=== PATIENT | female | born 1965 | race Caucasian/White ===

== ENCOUNTER 2017-09-14 14:54 | Inpatient (IN) ==
[2017-09-14] MEDS ORDERED: Ondansetron 4 MG/2 ML VIAL IVP ONE (15:26)
[2017-09-14] MEDS ORDERED: 0.9 % Sodium Chloride 500 ML IVC ONE ×2 (15:28→17:38)
--- NOTE | 2017-09-14 15:30 | Emergency Department Note ---
START Narrative - START START: I examined this patient and my medical decision-making was reviewed with the Resident Physician. I agree with the documented findings, disposition and treatment plan as described except to the extent set forth below. 32-year-old female presents emergency room for intractable nausea and vomiting. Patient had a pacemaker defibrillator placed on Tuesday at [facility]. Ever since then she has been ill with intractable nausea and vomiting. She denies diarrhea or constipation. No fevers. No chest pain at this time. No new medications. Patient states she has been unable T any solid food since before her procedure. No other complaints this time. We will check some screening lab work. We will do a CT abdomen and pelvis as well. At on a chest x-ray. Her EKG is a paced rhythm.
--- NOTE | 2017-09-14 15:30 | Emergency Department Note ---
Disposition Clinical Impression: Small bowel obstruction Sepsis Qualifiers: Sepsis type: sepsis due to unspecified organism Qualified Code(s): A41.9 - Sepsis, unspecified organism Pneumonia Qualifiers: Pneumonia type: due to unspecified organism Laterality: bilateral Lung location : lower lobe of lung Qualified Code(s): J18.9 - Pneumonia, unspecified organism Dyspnea Qualifiers: Dyspnea type: shortness of breath Qualified Code(s): R06.02 - Shortness of breath; R06.00 - Dyspnea, unspecified; R06.01 - Orthopnea Disposition: Admitted As Inpatient Condition: Fair Forms: ED Satisfaction Letter Time of Disposition: 18:36 Nausea/Vomiting/Diarrhea HPI - General Chief complaint: ED Nausea/Vomiting/Diarrhea Stated complaint: N/V Time Seen by Provider: 09/14/17 15:01 Source: EMS Mode of arrival: ambulatory Limitations: no limitations Nursing Notes Reviewed: Yes Vital Signs Reviewed: Yes - History of Present Illness HPI Narrative: Ms. Lazo is a 52yo woman with history of sarcoidosis, bradycardia s/p AICD placement with replacement of BiV AICD on Tuesday at [facility] who presents to the ED for intractable nausea/vomiting following the procedure. She said that she has not been taking any opioid pain medication since leaving the hospital. She is unable to maintain any solid foods or liquids. She has associated pain in her abdomen which does not radiate, and is cramping in nature. Additionally, she says that she takes requip for RLS, and she has not been able to take her meds due to the n/v so her legs are cramping intensely. Significantly, the patient does have history of multiple abdominal surgeries including cholecystectomy, hysterectomy. Pt Subjective Complaint: nausea, vomiting, abdominal pain Onset (ago): day(s) Description of emesis: food contents, watery, bilious Associated Abdominal Pain: Yes If pain, Location of pain: diffuse, epigastric Severity: moderate Severity scale (1-10): 7 Quality: cramping Consistency: intermittent Improves with: nothing Worsens with: eating, vomiting, movement Context: recent surgery/procedure, history of abdominal surgery Associated symptoms: Denies: fever/chills, shortness of breath, syncope - Related Data Home Medications Medication Instructions Recorded Confirmed Aspirin 81 mg PO DAILY 05/09/15 07/08/17 Atorvastatin [Lipitor] 10 mg PO HS 05/09/15 07/08/17 Furosemide [Lasix] 20 mg PO DAILY 05/09/15 07/08/17 Metoprolol XL (24 HR) Succ [Toprol 25 mg PO HS 05/09/15 07/08/17 XL] Ropinirole HCl [Requip] 2 mg PO HS 02/01/16 07/08/17 Diclofenac Sodium [Voltaren] 75 mg PO BID PRN 01/14/17 07/08/17 Fluticasone Propionate [Flovent 2 puff IH BID 07/08/17 07/08/17 Hfa] Gabapentin [Neurontin] 600 mg PO TID 07/08/17 07/08/17 Melatonin [Melatin] 9 mg PO HS 07/08/17 07/08/17 Omeprazole [PriLOSEC] 40 mg PO DAILY 07/08/17 07/08/17 Potassium Chloride [K-Tab ER] 20 meq PO Q48H 07/08/17 07/08/17 Previous Rx's Medication Instructions Recorded Fluconazole [Diflucan] 150 mg PO ONCE #1 tablet 07/10/17 Sulfamethoxazole/Trimeth DS 1 each PO BID #10 tablet 07/10/17 [Bactrim DS] Lidocaine 1 each TP QDPC #14 adh..patch 08/28/17 Allergies Allergy/AdvReac Type Severity Reaction Status Date / Time nitrofurantoin AdvReac Mild Rash Verified 08/28/17 11:18 [From Macrobid] Review of Systems: CONSTITUTIONAL: No weight loss, fever, chills, weakness or fatigue. HEENT: Eyes: No visual loss, blurred vision, double vision or yellow sclerae. Ears, Nose, Throat: No hearing loss, sneezing, congestion, runny nose or sore throat. SKIN: No rash or itching. CARDIOVASCULAR: No chest pain, chest pressure or chest discomfort. No palpitations or edema. RESPIRATORY: No shortness of breath, cough or sputum. GASTROINTESTINAL: + n/v, abdominal pain NEUROLOGICAL: No headache, dizziness, syncope, paralysis, ataxia, numbness or tingling in the extremities. No change in bowel or bladder control. MUSCULOSKELETAL: Leg cramping while walking HEMATOLOGIC: No anemia, bleeding or bruising. LYMPHATICS: No enlarged nodes. No history of splenectomy. PSYCHIATRIC: No history of depression or anxiety. ENDOCRINOLOGIC: No reports of sweating, cold or heat intolerance. No polyuria or polydipsia. ALLERGIES: No history of asthma, hives, eczema or rhinitis. Past Medical History - Past Medical History Medical history: Reports: other Surgical history: Reports: cholecystectomy, hysterectomy, pacemaker/AICD, LYNNE/ BSO, other Psychiatric history: Reports: anxiety ABRASIVE GRINDER history: Reports: no ABRASIVE GRINDER history - Social History Smoking Status: Never smoker Smokeless Tobacco Status: No Alcohol use: Reports: none Drug use: Reports: none Physical Exam Gen.: Vitals noted. No acute distress. AAOx3 HEENT: PERRL/EOMI, oropharynx clear and mildly dry, Normocephalic, atraumatic Neck: Supple. No adenopathy. Cardiac: RRR, no murmur, +S1/S2 Chest: Bandage present over recent surgical incision without evidence of infection Pulmonary: CTA bilaterally, Poor inspiratory effort, no wheezes, rales or rhonchi, equal chest expansion Abdomen: Mildly distended, diffuse tenderness to palpation with worsening over epigastric region, no guarding Back: Nontender throughout. MSK: ROM intact, no joint swelling noted Extremities: no BLE edema, nontender calf, no cyanosis or clubbing Neuro: A&Ox3, moves all extremities, no focal deficits Psych: Appropriate mood and behavior - General Limitations: no limitations General appearance: alert Course - Reevaluation(s) Reevaluation #1: The patient has developed tachycardia following Time: 17:05 Reevaluation #2: CT demonstrates multifocal pneumonia, SBO, and possible UTI. WBC 21.3, patient has become tachycardic and is flushed. Urine, blood cultures x2 and lactic acid are pending. We will give the patient 1000ml ns bolus and start 125mls/hr. We are cautious to give fluids too quickly because of the patient's cardiac status. Starting broad spectrum antibiotics, NG tube and NPO diet. Contacting hospitalist for admission. Time: 17:44 Vital Signs Temperature 98.3 F 09/14/17 14:59 Pulse Rate 72 09/14/17 14:59 Respiratory Rate 22 09/14/17 14:59 Blood Pressure 117/83 09/14/17 14:59 O2 Sat by Pulse Oximetry 96 09/14/17 14:59 Temperature 98.3 F 09/14/17 14:59 Pulse Rate 72 09/14/17 14:59 Respiratory Rate 22 09/14/17 14:59 Blood Pressure 117/83 09/14/17 14:59 O2 Sat by Pulse Oximetry 98 09/14/17 15:25 Oxygen Delivery Oxygen Delivery Nasal Cannula Nausea/Vomiting/Diarrhea - [facility] Narrative Medical decision making narrative: Mrs. Lazo is a 52-year-old woman with history of sarcoidosis, bradycardia status post AICD reinsertion on Tuesday at [facility] present ED with intractable nausea and vomiting of 2 days' duration. She has been unable to maintain his fluid or solid diet, nor has she been able to take her medications. She is complaining of abdominal pain and tenderness, bloating, and pain in her legs it is associated with RLS which she has had chronically. At this time most pain is coming from the legs which she rates 10 out of 10, in which is usually resolved with the addition of her medication. Hepatitis admission her vitals are stable, she appears mildly distressed. Her EKG shows a paced rhythm but is initially unremarkable. CT shows multifocal pneumonia and SBO. Blood cultures, lactic acid, ABG are drawn. Broad spectrum antibiotics are started, and IVF fluids for sepsis are started. Fluids are started cautiously due to cardiac status and risk for fluid overload. The patient is NPO and NG tube is placed. The patient is accepted for admission by Dr. Toth. - Medical Records Medical records reviewed: Yes I reviewed the patient's medical records. - Lab Data Lab results reviewed: Yes I reviewed the patient's lab results. Result diagrams: 09/14/17 16:24 Lab Results 09/14/17 Range/Units 16:24 WBC 21.3 H (4.3-11.1) K/mcL RBC 5.89 H (3.82-4.97) M/mcL Hgb 15.8 H (11.5-15.4) g/dL Hct 51.1 H (35.3-44.9) % MCV 86.8 (83.0-100.0) fL MCH 26.8 L (28.0-33.3) pg MCHC 30.9 L (31.6-35.5) g/dL RDW 17.3 H (11.5-14.5) % Plt Count 364 (140-400) K/mcL MPV 9.1 L (9.4-12.4) fL Immature Gran % 0.6 (0-4) % Seg Neutrophils % 76.5 % Lymphocytes % 14.4 % Monocytes % 7.9 % Eosinophils % 0.4 % Basophils % 0.2 % Neutrophils # 16.3 H (1.6-8.9) K/mcL Lymphocytes # 3.1 (0.6-4.6) K/mcL Monocytes # 1.7 H (0.0-1.3) K/mcL Eosinophils # 0.1 (0.0-0.6) K/mcL Basophils # 0.1 (0.0-0.2) K/mcL Nucleated RBCs/100 WBC 0.1 H (0) /100 WBC - Radiology Data Radiology results reviewed: Yes I reviewed the patient's radiology results. - EKG Data EKG attestation: Yes I reviewed and interpreted this EKG. EKG results narrative: EKG demonstrates ventricular paced rhythm with a rate of 66, VT interval 132, QRS 129, QTC 367 with no other interpretation possible
[2017-09-14] MEDS ORDERED: rOPINIRole 1 MG TABLET PO ONE (15:37)
[2017-09-14 16:51] LABS: Basophils # 0.1 K/mcL (0.0-0.2); Basophils % 0.2 %; Eosinophils # 0.1 K/mcL (0.0-0.6); Eosinophils % 0.4 %; Hematocrit 51.1 % (35.3-44.9); Hemoglobin 15.8 g/dL (11.5-15.4); Immature Granulocytes % 0.6 % (0-4); Lymphocytes # 3.1 K/mcL (0.6-4.6); Lymphocytes % 14.4 %; Mean Corpuscular HGB Conc 30.9 g/dL (31.6-35.5); Mean Corpuscular Hemoglobin 26.8 pg (28.0-33.3); Mean Corpuscular Volume 86.8 fL (83.0-100.0); Mean Platelet Volume 9.1 fL (9.4-12.4); Monocytes # 1.7 K/mcL (0.0-1.3); Monocytes % 7.9 %; Neutrophils # 16.3 K/mcL (1.6-8.9); Nucleated Red Blood Cells 0.1 /100 WBC (0); Platelet Count 364 K/mcL (140-400); Red Blood Count 5.89 M/mcL (3.82-4.97); Red Cell Distribution Width 17.3 % (11.5-14.5); Segmented Neutrophils % 76.5 %
[2017-09-14 17:12] LABS: Albumin 5.2 g/dL (3.5-5.7); Albumin/Globulin Ratio 1.4 (1.1-2.2); Bilirubin,Total 0.7 mg/dL (0.3-1.0); Calcium 11.2 mg/dL (8.6-10.3); Globulin 3.7 g/dL (2.4-3.5); Potassium 3.2 mEq/L (3.5-5.1); Total Protein 8.9 g/dL (6.4-8.9)
[2017-09-14] MEDS ORDERED: Vancomycin 1,000 MG in D5% in Water 250 ML IVPB ONE (17:29)
[2017-09-14] MEDS ORDERED: 0.9 % Sodium Chloride 1,000 ML IVC SCH (17:45)
[2017-09-14 17:57] LABS: Bilirubin,Urine Negative (Negative); Blood,Urine Negative (Negative); Clarity,Urine Cloudy (Clear); Color,Urine Yellow (Yellow); Glucose,Urine (UA) Normal (Normal); Ketones,Urine Negative (Negative); Leukocyte Esterase,Urine Negative (Negative); Nitrite,Urine Negative (Negative); PH,Urine 7.5 pH Units (5.0-8.0); Protein,Urine 100 mg/dL (Neg-Trace); Specific Gravity,Urine 1.019 (1.010-1.025); Urobilinogen,Urine Normal (Normal)
[2017-09-14 18:01] LABS: Bacteria,Urine None Seen per hpf (None-Few); Hyaline Casts,Urine Few per lpf (None-Few); Squamous Epithelial Cell,Urine Many per lpf (None-Few); WBC,Urine 0-3 per hpf (0-3)
[2017-09-14 18:42] LABS: ABG Base Excess 17 mEq/L (-2 to 3); ABG HCO3 43 mEq/L (21-27); ABG Oxygen Saturation 97 % (95-98); ABG PCO2 55 mmHg (35-45); ABG PO2 81 mmHg (85-104); ABG TCO2 45 mEq/L (20-26)
[2017-09-14] MEDS ORDERED: Cefepime HCl 2,000 MG in Water for inj. (sterile) 20 ML IVP ONE (18:50)
[2017-09-14] MEDS ORDERED: *HR* Enoxaparin 100 MG/ML SYRINGE SQ STA (19:43)
[2017-09-14] MEDS ORDERED: Aspirin 325 MG TABLET PO ONE (19:43)
[2017-09-14] MEDS ORDERED: Naloxone 0.4 MG/ML INJ IVP PRN (21:46)
[2017-09-14 22:02] LABS: Magnesium 2.6 mg/dL (1.6-2.6); Phosphorous 6.8 mg/dL (2.7-4.5)
[2017-09-14] MEDS ORDERED: 0.9 % Sodium Chloride 1,000 ML IVC ONE (22:17)
--- NOTE | 2017-09-14 23:53 | Internal Med History&Physical ---
<Abraham Hand - Last Filed: 09/15/17 01:03> Date of Encounter: 09/14/17 Time of Encounter: 21:00 Assessment and Plan (1) Small bowel obstruction Current visit: Yes Status: Acute Acute small bowel obstruction. CT of the abdomen/pelvis today without contrast demonstrates that there is a moderate gastric distention with moderate dilatation of multiple proximal small bowel loops to the level of the lower midabdomen whereby a transition point is noted. There is a small bowel feces sign within the small bowel loops just proximal to the transition point. This is consistent with a small bowel obstruction likely secondary to an intra- abdominal adhesion. No obstructing mass lesion is identified. Small bowel distal to the transition point is collapsed. The colon is unremarkable. The appendix is normal. Surgery consult ordered and discussed w/Dr. Ibrahim and I appreciate the consult. NG tube placed for decompression w/copious amounts of liquid suctioned intermittently. Pt. received two 1L boluses of 0.9 NS and will be followed by 125 mL/HR. Will hold all meds and keep pt. NPO. Metoprolol IVP 2.5 mg Q6 PRN if SBP >140. Monitor I&O and daily weight. Pt. discussed w/Dr. Gunter who agrees w/plan of care. Pt. is at high risk for further morbidity d/t current sepsis, multifocal pneumonia, and small bowel obstruction. Inpatient. (2) Pneumonia Current visit: Yes Status: Acute Acute multifocal pneumonia. CT of the abdomen/pelvis without contrast today shows a new multifocal airspace consolidation with a right middle lobe lingula and bilateral lower lobe since the study of 07/08/2017 most consistent with multifocal pneumonia. A few scattered nodular opacities within the bilateral lung bases are stable and unchanged and are likely in infectious or inflammatory in etiology. WBC 21.3. Blood cultures x2. IVPB levaquin 750 mg Q48 (for renal dosing) and Zosyn 3.375 gm Q for infection coverage. Will adjust abx coverage based on culture results. Supplemental O2 titration with SPO2 monitoring. DuoNeb every 6 scheduled. Monitor pt. and f/u labs. Qualifiers: Pneumonia type: due to unspecified organism Laterality: bilateral Lung location: lower lobe of lung Qualified Code(s): J18.9 - Pneumonia, unspecified organism (3) Sepsis Current visit: Yes Status: Acute Pt. currently meets sepsis criteria based on WBC of 21.3, HR of 114 bpm, RR of 20, and multifocal pneumonia. Lactic acid ordered. Blood cultures x2. Pt. received two 1L boluses of 0.9 NS in ED followed by 125 mL/HR. IVPB levaquin 750 mg Q48 for renal dosing and Zosyn 3.375 gm Q8 for infection coverage. Will adjust abx coverage based on culture results. Monitor pt. and f/u labs. Continuous cardiac telemetry. Supplemental O2 w/titration and SpO2 monitoring. DuoNebs Q6 scheduled. Qualifiers: Sepsis type: sepsis due to unspecified organism Qualified Code(s): A41.9 - Sepsis, unspecified organism (4) Elevated troponin Current visit: Yes Status: Acute Acutely elevated troponin of 0.19 on admission. Pt. denies chest pain or any previous cardiac hx/angioplasty/stent placement. Possible demand ischemia d/t recurrent N/V and/or sepsis/infection r/t multifocal pneumonia. Trend x2. Continuous cardiac telemetry. Echocardiogram ordered. Will consider heparin drip based on echocardiogram/troponin results. (5) KELSIE (acute kidney injury) Current visit: Yes Status: Acute Acute kidney injury w/GFR of 26 and creatinine of 2.03 most likely d/t recurrent N/V and electrolyte imbalance and subsequent dehydration. IV fluid resuscitation. Avoid nephrotoxins. IVPB abx given w/renal dosing. Will monitor pt. and f/u labs. (6) Hypokalemia Current visit: Yes Status: Acute Acute hypokalemia most likely d/t recurrent N/V over the past two days. Potassium 3.2 on admission. D5 .45 w/20 mEq potassium ordered as well as 60 mEq IVPB over 6 hours d/t NG tube and current large amounts of gastric fluids being suctioned. Will monitor pt. and f/u labs for potassium status. Continuous cardiac telemetry. (7) Abnormal ABGs Current visit: Yes Status: Acute Acutely abnormal ABGs. 7.5 pH, 55 PCO2, 81 PO2, 43 HCO3, and total CO2 45. Base excess 17. Pt. placed on supplemental O2 with titration and SPO2 monitoring. Pt. currently reports no respiratory distress on nasal cannula. Will add BiPAP if patient becomes hypoxic. (8) CHF (congestive heart failure) Current visit: Yes Status: Chronic Hx of chronic CHF. Stable. Qualifiers: Congestive heart failure type: unspecified congestive heart failure type Congestive heart failure chronicity: unspecified congestive heart failure chronicity Qualified Code(s): I50.9 - Heart failure, unspecified (9) GERD (gastroesophageal reflux disease) Current visit: Yes Status: Chronic Hx of chronic GERD. IVP phenergan 12.5 mg Q6 PRN. IVP Protonix 40 mg BID. Qualifiers: Esophagitis presence: esophagitis presence not specified Qualified Code(s) : K21.9 - Gastro-esophageal reflux disease without esophagitis (10) HLD (hyperlipidemia) Current visit: Yes Status: Chronic Hx of chronic HLD. Lipid panel ordered in a.m. labs. Will continue Lipitor when pt. able to keep medications down. Qualifiers: Hyperlipidemia type: pure hypercholesterolemia Qualified Code(s): E78.00 - Pure hypercholesterolemia, unspecified; E78.0 - Pure hypercholesterolemia (11) HTN (hypertension) Current visit: Yes Status: Chronic Hx of chronic HTN. Monitor pt. and VS. Administer 2.5 mg metoprolol IVP Q6 if SBP >140. Qualifiers: Hypertension type: essential hypertension Qualified Code(s): I10 - Essential (primary) hypertension (12) Pacemaker Current visit: Yes Status: Chronic Hx of chronic pacemaker/AICD. Pt. reports replacement of BiV AICD at [facility] on Tuesday. Incision does not appear to be erythematous or infectious. Wound care consult and daily wound care ordered. (13) Sarcoidosis Current visit: Yes Status: Chronic Hx of chronic sarcoidosis. Stable. (14) DVT prophylaxis Current visit: Yes Status: Acute Bilateral SCDs on LEs for DVT prophylaxis. Internal Medicine - H&P: HPI Chief complaint: Abdominal pain/N/V Admitted From: Emergency Dept Plans for Post Hospital Care: Home History of present illness: Ms. Lazo is a 52 year old female with medical history of congestive heart failure, HTN, HLD, GERD, RLS, and sarcoidosis presents from ED with chief complaint of abdominal pain, nausea, and vomiting for the past 2 days. Patient reports this has never happened before. She states she was at [facility] on Tuesday for AICD replacement and began having intractable nausea and vomiting following the procedure. She states she is unable to keep down any solid foods or liquids and that the abdominal pain is epigastric and cramping. Patient states she takes Requip for restless leg syndrome is unable to take its her legs are cramping severely. Patient denies recent illness, fever, chills, headache, changes in vision, chest pain, palpitations, diarrhea, constipation, unusual bleeding, dizziness, lightheadedness, numbness, tingling, pre-syncope, or syncope. Past Med Surg Social Fam HX - Past Medical History Source: patient, old records reviewed Medical history: GERD, hyperlipidemia, hypertension Psychiatric history: anxiety - Past Surgical History Surgical History: cholecystectomy, hysterectomy, pacemaker/AICD, LYNNE/BSO - Social History Smoking Status: Never smoker Smokeless Tobacco Status: No Alcohol use: none Drug use: none Current living situation: Home Activity Level: Independent ambulation Recent Out of Country Travel Within the Last 8 Weeks: No Exposure or Possible Exposure to Illness During Travel: No - Family History Brother Race: Family Member Ethnicity: Non- Living Status: Still Living Hx Family Endocrine Disorder: Yes (DM) Mother Race: Family Member Ethnicity: Non- Living Status: Still Living Hx Family Respiratory Disorders: Yes (Asthma) Hx Family Neuromuscular Disorders: Yes (Parkinson's disease) Father Race: Family Member Ethnicity: Non- Living Status: Still Living Hx Family Cardiac Disorders: Yes (Triple bypass, CAD, MA, HTN) Internal Medicine - H&P: Meds Aspirin 81 mg PO DAILY 05/09/15 [History] Atorvastatin [Lipitor] 10 mg PO HS 05/09/15 [History] Furosemide [Lasix] 20 mg PO DAILY 05/09/15 [History] Metoprolol XL (24 HR) Succ [Toprol XL] 25 mg PO HS 05/09/15 [History] Ropinirole HCl [Requip] 2 mg PO HS 02/01/16 [History] Diclofenac Sodium [Voltaren] 75 mg PO BID PRN 01/14/17 [History] Fluticasone Propionate [Flovent Hfa] 2 puff IH BID PRN 07/08/17 [History] Gabapentin [Neurontin] 600 mg PO TID 07/08/17 [History] Melatonin [Melatin] 9 mg PO HS 07/08/17 [History] Omeprazole [PriLOSEC] 40 mg PO DAILY 07/08/17 [History] Potassium Chloride [K-Tab ER] 20 meq PO Q48H 07/08/17 [History] Fluconazole [Diflucan] 150 mg PO ONCE #1 tablet 07/10/17 [Rx] Lidocaine 1 each TP QDPC PRN 09/14/17 [History] Sulfamethoxazole/Trimeth DS [Bactrim DS] 1 each PO 3XW 09/14/17 [History] 3 Allergy/AdvReac Type Severity Reaction Status Date / Time nitrofurantoin AdvReac Mild Rash Verified 08/28/17 11:18 [From Macrobid] All Systems PM: A 10-system review of systems was performed and is negative for pertinent findings except as documented above in the HPI. - Constitutional Constitutional: no chills, no fever(s), no night sweats - EENT Eyes: no change in vision, no discharge, no pain, no photophobia Ears: no ear discharge, no ear pain, no tinnitus Nose, mouth and throat: no dysphagia, no nasal discharge, no neck pain, no sore throat - Breasts Breasts: as per HPI - Cardiovascular Cardiovascular ROS IM: no chest pain, no diaphoresis, no dyspnea, no lightheadedness, no palpitations, no syncope - Respiratory Respiratory: no cough, no dyspnea, no wheezing, no excessive phlegm production - Gastrointestinal Gastrointestinal: as per HPI, abdominal pain, nausea, vomiting - Genitourinary Genitourinary: no change in urinary stream, no dysuria, no flank pain, no hematuria Menstruation: as per HPI - Musculoskeletal Musculoskeletal ROS IM: no numbness, no tingling - Integumentary Integumentary IM: no rash, no unusual bruising - Neurological Neurological ROS: no confusion, no convulsions, no focal weakness, no numbness, no tingling, no tremor(s) - Psychiatric Psychiatric: as per HPI, anxiety - Endocrine Endocrine IM: as per HPI - Hematologic/Lymphatic Hematologic/Lymphatic: no easy bruising - Allergic/Immunologic Allergic/Immunologic: as per HPI - Constitutional Vitals: Temp Pulse Resp BP Pulse Ox 98.1 F 114 16 135/84 91 09/14/17 23:34 09/14/17 23:34 09/14/17 23:34 09/14/17 23:34 09/14/17 23:34 General appearance: Present: cooperative, mild distress, A&O X 3, pleasant, obese, answers questions appropriately - Head Head exam: Present: atraumatic, normocephalic - Eye Eye exam: Present: PERRL, conjuntiva pink, sclera anicteric Pupils: Present: PERRL - ENT ENT exam: Present: normal exam, normal external ear exam - Neck Neck exam general surgery: Present: normal inspection, supple, trachea midline. Absent: lymphadenopathy - Respiratory Respiratory exam: Present: CTAB, tachypnea. Absent: accessory muscle use, rales , rhonchi, wheezes - Cardiovascular Cardiovascular exam: Present: +S1, +S2, tachycardia. Absent: diastolic murmur, gallop, rubs, systolic murmur - GI/Abdominal GI/Abdominal exam: Present: diminished bowel sounds, guarding, soft, no peritoneal signs. Absent: distended, tenderness - Rectal Rectal exam: Present: deferred - Additional comments: exam deferred. - Extremities Exam Extremities exam: Present: warm, radial pulses palpable and symmetrical. Absent : calf tenderness, cyanotic, pedal edema - Back Exam Back exam: Present: normal inspection - Neurological Exam Neurological exam: Present: CN II-XII intact, oriented X3, no focal deficits. Absent: pronater drift, facial droop, speech deficit - Psychiatric Psychiatric exam: Present: normal affect, normal mood - Skin Skin exam: Present: dry, intact Internal Med - H&P Results - Labs CBC & Chem 7: 09/14/17 16:24 09/14/17 16:24 - Diagnostic Studies CT scan - abdomen Additional comments: Impressions Abdomen/Pelvis CT 09/14/17 15:22 IMPRESSION: 1. Findings are consistent with a small bowel obstruction within the lower mid abdomen, with a focal transition point noted, likely secondary to an intra-abdominal adhesion. There is no evidence of pneumatosis, perforation, or free air. 2. A 4 mm calculus within the right kidney lower pole, without evidence of a ureteral calculus or hydronephrosis. 3. Mild amount of nonspecific intraluminal gas within the urinary bladder, likely secondary to prior instrumentation. A gas-forming cystitis is considered less likely. 4. Patient status post cholecystectomy and hysterectomy. 5. New multifocal consolidative opacity within bilateral lung bases, most consistent with multifocal pneumonia. D/ / 09/14/2017 17:43:21 Nik Rordiguez MD / Tisha Fuentes Interpreting Provider: Nik Rodriguez MD Chest x-ray Additional comments: Impressions Chest X-Ray 09/14/17 15:27 IMPRESSION: Bibasilar volume loss. Otherwise, stable chest D/ / Anderson Hall MD / Anderson Hall MD Interpreting Provider: Anderson Hall MD <LyricBrianda N - Last Filed: 09/15/17 01:49> Date of Encounter: 09/15/17 Internal Medicine - H&P: HPI History of present illness: Ms. Lazo is a 52 year old female All Systems PM: A 10-system review of systems was performed and is negative for pertinent findings except as documented above in the HPI. - Constitutional Vitals: Temp Pulse Resp BP Pulse Ox 98.1 F 114 16 135/84 91 09/14/17 23:34 09/14/17 23:34 09/14/17 23:34 09/14/17 23:34 09/14/17 23:34 Internal Med - H&P Results - Labs CBC & Chem 7: 09/14/17 16:24 09/14/17 16:24 - Attending Attestation Patient seen and examined, history and physical reviewed, discussed with Abraham Hand. [employer]. Agree with plan as discussed above. Patient came to the hospital was complaining of intractable nausea and vomiting. Patient denies any abdominal pain, patient denies any dysuria or hematuria, patient denies any fever or chills. Patient denies any chest pain or shortness of breath. Patient denies any cough. CT abdomen was consistent with small bowel obstruction Nasogastric tube placed and patient had high output from her NG tube O. Vital signs stable Chest decreased breathing sound bilateral Heart S1 is normal regular rate and rhythm Abdomen soft bowel sound diminished in all 4 quadrant Extremity no edema Assessment and plan Small bowel obstruction Multifocal pneumonia For now continue nasogastric tube, IV hydration, replace electrolytes, surgery was notified, discussed with patient about plan of conservative management for now. Patient was recently admitted to the hospital for AICD will cover for healthcare associated pneumonia .
[2017-09-14] MEDS: D5% in 0.45% NACL w KCl 20 MEQ/1,000 ML MLS IVC SCH (23:57)
[2017-09-14] MEDS: Pantoprazole 40 MG VIAL IVP SCH (23:57)
[2017-09-14] MEDS: Levofloxacin 750 MG/150 ML 750 MG/150 ML BAG IVPB SCH (23:58)
[2017-09-15 01:02] LABS: Basophils # 0.1 K/mcL (0.0-0.2); Basophils % 0.4 %; Eosinophils # 0.1 K/mcL (0.0-0.6); Eosinophils % 0.4 %; Hematocrit 46.7 % (35.3-44.9); Hemoglobin 14.6 g/dL (11.5-15.4); Immature Granulocytes % 0.4 % (0-4); Lymphocytes # 2.5 K/mcL (0.6-4.6); Lymphocytes % 13.8 %; Mean Corpuscular HGB Conc 31.3 g/dL (31.6-35.5); Mean Corpuscular Hemoglobin 27.2 pg (28.0-33.3); Mean Corpuscular Volume 87.1 fL (83.0-100.0); Mean Platelet Volume 8.9 fL (9.4-12.4); Monocytes # 1.5 K/mcL (0.0-1.3); Monocytes % 8.3 %; Neutrophils # 13.9 K/mcL (1.6-8.9); Platelet Count 292 K/mcL (140-400); Red Blood Count 5.36 M/mcL (3.82-4.97); Red Cell Distribution Width 16.7 % (11.5-14.5); Segmented Neutrophils % 76.7 %
[2017-09-15 01:17] LABS: Magnesium 2.5 mg/dL (1.6-2.6); Phosphorous 6.1 mg/dL (2.7-4.5)
[2017-09-15] MEDS: D5% in 0.45% NACL w KCl 20 MEQ/1,000 ML MLS IVC SCH ×4 (01:44→18:36)
[2017-09-15] MEDS: Levofloxacin 750 MG/150 ML 750 MG/150 ML BAG IVPB SCH (01:57)
[2017-09-15] MEDS: Piperacillin/Tazobactam 3.375 GM/200 ML BAG IVPB SCH ×3 (01:58→23:47)
[2017-09-15 03:07] LABS: Albumin 4.4 g/dL (3.5-5.7); Albumin/Globulin Ratio 1.3 (1.1-2.2); Calcium 9.7 mg/dL (8.6-10.3); Chol/HDL Ratio 2.9 (0-4.9); Globulin 3.3 g/dL (2.4-3.5); Total Protein 7.7 g/dL (6.4-8.9)
[2017-09-15] MEDS: Ipratropium/Albuterol Neb 3 ML IH SCH ×4 (04:39→21:07)
[2017-09-15] MEDS: Pantoprazole 40 MG VIAL IVP SCH (05:53)
[2017-09-15] MEDS: *HR* Metoprolol 5 MG/5 ML VIAL IVP SCH ×5 (05:53→23:44)
[2017-09-15] MEDS: *HR* HYDROmorphone (PF) 1 MG/ML SYRINGE IVP PRN ×4 (06:24→21:43)
--- NOTE | 2017-09-15 11:02 | Internal Med Progress Note ---
Date of Encounter: 09/15/17 Time of Encounter: 09:30 - Assessment and plan (1) Small bowel obstruction Current Visit: Yes Status: Acute Assessment and plan: Acute SBO at the level of the lower mid abdomen likely due to intra-abdominal adhesion - causing abdominal pain, nausea and vomiting NPO, IV fluids, NG tube decompression, IV Dilaudid PRN, IV Protonix, IV Zofran CT abdomen and pelvis - reviewed Chest x-ray - bibasilar volume loss WBC - 18.2 UA - negative Gen. surgery consult - Dr. Ibrahim will evaluate patient Cardiac telemetry, strict I's and O's, labs in a.m. (2) Pneumonia Current Visit: Yes Status: Acute Assessment and plan: Sepsis, present on admission - secondary to Bilateral multifocal pneumonia, present on admission, possible healthcare associated, likely bacterial Continue DuoNeb breathing treatment, IV Levaquin, IV Zosyn, O2 via NC Chest x-ray - bibasilar volume loss CT abdomen - multifocal consolidative opacity within bilateral lung bases, likely multifocal pneumonia Lactic acid - 2.5 WBC - 18.2 Cultures - pending Cardiac telemetry, pulse ox, strict intake output, daily weight, labs in a.m. Qualifiers: Pneumonia type: due to unspecified organism Laterality: bilateral Lung location: lower lobe of lung Qualified Code(s): J18.9 - Pneumonia, unspecified organism (3) KELSIE (acute kidney injury) Current Visit: Yes Status: Acute Assessment and plan: Acute kidney injury - likely secondary to sepsis and volume depletion/ dehydration due to vomiting Continue IV fluids, repeat labs in a.m. Nephrology consult if renal function worsens (4) Elevated troponin Current Visit: Yes Status: Acute Assessment and plan: Troponin - 0.18, cycle troponin - possibly elevated due to pneumonia, sepsis and recurrent nausea/vomiting and nonischemic cardiomyopathy Patient denies history of CAD, denies chest pain or shortness of breath EKG - paced rhythm Echocardiogram - pending (5) Cardiomyopathy Current Visit: Yes Status: Chronic Assessment and plan: History of nonischemic cardiomyopathy - improved EF with S[employer]IOR [employer] SUPPORT therapy S/p BiV AICD placement on Tuesday at [facility] Echocardiogram - pending Qualifiers: Cardiomyopathy type: unspecified Qualified Code(s): I42.9 - Cardiomyopathy , unspecified (6) Hypokalemia Current Visit: Yes Status: Acute Assessment and plan: Hypokalemia likely due to nausea and vomiting KCl being replaced (7) Sarcoidosis Current Visit: Yes Status: Chronic Assessment and plan: Stable, patient is on Methotrexate weekly Follows up with pulmonology at [facility] (8) HTN (hypertension) Current Visit: Yes Status: Chronic Assessment and plan: Essential hypertension, controlled, monitor Continue home dose of Toprol-XL when patient is taking PO Qualifiers: Hypertension type: essential hypertension Qualified Code(s): I10 - Essential (primary) hypertension (9) HLD (hyperlipidemia) Current Visit: Yes Status: Chronic Assessment and plan: Patient is on Lipitor at home Qualifiers: Hyperlipidemia type: unspecified Qualified Code(s): E78.5 - Hyperlipidemia , unspecified (10) DVT prophylaxis Current Visit: Yes Status: Acute Assessment and plan: Heparin subcutaneous - Time Spent With Patient 25 - 35 minutes - Subjective Interval history: Examined this morning. Patient is awake and alert. Not in any distress. Denies chest pain or shortness of breath. NG tube in place. Patient states her abdominal pain is improved and vomiting is now resolved. She reports passing flatus. No other acute events or complaints. Hemodynamically stable. No fever. Patient does have a past medical history of CHF, hypertension, hyperlipidemia, GERD and sarcoidosis. She had an pacer/AICD placed at [facility] on Tuesday. Her rhythm is currently paced. Troponin is elevated. Admitted last night for acute small bowel obstruction. Patient also has multifocal pneumonia. We will continue IV antibiotics and DuoNeb breathing treatment. Surgery has been consulted. Cardiology consult pending. - Constitutional Vitals: Temp Pulse Resp BP Pulse Ox 98.2 F 98 16 138/80 92 09/15/17 10:38 09/15/17 10:38 09/15/17 10:46 09/15/17 10:38 09/15/17 10:46 General appearance: Present: cooperative, A&O X 3, pleasant, no acute distress, obese, answers questions appropriately - Head Head exam: Present: atraumatic - Eye Eye exam: Present: EOMI - ENT ENT exam: Present: mucous membranes dry Additional comments: NG tube in place - Respiratory Respiratory exam: Present: wheezes (Mild bilateral). Absent: accessory muscle use, chest wall tenderness, rales, respiratory distress, rhonchi, tachypnea - Cardiovascular Cardiovascular exam: Present: RRR, +S1, +S2 - GI/Abdominal GI/Abdominal exam: Present: diminished bowel sounds, distended, soft, tenderness (Mild epigastric and periumbilical tenderness), no peritoneal signs. Absent: firm, guarding - Extremities Exam Extremities exam: Present: pedal edema (Mild bilateral), radial pulses palpable and symmetrical. Absent: calf tenderness, cyanotic - Neurological Exam Neurological exam: Present: alert, oriented X3, no focal deficits. Absent: facial droop, speech deficit Internal Medicine: Result - Labs CBC & Chem 7: 09/15/17 00:51 09/15/17 00:51 Labs: Short CBC 09/15/17 Range/Units 00:51 WBC 18.2 H (4.3-11.1) K/mcL Hgb 14.6 (11.5-15.4) g/dL Hct 46.7 H (35.3-44.9) % Plt Count 292 (140-400) K/mcL Neutrophils # 13.9 H (1.6-8.9) K/mcL BMP 09/15/17 00:51 Sodium 147 H Potassium 3.0 L Chloride 90 L Carbon Dioxide 32 H BUN 40 H Creatinine 1.72 H Glucose 138 H Calcium 9.7 Cardiac Enzymes 09/15/17 Range/Units 00:51 Troponin I 0.18 H* (< 0.04) ng/mL Liver Function 09/15/17 Range/Units 00:51 Total Bilirubin 1.0 (0.3-1.0) mg/dL AST 25 (13-39) Units/L ALT 43 (7-52) Units/L Alkaline Phosphatase 104 (34-104) Units/L Albumin 4.4 (3.5-5.7) g/dL - ABG Interpretation ABG results: ABG ABG pH 7.50 pH Units (7.32-7.45) H 09/14/17 18:37 ABG pCO2 55 mmHg (35-45) H 09/14/17 18:37 ABG pO2 81 mmHg (85-104) L 09/14/17 18:37 ABG O2 Saturation 97 % (95-98) 09/14/17 18:37 Consult Discharge Plan - Plan Referrals: Cole Bryant, [facility] [Primary Care Provider] -
--- NOTE | 2017-09-15 12:50 | Cardiology Consult Note ---
<Tawana Ashley Teddy - Last Filed: 09/15/17 12:54> Date of Encounter: 09/15/17 Time of Encounter: 12:20 Assessment and Plan (1) Elevated troponin Current Visit: Yes Status: Acute Patient presents with elevated troponin in the setting of KELSIE, small bowel obstruction, and PNA; this likely secondary to demand ischemia. Of note, recently underwent upgrade to CLINICAL CARE MANAGER-D at [facility] on 09/12/17. TTE completed demonstrated improved LVEF 55-60%, was previously 40% at [facility] in June 2016. She denies chest pain or discomfort. LHC 2012 demonstrated normal coronary arteries. Continue home CV medications, when able (take PO), including asa, lipitor, lasix , & toprol XL No further cardiac testing recommended at this time. (2) Nonischemic cardiomyopathy Current Visit: Yes Status: Acute Hx of non-ischemic cardiomyopathy dating back to 2012. Now follows with EP at [facility]. Recent upgrade to CLINICAL CARE MANAGER-D on 09/12/17 at [facility]. TTE demonstrates improved LVEF, 55-60%. Continue home CV medications. Discussion w patient/family: The assessment and plan as outlined above was discussed with the patient and/or family members who expressed understanding and agreement. All questions were answered. Thank you for involving us in the care of your patient. Please call with any questions. The patient will be discussed and reviewed with Dr. Saleh; changes to be made accordingly. History of Present Illness Consult date: 09/15/17 Requesting physician: Jose Alberto Clark Consult reason: Elevated troponin Chief complaint: Nausea/vomiting History of present illness: Ms. Lazo is a 52 year old female with PMHx significant for AVB, nonischemic cardiomyopathy s/p CLINICAL CARE MANAGER-D (recent upgrade at [facility] on 09/12/17), and sarcoidosis who presented to the ED on 09/14/17 with complaints of nausea and vomiting. Patient reports symptoms started last Tuesday. Of note, recent upgrade of AICD at [facility], was discharged on 09/13/17. Imaging confirmed small bowel obstruction, was noted to have an KELSIE, UTI, and possible PNA. Cardiology consulted today for elevated troponin. Past Med Surg Social Fam HX - Past Medical History Attestation: Yes The following information was validated with the patient. Source: patient, old records reviewed, obtained from family Medical history: cardiomyopathy, GERD, hyperlipidemia, hypertension, other ( sarcoidosis) Psychiatric history: anxiety - Past Surgical History Surgical History: cholecystectomy, hysterectomy, LYNNE/BSO, AICD - Social History Smoking Status: Never smoker Smokeless Tobacco Status: No Alcohol use: none Drug use: none - Family History Brother Race: Family Member Ethnicity: Non- Living Status: Still Living Hx Family Endocrine Disorder: Yes (DM) Mother Race: Family Member Ethnicity: Non- Living Status: Still Living Hx Family Respiratory Disorders: Yes (Asthma) Hx Family Neuromuscular Disorders: Yes (Parkinson's disease) Father Race: Family Member Ethnicity: Non- Living Status: Still Living Hx Family Cardiac Disorders: Yes (Triple bypass, CAD, [place], HTN) Hx Family Respiratory Disorders: No Hx Family GI Disorders: Yes Medications and Allergies Aspirin 81 mg PO DAILY 05/09/15 [History] Atorvastatin [Lipitor] 10 mg PO HS 05/09/15 [History] Furosemide [Lasix] 20 mg PO DAILY 05/09/15 [History] Metoprolol XL (24 HR) Succ [Toprol XL] 25 mg PO HS 05/09/15 [History] Ropinirole HCl [Requip] 2 mg PO HS 02/01/16 [History] Diclofenac Sodium [Voltaren] 75 mg PO BID PRN 01/14/17 [History] Fluticasone Propionate [Flovent Hfa] 2 puff IH BID PRN 07/08/17 [History] Gabapentin [Neurontin] 600 mg PO TID 07/08/17 [History] Melatonin [Melatin] 9 mg PO HS 07/08/17 [History] Omeprazole [PriLOSEC] 40 mg PO DAILY 07/08/17 [History] Potassium Chloride [K-Tab ER] 20 meq PO Q48H 07/08/17 [History] Sulfamethoxazole/Trimeth DS [Bactrim DS] 1 each PO 3XW 09/14/17 [History] Amitriptyline [Elavil] 10 - 20 mg PO HS PRN 09/15/17 [History] BuPROPion XL (24 HR) [Wellbutrin XL] 150 mg PO BID 09/15/17 [History] FLUoxetine HCl [Prozac] 40 mg PO DAILY 09/15/17 [History] Folic Acid 1 mg PO DAILY 09/15/17 [History] Lidocaine Patch [Lidoderm 5% patch] 1 each TP DAILY 09/15/17 [History] Methotrexate [Otrexup] 10 mg PO QWEEK 09/15/17 [History] Mv,Fe,Min/Lutein [A Thru Z [employer] Women's Tablet] 1 tab PO DAILY 09/15/17 [ History] PredniSONE [Deltasone] 30 mg PO DAILY 09/15/17 [History] hydrOXYzine HCl [Hydroxyzine HCl] 25 mg PO BID 09/15/17 [History] 3 Allergy/AdvReac Type Severity Reaction Status Date / Time nitrofurantoin AdvReac Mild Rash Verified 08/28/17 11:18 [From Macrobid] All Systems Review: A 10-system review of systems was performed and is negative for pertinent findings except as documented above in the HPI. - Cardiovascular Cardiovascular: as per HPI Physical Examination Vital Signs, Last 4 Hours Temp Pulse Resp BP Pulse Ox 09/15/17 10:46 16 92 09/15/17 10:38 98.2 F 98 16 138/80 91 General: Conversant HEENT: Atraumatic, Normocephaly, Other (NGT to LWIS) Cardiac: Reg Rate and Rhythm, Normal S1 and S2 Lungs: Normal Breath Sounds Neuro: Alert and responsive Abdomen: Soft, Other (obese) Skin: No rashes noted on visualized skin Musculoskeletal: No Chest Wall Tenderness Extremities: No Edema, Normal Pulses Results 09/15/17 00:51 09/15/17 00:51 Lab Results 09/15/17 09/15/17 09/15/17 00:51 00:51 00:51 WBC 18.2 H Hgb 14.6 Hct 46.7 H Plt Count 292 Sodium 147 H Potassium 3.0 L Chloride 90 L Carbon Dioxide 32 H BUN 40 H Creatinine 1.72 H Glucose 138 H Calcium 9.7 Magnesium 2.5 Total Bilirubin 1.0 AST 25 ALT 43 Alkaline Phosphatase 104 Troponin I 0.18 H* Active Medications Albuterol/Ipratropium (Duoneb) 3 ml IH [id number] [facility] Stop: 03/17/18 04:01 Last Admin: 09/15/17 10:45 Dose: 3 ml Heparin Sodium (Porcine) (Heparin) 5,000 unit SQ Q8HCO [facility] Stop: 03/17/18 14:01 Hydromorphone HCl (Dilaudid) 0.5 mg IVP Q4HR PRN PRN Reason: Severe Pain (7-10) Stop: 03/16/18 21:33 Last Admin: 09/15/17 11:15 Dose: 0.5 mg Potassium Chloride/Dextrose/Sod Cl (Kcl 20meq In D5%-0.45 Nacl) 20 meq in 1, 000 mls @ 125 mls/hr IVC .Q8H [facility] Stop: 03/16/18 22:01 Last Admin: 09/15/17 11:19 Dose: 125 mls/hr Levofloxacin/Dextrose (Levaquin Premix 750mg/150 Ml) 750 mg in 150 mls @ 100 mls/hr IVPB Q48H ANDREA PRN Reason: Protocol Stop: 03/16/18 22:01 Last Admin: 09/15/17 01:57 Dose: 100 mls/hr Piperacillin Sod/Tazobactam Sod (Zosyn Premix 3.375 Gm/200 Ml) 3.375 gm in 200 mls @ 50 mls/hr IVPB Q8HR [facility] Stop: 03/17/18 00:01 Last Admin: 09/15/17 08:29 Dose: 50 mls/hr Metoprolol Tartrate (Lopressor) 2.5 mg IVP Q6HR [facility] Stop: 03/17/18 06:01 Last Admin: 09/15/17 12:56 Dose: Not Given Naloxone HCl (Narcan) 0.4 mg IVP Q2MIN PRN PRN Reason: Opioid Reversal Stop: 03/16/18 21:47 Pantoprazole Sodium (Protonix) 40 mg IVP DAILY@0700 [facility] Stop: 03/18/18 07:01 Promethazine HCl (Phenergan) 12.5 mg IVP Q6HR PRN PRN Reason: Nausea And Vomiting Stop: 03/16/18 21:33 - Imaging and Cardiology Echo: report reviewed Cardiac cath: report reviewed - EKG Interpretation EKG results cardiology: personally reviewed Consult Discharge Plan - Plan Referrals: Cole Bryant, MEDICAL RADIATION TECH [Primary Care Provider] - <Tiara Saleh - Last Filed: 09/15/17 17:20> Date of Encounter: 09/15/17 - Attending Attestation I examined this patient and my medical decision-making was reviewed with the MEDICAL RADIATION TECH. I agree with the documented findings, disposition and treatment plan. Patient presents with mild troponin elevation in setting of ARF, UTI, PNA and SBO. Recently had a device upgrade at [facility]. TTE completed demonstrating an improvement in LV systolic function, previously 40% in June 2016. She denies chest pain. EKG without acute findings. No further cardiac testing is warranted at this time. Troponins do not represent acute coronary syndrome. We will sign off. Please call with questions. Patient would like to follow with [facility] cardiology. Assessment and Plan Discussion w patient/family: The assessment and plan as outlined above was discussed with the patient and/or family members who expressed understanding and agreement. All questions were answered. Thank you for involving us in the care of your patient. Please call with any questions. History of Present Illness History of present illness: Ms. Lazo is a 52 year old female All Systems Review: A 10-system review of systems was performed and is negative for pertinent findings except as documented above in the HPI. Physical Examination Vital Signs, Last 4 Hours Temp Pulse Resp BP Pulse Ox 09/15/17 15:44 98.9 F 117 18 101/67 86 Results 09/15/17 00:51 09/15/17 00:51 Lab Results 09/15/17 09/15/17 09/15/17 00:51 00:51 00:51 WBC 18.2 H Hgb 14.6 Hct 46.7 H Plt Count 292 Sodium 147 H Potassium 3.0 L Chloride 90 L Carbon Dioxide 32 H BUN 40 H Creatinine 1.72 H Glucose 138 H Calcium 9.7 Magnesium 2.5 Total Bilirubin 1.0 AST 25 ALT 43 Alkaline Phosphatase 104 Troponin I 0.18 H*
[2017-09-15] MEDS ORDERED: Bisacodyl 10 MG RECTAL SUPPOSITORY RC ONE (13:33)
--- NOTE | 2017-09-15 13:33 | General Surgery Consult Note ---
Date of Encounter: 09/15/17 Time of Encounter: 13:28 History of Present Illness Consult date: 09/15/17 Requesting physician: Abraham Hand History of present illness: Called to see patient for radiologic findings (CT abd/pellvis) suggestive SBO. CT, personally reviewed with [facility], with findings reviewed. The patient describes prior surgical history to include: hernia repair as a child, cholecystectomy and robotic hysterectomy. One of these procedures may have caused internal adhesions/scarring contributing to the finding of SBO. At the time of my presentation at bedside; the patient was in no acute distress the abdominal pain had resolved and the nausea vomiting had ceased. The abdomen was soft, nontender. No intra-abdominal masses. No rebound. Bowel sounds were rare. The patient scribed passing flatus prior to me to remove the NG. Based on the patient's symptoms over the last 48 hours and the radiologic findings I will order a small bowel follow-through using Gastrografin. This is been discussed with the patient and her family in attendance. Complete surgical consultation is still pending. Past Med Surg Social Fam HX - Past Medical History Medical history: cardiomyopathy, GERD, hyperlipidemia, hypertension, other ( sarcoidosis) Psychiatric history: anxiety - Past Surgical History Surgical History: cholecystectomy, hysterectomy, LYNNE/BSO, AICD - Social History Smoking Status: Never smoker Smokeless Tobacco Status: No Alcohol use: none Drug use: none - Family History Brother Race: Family Member Ethnicity: Non- Living Status: Still Living Hx Family Endocrine Disorder: Yes (DM) Mother Race: Family Member Ethnicity: Non- Living Status: Still Living Hx Family Respiratory Disorders: Yes (Asthma) Hx Family Neuromuscular Disorders: Yes (Parkinson's disease) Father Race: Family Member Ethnicity: Non- Living Status: Still Living Hx Family Cardiac Disorders: Yes (Triple bypass, CAD, [place], HTN) Hx Family Respiratory Disorders: No Hx Family GI Disorders: Yes Medications and Allergies Aspirin 81 mg PO DAILY 05/09/15 [History] Atorvastatin [Lipitor] 10 mg PO HS 05/09/15 [History] Furosemide [Lasix] 20 mg PO DAILY 05/09/15 [History] Metoprolol XL (24 HR) Succ [Toprol XL] 25 mg PO HS 05/09/15 [History] Ropinirole HCl [Requip] 2 mg PO HS 02/01/16 [History] Diclofenac Sodium [Voltaren] 75 mg PO BID PRN 01/14/17 [History] Fluticasone Propionate [Flovent Hfa] 2 puff IH BID PRN 07/08/17 [History] Gabapentin [Neurontin] 600 mg PO TID 07/08/17 [History] Melatonin [Melatin] 9 mg PO HS 07/08/17 [History] Omeprazole [PriLOSEC] 40 mg PO DAILY 07/08/17 [History] Potassium Chloride [K-Tab ER] 20 meq PO Q48H 07/08/17 [History] Sulfamethoxazole/Trimeth DS [Bactrim DS] 1 each PO 3XW 09/14/17 [History] Amitriptyline [Elavil] 10 - 20 mg PO HS PRN 09/15/17 [History] BuPROPion XL (24 HR) [Wellbutrin XL] 150 mg PO BID 09/15/17 [History] FLUoxetine HCl [Prozac] 40 mg PO DAILY 09/15/17 [History] Folic Acid 1 mg PO DAILY 09/15/17 [History] Lidocaine Patch [Lidoderm 5% patch] 1 each TP DAILY 09/15/17 [History] Methotrexate [Otrexup] 10 mg PO QWEEK 09/15/17 [History] Mv,Fe,Min/Lutein [A Thru Z [employer] Women's Tablet] 1 tab PO DAILY 09/15/17 [ History] PredniSONE [Deltasone] 30 mg PO DAILY 09/15/17 [History] hydrOXYzine HCl [Hydroxyzine HCl] 25 mg PO BID 09/15/17 [History] 3 Allergy/AdvReac Type Severity Reaction Status Date / Time nitrofurantoin AdvReac Mild Rash Verified 08/28/17 11:18 [From Macrobid] Review of Systems All systems PM: A 10-system review of systems was performed and is negative for pertinent findings except as documented above in the HPI. General Surgery Exam Initial Vital Signs Temp Pulse Resp BP Pulse Ox 98.3 F 72 22 117/83 96 09/14/17 14:59 09/14/17 14:59 09/14/17 14:59 09/14/17 14:59 09/14/17 14:59 Exam Initial Vital Signs Temp Pulse Resp BP Pulse Ox 98.3 F 72 22 117/83 96 09/14/17 14:59 09/14/17 14:59 09/14/17 14:59 09/14/17 14:59 09/14/17 14:59 Results - Labs 09/15/17 00:51 09/15/17 00:51 Abnormal lab results WBC 18.2 K/mcL (4.3-11.1) H 09/15/17 00:51 RBC 5.36 M/mcL (3.82-4.97) H 09/15/17 00:51 Hct 46.7 % (35.3-44.9) H 09/15/17 00:51 MCH 27.2 pg (28.0-33.3) L 09/15/17 00:51 MCHC 31.3 g/dL (31.6-35.5) L 09/15/17 00:51 RDW 16.7 % (11.5-14.5) H 09/15/17 00:51 MPV 8.9 fL (9.4-12.4) L 09/15/17 00:51 Neutrophils # 13.9 K/mcL (1.6-8.9) H 09/15/17 00:51 Monocytes # 1.5 K/mcL (0.0-1.3) H 09/15/17 00:51 Nucleated RBCs/100 WBC 0.1 /100 WBC (0) H 09/14/17 16:24 ABG pH 7.50 pH Units (7.32-7.45) H 09/14/17 18:37 ABG pCO2 55 mmHg (35-45) H 09/14/17 18:37 ABG pO2 81 mmHg (85-104) L 09/14/17 18:37 ABG HCO3 43 mEq/L (21-27) H 09/14/17 18:37 ABG Total CO2 45 mEq/L (20-26) H 09/14/17 18:37 ABG Base Excess 17 mEq/L (-2 to 3) H 09/14/17 18:37 Sodium 147 mEq/L (136-145) H 09/15/17 00:51 Potassium 3.0 mEq/L (3.5-5.1) L 09/15/17 00:51 Chloride 90 mEq/L (98-107) L 09/15/17 00:51 Carbon Dioxide 32 mEq/L (23-29) H 09/15/17 00:51 BUN 40 mg/dL (6-20) H 09/15/17 00:51 Creatinine 1.72 mg/dL (0.60-1.20) H 09/15/17 00:51 Est GFR ( Amer) 38 (> 60) L 09/15/17 00:51 Est GFR (Non-Af Amer) 31 (> 60) L 09/15/17 00:51 Glucose 138 mg/dL (70-105) H 09/15/17 00:51 Calculated Osmolality 316 (280-300) H 09/15/17 00:51 Lactic Acid 2.5 mmol/L (0.5-2.2) H 09/15/17 02:38 Phosphorus 6.1 mg/dL (2.7-4.5) H 09/15/17 00:51 Troponin I 0.18 ng/mL (< 0.04) H* 09/15/17 00:51 Triglycerides 236 mg/dL (< 150) H 09/15/17 00:51 VLDL Cholesterol, Calc 47 mg/dL (< 31) H 09/15/17 00:51 HDL Cholesterol 68 mg/dL (40-59) H 09/15/17 00:51 Urine Clarity Cloudy (Clear) A 09/14/17 17:25 Urine Protein 100 mg/dL (Neg-Trace) H 09/14/17 17:25 Urine Microscopic RBC 5-15 per hpf (0-3) H 09/14/17 17:25 Ur Squamous Epith Cells Many per lpf (None-Few) H 09/14/17 17:25 Diabetes panel 09/15/17 Range/Units 00:51 Sodium 147 H (136-145) mEq/L Potassium 3.0 L (3.5-5.1) mEq/L Chloride 90 L (98-107) mEq/L Carbon Dioxide 32 H (23-29) mEq/L BUN 40 H (6-20) mg/dL Creatinine 1.72 H (0.60-1.20) mg/dL Glucose 138 H (70-105) mg/dL Calcium 9.7 (8.6-10.3) mg/dL AST 25 (13-39) Units/L ALT 43 (7-52) Units/L Alkaline Phosphatase 104 (34-104) Units/L Albumin 4.4 (3.5-5.7) g/dL Triglycerides 236 H (< 150) mg/dL HDL Cholesterol 68 H (40-59) mg/dL Calcium panel 09/15/17 Range/Units 00:51 Calcium 9.7 (8.6-10.3) mg/dL Phosphorus 6.1 H (2.7-4.5) mg/dL Albumin 4.4 (3.5-5.7) g/dL Pituitary panel 09/15/17 Range/Units 00:51 Sodium 147 H (136-145) mEq/L Potassium 3.0 L (3.5-5.1) mEq/L Chloride 90 L (98-107) mEq/L Carbon Dioxide 32 H (23-29) mEq/L BUN 40 H (6-20) mg/dL Creatinine 1.72 H (0.60-1.20) mg/dL Glucose 138 H (70-105) mg/dL Calcium 9.7 (8.6-10.3) mg/dL Adrenal panel 09/15/17 Range/Units 00:51 Sodium 147 H (136-145) mEq/L Potassium 3.0 L (3.5-5.1) mEq/L Chloride 90 L (98-107) mEq/L Carbon Dioxide 32 H (23-29) mEq/L BUN 40 H (6-20) mg/dL Creatinine 1.72 H (0.60-1.20) mg/dL Glucose 138 H (70-105) mg/dL Calcium 9.7 (8.6-10.3) mg/dL Total Bilirubin 1.0 (0.3-1.0) mg/dL AST 25 (13-39) Units/L ALT 43 (7-52) Units/L Alkaline Phosphatase 104 (34-104) Units/L Albumin 4.4 (3.5-5.7) g/dL All other labs normal. Consult Discharge Plan - Plan Referrals: Cole Bryant, JORGE [Primary Care Provider] -
[2017-09-15] MEDS: *HR* Heparin 5,000 UNIT/ML VIAL SQ SCH ×2 (16:00→21:39)
[2017-09-15] MEDS: *HR* Promethazine 25 MG/ML VIAL IVP PRN (16:07)
--- NOTE | 2017-09-15 16:35 | Electrocardiograph Report ---
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
[2017-09-15] MEDS ORDERED: Cefepime HCl 2,000 MG in D5% in Water (Mini-Bag+) 100 ML IVPB ONE (17:30)
--- NOTE | 2017-09-15 18:14 | Event Note ---
Date of Encounter: 09/15/17 Time of Encounter: 18:12 General Surgery - small bowel follow-through completed and reviewed with [facility]. Moderate amount of colonic stool was present, however, within 30 minutes of administration oral contrast the contrast was seen within the colon at the level of the splenic flexure. No evidence of small bowel obstruction. Patient informed of these findings Plan: Allow diet No surgical intervention anticipated; will sign off medical management as appropriate.
--- NOTE | 2017-09-15 18:39 | Electrocardiograph Report ---
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
[2017-09-16] MEDS: *HR* HYDROmorphone (PF) 1 MG/ML SYRINGE IVP PRN (03:14)
[2017-09-16] MEDS: D5% in 0.45% NACL w KCl 20 MEQ/1,000 ML MLS IVC SCH (03:16)
[2017-09-16] MEDS: Ipratropium/Albuterol Neb 3 ML IH SCH ×4 (04:19→21:37)
[2017-09-16] MEDS: *HR* Metoprolol 5 MG/5 ML VIAL IVP SCH (06:15)
[2017-09-16] MEDS: Piperacillin/Tazobactam 3.375 GM/200 ML BAG IVPB SCH ×3 (06:17→23:32)
[2017-09-16] MEDS: *HR* Heparin 5,000 UNIT/ML VIAL SQ SCH ×4 (06:18→22:55)
[2017-09-16 06:55] LABS: Basophils % 0.3 %; Eosinophils # 0.2 K/mcL (0.0-0.6); Eosinophils % 1.6 %; Hematocrit 39.3 % (35.3-44.9); Immature Granulocytes % 0.7 % (0-4); Lymphocytes # 2.2 K/mcL (0.6-4.6); Lymphocytes % 14.9 %; Mean Corpuscular HGB Conc 29.8 g/dL (31.6-35.5); Mean Corpuscular Hemoglobin 26.5 pg (28.0-33.3); Mean Corpuscular Volume 88.9 fL (83.0-100.0); Mean Platelet Volume 9.1 fL (9.4-12.4); Monocytes % 7.1 %; Platelet Count 232 K/mcL (140-400); Red Blood Count 4.42 M/mcL (3.82-4.97); Red Cell Distribution Width 16.5 % (11.5-14.5); Segmented Neutrophils % 75.4 %
[2017-09-16] MEDS ORDERED: Pantoprazole 40 MG VIAL IVP SCH (07:00)
[2017-09-16 07:07] LABS: Hemoglobin 11.7 g/dL (11.5-15.4)
--- NOTE | 2017-09-16 08:23 | Internal Med Progress Note ---
<Hiro Ledezma - Last Filed: 09/16/17 08:19> Date of Encounter: 09/16/17 Time of Encounter: 08:19 - Assessment and plan (1) Pneumonia Current Visit: Yes Status: Acute Assessment and plan: Patient reports improved shortness of breath, denies cough, denies sputum production. Currently on Zosyn, oxygen supplementation, DuoNeb's. Lung exam shows mild crackles in the left lower base otherwise clear. Leukocytosis improved. Afebrile Blood cultures negative for growth on zosyn and levaquin. Plan: discontinue Zosyn and continue levaquin, wean off oxygen, await final blood cultures. Continue use of incentive spirometry. Qualifiers: Pneumonia type: due to unspecified organism Laterality: bilateral Lung location: lower lobe of lung Qualified Code(s): J18.9 - Pneumonia, unspecified organism (2) Small bowel obstruction Current Visit: Yes Status: Ruled-out Assessment and plan: Patient had a small bowel follow-through. Negative for small bowel obstruction. Likely had severe constipation as CT abdomen/spell showed stool throughout the colon. Patient had a large bowel movement after small bowel follow-through. Denies abdominal pain, vomiting. Tolerating her clear liquids. We will advance diet as tolerated. (3) KELSIE (acute kidney injury) Current Visit: Yes Status: Acute Assessment and plan: Acute kidney injury - likely secondary to sepsis and volume depletion/ dehydration due to vomiting improving Continue IV fluids, repeat BMP in morning (4) Cardiomyopathy Current Visit: Yes Status: Chronic Assessment and plan: History of nonischemic cardiomyopathy - improved EF with IMPROVEMENT ADVISOR therapy S/p BiV AICD placement on Tuesday at [facility] Echocardiogram EF 55-60%, improved from revious. follow up outpatient with cardiology for monitoring. Qualifiers: Cardiomyopathy type: unspecified Qualified Code(s): I42.9 - Cardiomyopathy , unspecified (5) DVT prophylaxis Current Visit: Yes Status: Acute Assessment and plan: Heparin SQ (6) Elevated troponin Current Visit: Yes Status: Acute Assessment and plan: elevation 2nd to sepsis 2nd PNA in setting of KELSIE and hx of nonischemic cardiomyopathy Echocardiogram shows improved EF likely demand ischemia (7) HLD (hyperlipidemia) Current Visit: Yes Status: Chronic Assessment and plan: continue home lipitor Qualifiers: Hyperlipidemia type: unspecified Qualified Code(s): E78.5 - Hyperlipidemia , unspecified (8) HTN (hypertension) Current Visit: Yes Status: Chronic Assessment and plan: controlled continue metoprolol Qualifiers: Hypertension type: essential hypertension Qualified Code(s): I10 - Essential (primary) hypertension (9) Hypokalemia Current Visit: Yes Status: Acute Assessment and plan: replacing (10) Sarcoidosis Current Visit: Yes Status: Chronic Assessment and plan: Stable continue methotrexate. - Subjective Interval history: Patient reports having a full bowel movement after small bowel follow-through. She denies chest pain, shortness of breath, productive cough, abdominal pain, vomiting. She reports minimal nausea with food and is tolerating her clear liquid diet. - Constitutional Vitals: Temp Pulse Resp BP Pulse Ox 97.9 F 80 16 97/64 97 09/16/17 06:48 09/16/17 06:48 09/16/17 06:48 09/16/17 06:48 09/16/17 06:48 General appearance: Present: cooperative, A&O X 3, pleasant, no acute distress, obese, answers questions appropriately - Other Additional findings: General: Pleasant without distress Heart: Regular rate and rhythm with no murmur Lungs: Diminished. Mild crackles on the left base otherwise clear. Abdomen: Soft nontender, nondistended positive bowel sounds Skin: warm and dry Extremities: Absent pedal edema, Neuro: Alert oriented 3 Vascular: Pedal and radial pulses 2 out of 4 Internal Medicine: Result - Labs CBC & Chem 7: 09/16/17 06:43 09/15/17 00:51 Labs: Short CBC 09/16/17 Range/Units 06:43 WBC 14.6 H (4.3-11.1) K/mcL Hgb 11.7 D (11.5-15.4) g/dL Hct 39.3 (35.3-44.9) % Plt Count 232 (140-400) K/mcL Neutrophils # 11.0 H (1.6-8.9) K/mcL Cardiac Enzymes 09/16/17 Range/Units 06:43 Troponin I 0.06 H* (< 0.04) ng/mL - ABG Interpretation ABG results: ABG ABG pH 7.50 pH Units (7.32-7.45) H 09/14/17 18:37 ABG pCO2 55 mmHg (35-45) H 09/14/17 18:37 ABG pO2 81 mmHg (85-104) L 09/14/17 18:37 ABG O2 Saturation 97 % (95-98) 09/14/17 18:37 - Impressions Impressions Echocardiogram 09/15/17 00:29 Impressions: LVEF 55-60%. Normal LV chamber size, wall thickness and function. Mild left ventricular diastolic dysfunction. Atypical septal motion consistent with paced rhythm. Normal right ventricular structure and function. No evidence of pulmonary hypertension. No significant valvular dysfunction. A device lead was visualized in the right atrium and right ventricle. Left Ventricular Wall Motion: Rest Echo Findings All wall segments showed normal motion. Findings: Study Quality * Technically adequate exam. ECG Findings * Normal sinus rhythm. Left Ventricle * LVEF 55-60%. * Normal LV chamber size, wall thickness and function. * Mild left ventricular diastolic dysfunction. * Atypical septal motion consistent with paced rhythm. Right Ventricle * Normal right ventricular structure and function. Left Atrium * Mildly dilated left atrium. Right Atrium * Normal right atrial size. Interatrial Septum * Interatrial septum not well evaluated. Aortic Valve * Trileaflet aortic valve with normal function. * No aortic regurgitation. * No aortic stenosis. Mitral Valve * Normal mitral valve structure and function. * No mitral regurgitation. * No mitral stenosis. Tricuspid Valve * Normal tricuspid valve structure and function. * Trace tricuspid regurgitation. * No evidence of pulmonary hypertension. Pulmonic Valve * Normal pulmonic valve structure and function. * No pulmonic regurgitation. Aorta * Normally sized aortic root. Pericardium * There is a trivial pericardial effusion present. IVC * Normal IVC dimensions and inspiratory collapse. Pulmonary Artery * Normal visualized portions of the main pulmonary artery. Device lead * A device lead was visualized in the right atrium and right ventricle. Small Bowel X-Ray 09/15/17 13:25 IMPRESSION: No evidence of small bowel obstruction. Relatively brisk transit of contrast into the colon, as detailed above. D/ / Jefry Dior MD / Jefry Dior MD Interpreting Provider: Jefry Dior MD Consult Discharge Plan - Plan Instructions: Pacemaker (DC), Acute Kidney Injury (DC), Sepsis (DC) Referrals: Cole Bryant [facility] [Primary Care Provider] - <JaegerSra Rambovan - Last Filed: 09/16/17 10:52> Date of Encounter: 09/16/17 - Assessment and plan (1) Small bowel obstruction Current Visit: Yes Status: Ruled-out (2) Pneumonia Current Visit: Yes Status: Acute Qualifiers: Pneumonia type: due to unspecified organism Laterality: bilateral Lung location: lower lobe of lung Qualified Code(s): J18.9 - Pneumonia, unspecified organism (3) KELSIE (acute kidney injury) Current Visit: Yes Status: Acute (4) Elevated troponin Current Visit: Yes Status: Acute (5) Cardiomyopathy Current Visit: Yes Status: Chronic Qualifiers: Cardiomyopathy type: unspecified Qualified Code(s): I42.9 - Cardiomyopathy , unspecified (6) Hypokalemia Current Visit: Yes Status: Acute (7) Sarcoidosis Current Visit: Yes Status: Chronic (8) HTN (hypertension) Current Visit: Yes Status: Chronic Qualifiers: Hypertension type: essential hypertension Qualified Code(s): I10 - Essential (primary) hypertension (9) HLD (hyperlipidemia) Current Visit: Yes Status: Chronic Qualifiers: Hyperlipidemia type: unspecified Qualified Code(s): E78.5 - Hyperlipidemia , unspecified (10) DVT prophylaxis Current Visit: Yes Status: Acute - Constitutional Vitals: Temp Pulse Resp BP Pulse Ox 97.8 F 90 17 114/59 95 09/16/17 10:41 09/16/17 10:41 09/16/17 10:41 09/16/17 10:41 09/16/17 10:41 Internal Medicine: Result - Labs CBC & Chem 7: 09/16/17 06:43 09/16/17 06:43 Labs: Short CBC 09/16/17 Range/Units 06:43 WBC 14.6 H (4.3-11.1) K/mcL Hgb 11.7 D (11.5-15.4) g/dL Hct 39.3 (35.3-44.9) % Plt Count 232 (140-400) K/mcL Neutrophils # 11.0 H (1.6-8.9) K/mcL BMP 09/16/17 06:43 Sodium 137 Potassium 4.0 Chloride 100 Carbon Dioxide 32 H BUN 21 H Creatinine 0.97 Glucose 118 H Calcium 8.7 Cardiac Enzymes 09/16/17 Range/Units 06:43 Troponin I 0.06 H* (< 0.04) ng/mL Liver Function 09/16/17 Range/Units 06:43 Total Bilirubin 0.8 (0.3-1.0) mg/dL AST 49 H (13-39) Units/L ALT 52 (7-52) Units/L Alkaline Phosphatase 83 (34-104) Units/L Albumin 3.5 (3.5-5.7) g/dL - ABG Interpretation ABG results: ABG ABG pH 7.50 pH Units (7.32-7.45) H 09/14/17 18:37 ABG pCO2 55 mmHg (35-45) H 09/14/17 18:37 ABG pO2 81 mmHg (85-104) L 09/14/17 18:37 ABG O2 Saturation 97 % (95-98) 09/14/17 18:37 - Impressions Impressions Echocardiogram 09/15/17 00:29 Impressions: LVEF 55-60%. Normal LV chamber size, wall thickness and function. Mild left ventricular diastolic dysfunction. Atypical septal motion consistent with paced rhythm. Normal right ventricular structure and function. No evidence of pulmonary hypertension. No significant valvular dysfunction. A device lead was visualized in the right atrium and right ventricle. Left Ventricular Wall Motion: Rest Echo Findings All wall segments showed normal motion. Findings: Study Quality * Technically adequate exam. ECG Findings * Normal sinus rhythm. Left Ventricle * LVEF 55-60%. * Normal LV chamber size, wall thickness and function. * Mild left ventricular diastolic dysfunction. * Atypical septal motion consistent with paced rhythm. Right Ventricle * Normal right ventricular structure and function. Left Atrium * Mildly dilated left atrium. Right Atrium * Normal right atrial size. Interatrial Septum * Interatrial septum not well evaluated. Aortic Valve * Trileaflet aortic valve with normal function. * No aortic regurgitation. * No aortic stenosis. Mitral Valve * Normal mitral valve structure and function. * No mitral regurgitation. * No mitral stenosis. Tricuspid Valve * Normal tricuspid valve structure and function. * Trace tricuspid regurgitation. * No evidence of pulmonary hypertension. Pulmonic Valve * Normal pulmonic valve structure and function. * No pulmonic regurgitation. Aorta * Normally sized aortic root. Pericardium * There is a trivial pericardial effusion present. IVC * Normal IVC dimensions and inspiratory collapse. Pulmonary Artery * Normal visualized portions of the main pulmonary artery. Device lead * A device lead was visualized in the right atrium and right ventricle. Small Bowel X-Ray 09/15/17 13:25 IMPRESSION: No evidence of small bowel obstruction. Relatively brisk transit of contrast into the colon, as detailed above. D/ / Jefry Dior MD / Jefry Dior MD Interpreting Provider: Jefry Dior MD - Attending Attestation I examined this patient and my medical decision-making was reviewed with the Resident Physician. I agree with the documented findings, disposition and treatment plan as described except to the extent set forth below. I have seen and examined the patient. Patient is awake and alert. Not in any distress. Denies chest pain or shortness of breath. States her abdominal pain has improved. Tolerating oral diet well. States she did have a bowel movement. No new events or complaints. Lungs: Good air entry with mild crackles in the left base, otherwise clear. Abdomen soft nontender and nondistended.
[2017-09-16 08:43] LABS: Alanine Aminotransferase 52 Units/L (7-52); Albumin 3.5 g/dL (3.5-5.7); Albumin/Globulin Ratio 1.2 (1.1-2.2); Alkaline Phosphatase 83 Units/L (34-104); Aspartate Amino Transferase 49 Units/L (13-39); BUN/Creatinine Ratio 22 (6-26); Bilirubin,Total 0.8 mg/dL (0.3-1.0); Blood Urea Nitrogen 21 mg/dL (6-20); Calcium 8.7 mg/dL (8.6-10.3); Carbon Dioxide 32 mEq/L (23-29); Chloride 100 mEq/L (98-107); Globulin 2.9 g/dL (2.4-3.5); Sodium 137 mEq/L (136-145); Total Protein 6.4 g/dL (6.4-8.9); eGFR For African Americans > 60 (> 60); eGFR For Non-African Americans > 60 (> 60)
[2017-09-16] MEDS ORDERED: FLUoxetine 20 MG CAPSULE PO SCH (09:00)
[2017-09-16 09:42] LABS: Glucose 118 mg/dL (70-105); Osmolality,Calculated 288 (280-300)
[2017-09-16] MEDS ORDERED: Acetaminophen 325 MG TABLET PO PRN (09:57)
[2017-09-16] MEDS: Aspirin 81 MG TAB.CHEW PO SCH (10:17)
[2017-09-16] MEDS: Gabapentin 300 MG CAPSULE PO SCH ×3 (10:17→19:47)
[2017-09-16] MEDS: BuPROPion XL (24 HR) 150 MG TABLET PO SCH ×2 (10:18→19:47)
[2017-09-16] MEDS ORDERED: D5% in 0.45% NACL w KCl 20 MEQ/1,000 ML MLS IVC SCH (10:35)
[2017-09-16] MEDS: Metoprolol XL (24 HR) Succ 25 MG TAB.ER.24H PO SCH (13:09)
[2017-09-16] MEDS: rOPINIRole 1 MG TABLET PO SCH (19:47)
[2017-09-16] MEDS: *HR* Promethazine 25 MG/ML VIAL IVP PRN (22:14)
[2017-09-16] MEDS: Levofloxacin 750 MG/150 ML 750 MG/150 ML BAG IVPB SCH (22:15)
[2017-09-17 03:22] LABS: Basophils % 0.3 %; Eosinophils # 0.2 K/mcL (0.0-0.6); Eosinophils % 1.9 %; Hematocrit 33.4 % (35.3-44.9); Hemoglobin 10.5 g/dL (11.5-15.4); Immature Granulocytes % 0.5 % (0-4); Lymphocytes # 1.8 K/mcL (0.6-4.6); Lymphocytes % 14.7 %; Mean Corpuscular HGB Conc 31.4 g/dL (31.6-35.5); Mean Corpuscular Hemoglobin 27.2 pg (28.0-33.3); Mean Corpuscular Volume 86.5 fL (83.0-100.0); Mean Platelet Volume 9.3 fL (9.4-12.4); Monocytes # 0.8 K/mcL (0.0-1.3); Monocytes % 6.7 %; Platelet Count 198 K/mcL (140-400); Red Blood Count 3.86 M/mcL (3.82-4.97); Red Cell Distribution Width 16.4 % (11.5-14.5); Segmented Neutrophils % 75.9 %
[2017-09-17] MEDS: *HR* Promethazine 25 MG/ML VIAL IVP PRN ×2 (03:23→22:07)
[2017-09-17] MEDS: Ipratropium/Albuterol Neb 3 ML IH SCH ×3 (03:37→16:02)
[2017-09-17] MEDS: *HR* Heparin 5,000 UNIT/ML VIAL SQ SCH ×3 (06:26→20:09)
[2017-09-17] MEDS: Piperacillin/Tazobactam 3.375 GM/200 ML BAG IVPB SCH (06:28)
[2017-09-17 06:39] LABS: Alanine Aminotransferase 51 Units/L (7-52); Albumin 3.2 g/dL (3.5-5.7); Albumin/Globulin Ratio 1.1 (1.1-2.2); Alkaline Phosphatase 82 Units/L (34-104); Aspartate Amino Transferase 41 Units/L (13-39); BUN/Creatinine Ratio 18 (6-26); Bilirubin,Total 0.6 mg/dL (0.3-1.0); Blood Urea Nitrogen 15 mg/dL (6-20); Calcium 8.3 mg/dL (8.6-10.3); Carbon Dioxide 24 mEq/L (23-29); Chloride 105 mEq/L (98-107); Globulin 2.8 g/dL (2.4-3.5); Glucose 128 mg/dL (70-105); Osmolality,Calculated 290 (280-300); Potassium 3.4 mEq/L (3.5-5.1); Sodium 139 mEq/L (136-145); eGFR For African Americans > 60 (> 60); eGFR For Non-African Americans > 60 (> 60)
[2017-09-17] MEDS ORDERED: MOM Conc 10 ML UD.LIQ PO ONE (08:56)
[2017-09-17] MEDS: Gabapentin 300 MG CAPSULE PO SCH ×3 (09:39→20:10)
[2017-09-17] MEDS: Aspirin 81 MG TAB.CHEW PO SCH (09:39)
[2017-09-17] MEDS: BuPROPion XL (24 HR) 150 MG TABLET PO SCH ×2 (09:40→20:09)
[2017-09-17] MEDS: Metoprolol XL (24 HR) Succ 25 MG TAB.ER.24H PO SCH (09:40)
--- NOTE | 2017-09-17 10:28 | Internal Med Progress Note ---
<Hiro Ledezma - Last Filed: 09/17/17 10:30> Date of Encounter: 09/17/17 Time of Encounter: 10:25 - Assessment and plan (1) Pneumonia Current Visit: Yes Status: Acute Assessment and plan: Patient reports improved shortness of breath, denies cough, denies sputum production. Currently on Zosyn, oxygen supplementation, DuoNeb's. Lung exam clear Leukocytosis imprvoing. afebrile Blood cultures negative for growth on zosyn and levaquin. weaned off O2 Plan: discontinue Zosyn and continue levaquin, await final blood cultures. Continue use of incentive spirometry. Qualifiers: Pneumonia type: due to unspecified organism Laterality: bilateral Lung location: lower lobe of lung Qualified Code(s): J18.9 - Pneumonia, unspecified organism (2) Small bowel obstruction Current Visit: Yes Status: Ruled-out Assessment and plan: Patient had a small bowel follow-through. Negative for small bowel obstruction. Likely had severe constipation as CT abdomen/spell showed stool throughout the colon. Patient had a large bowel movement after small bowel follow-through but feels nauseated and constipated today. Will give patient milk of magnesia. continue regular diet. (3) KELSIE (acute kidney injury) Current Visit: Yes Status: Acute Assessment and plan: Acute kidney injury - likely secondary to sepsis and volume depletion/ dehydration due to vomiting resolved. 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 follow up outpatient with cardiology for monitoring. Qualifiers: Cardiomyopathy type: unspecified Qualified Code(s): I42.9 - Cardiomyopathy , unspecified (5) DVT prophylaxis Current Visit: Yes Status: Acute Assessment and plan: Heparin SQ (6) Elevated troponin Current Visit: Yes Status: Acute Assessment and plan: elevation 2nd to sepsis 2nd PNA in setting of KELSIE and hx of nonischemic cardiomyopathy Echocardiogram shows improved EF likely demand ischemia denies chest pain. (7) HLD (hyperlipidemia) Current Visit: Yes Status: Chronic Assessment and plan: continue home lipitor Qualifiers: Hyperlipidemia type: unspecified Qualified Code(s): E78.5 - Hyperlipidemia , unspecified (8) HTN (hypertension) Current Visit: Yes Status: Chronic Assessment and plan: controlled continue metoprolol Qualifiers: Hypertension type: essential hypertension Qualified Code(s): I10 - Essential (primary) hypertension (9) Hypokalemia Current Visit: Yes Status: Resolved Assessment and plan: resolved. (10) Sarcoidosis Current Visit: Yes Status: Chronic Assessment and plan: Stable continue methotrexate. - Subjective Interval history: Reports return of nausea which worsens with food. No additional BM in last 24 hours. She denies chest pain, shortness of breath, productive cough, abdominal pain, vomiting. - Constitutional Vitals: Temp Pulse Resp BP Pulse Ox 98.0 F 90 16 114/77 100 09/17/17 08:58 09/17/17 08:58 09/17/17 08:58 09/17/17 08:58 09/17/17 08:58 General appearance: Present: cooperative, A&O X 3, pleasant, no acute distress, obese, answers questions appropriately - Other Additional findings: General: Pleasant without distress Heart: Regular rate and rhythm with no murmur Lungs: Clear to auscultation bilaterally Abdomen: Soft nontender, nondistended positive bowel sounds Skin: warm and dry Extremities: Absent pedal edema, Neuro: Alert and oriented 3 Vascular: Pedal and radial pulses 2 out of 4 Internal Medicine: Result - Labs CBC & Chem 7: 09/17/17 02:27 09/17/17 04:22 Labs: Short CBC 09/17/17 Range/Units 02:27 WBC 11.9 H (4.3-11.1) K/mcL Hgb 10.5 L (11.5-15.4) g/dL Hct 33.4 L (35.3-44.9) % Plt Count 198 (140-400) K/mcL Neutrophils # 9.0 H (1.6-8.9) K/mcL BMP 09/17/17 04:22 Sodium 139 Potassium 3.4 L Chloride 105 Carbon Dioxide 24 BUN 15 Creatinine 0.82 Glucose 128 H Calcium 8.3 L Liver Function 09/17/17 Range/Units 04:22 Total Bilirubin 0.6 (0.3-1.0) mg/dL AST 41 H (13-39) Units/L ALT 51 (7-52) Units/L Alkaline Phosphatase 82 (34-104) Units/L Albumin 3.2 L (3.5-5.7) g/dL - ABG Interpretation ABG results: ABG ABG pH 7.50 pH Units (7.32-7.45) H 09/14/17 18:37 ABG pCO2 55 mmHg (35-45) H 09/14/17 18:37 ABG pO2 81 mmHg (85-104) L 09/14/17 18:37 ABG O2 Saturation 97 % (95-98) 09/14/17 18:37 - VTE Documentation of Mechanical Device: Intermittent pneumatic compression device Consult Discharge Plan - Plan Instructions: Pacemaker (DC), Acute Kidney Injury (DC), Sepsis (DC) Referrals: Cole Bryant [facility] [Primary Care Provider] - <Jose Alberto Clark - Last Filed: 09/17/17 13:17> Date of Encounter: 09/17/17 - Assessment and plan (1) Small bowel obstruction Current Visit: Yes Status: Ruled-out (2) Pneumonia Current Visit: Yes Status: Acute Qualifiers: Pneumonia type: due to unspecified organism Laterality: bilateral Lung location: lower lobe of lung Qualified Code(s): J18.9 - Pneumonia, unspecified organism (3) KELSIE (acute kidney injury) Current Visit: Yes Status: Acute (4) Elevated troponin Current Visit: Yes Status: Acute (5) Cardiomyopathy Current Visit: Yes Status: Chronic Qualifiers: Cardiomyopathy type: unspecified Qualified Code(s): I42.9 - Cardiomyopathy , unspecified (6) Hypokalemia Current Visit: Yes Status: Resolved (7) Sarcoidosis Current Visit: Yes Status: Chronic (8) HTN (hypertension) Current Visit: Yes Status: Chronic Qualifiers: Hypertension type: essential hypertension Qualified Code(s): I10 - Essential (primary) hypertension (9) HLD (hyperlipidemia) Current Visit: Yes Status: Chronic Qualifiers: Hyperlipidemia type: unspecified Qualified Code(s): E78.5 - Hyperlipidemia , unspecified (10) DVT prophylaxis Current Visit: Yes Status: Acute - Constitutional Vitals: Temp Pulse Resp BP Pulse Ox 98.0 F 90 16 114/77 100 09/17/17 08:58 09/17/17 08:58 09/17/17 10:40 09/17/17 08:58 09/17/17 10:40 Internal Medicine: Result - Labs CBC & Chem 7: 09/17/17 02:27 09/17/17 04:22 Labs: Short CBC 09/17/17 Range/Units 02:27 WBC 11.9 H (4.3-11.1) K/mcL Hgb 10.5 L (11.5-15.4) g/dL Hct 33.4 L (35.3-44.9) % Plt Count 198 (140-400) K/mcL Neutrophils # 9.0 H (1.6-8.9) K/mcL BMP 09/17/17 04:22 Sodium 139 Potassium 3.4 L Chloride 105 Carbon Dioxide 24 BUN 15 Creatinine 0.82 Glucose 128 H Calcium 8.3 L Liver Function 09/17/17 Range/Units 04:22 Total Bilirubin 0.6 (0.3-1.0) mg/dL AST 41 H (13-39) Units/L ALT 51 (7-52) Units/L Alkaline Phosphatase 82 (34-104) Units/L Albumin 3.2 L (3.5-5.7) g/dL - ABG Interpretation ABG results: ABG ABG pH 7.50 pH Units (7.32-7.45) H 09/14/17 18:37 ABG pCO2 55 mmHg (35-45) H 09/14/17 18:37 ABG pO2 81 mmHg (85-104) L 09/14/17 18:37 ABG O2 Saturation 97 % (95-98) 09/14/17 18:37 - Attending Attestation I examined this patient and my medical decision-making was reviewed with the Resident Physician. I agree with the documented findings, disposition and treatment plan as described except to the extent set forth below. I have seen and examined the patient. Patient is awake and alert. Not in any distress. Denies chest pain or shortness of breath. Complaints of nausea which is worse with food intake. No other acute events or complaints. Hemodynamically stable. No fever. Tolerating oral diet. At this time we will continue IV Levaquin for pneumonia and continue DuoNeb breathing treatment. Patient's leukocytosis is improving. Plan is to ambulate patient today. Heart S1-S2 positive. Lungs: Good air entry no wheezes or crackles. Abdomen : soft, nontender no masses or guarding. Extremities - all pulses strong and regular, mild bilateral lower leg edema.
[2017-09-17] MEDS ORDERED: Ipratropium/Albuterol Neb 3 ML IH PRN (16:02)
[2017-09-17] MEDS: rOPINIRole 1 MG TABLET PO SCH (20:10)
[2017-09-17] MEDS ORDERED: Melatonin 3 MG TABLET PO ONE (20:50)
[2017-09-18] MEDS: *HR* Heparin 5,000 UNIT/ML VIAL SQ SCH (03:41)
[2017-09-18 03:58] LABS: Basophils % 0.2 %; Eosinophils # 0.2 K/mcL (0.0-0.6); Eosinophils % 2.7 %; Hematocrit 34.8 % (35.3-44.9); Hemoglobin 10.9 g/dL (11.5-15.4); Lymphocytes % 22.9 %; Mean Corpuscular HGB Conc 31.3 g/dL (31.6-35.5); Mean Corpuscular Volume 86.4 fL (83.0-100.0); Mean Platelet Volume 9.4 fL (9.4-12.4); Monocytes # 0.7 K/mcL (0.0-1.3); Monocytes % 8.3 %; Neutrophils # 5.7 K/mcL (1.6-8.9); Platelet Count 187 K/mcL (140-400); Red Blood Count 4.03 M/mcL (3.82-4.97); Red Cell Distribution Width 16.3 % (11.5-14.5); Segmented Neutrophils % 64.9 %
[2017-09-18 04:08] VITALS: BP 123/79
[2017-09-18 04:13] LABS: Alanine Aminotransferase 45 Units/L (7-52); Albumin 3.4 g/dL (3.5-5.7); Albumin/Globulin Ratio 1.3 (1.1-2.2); Alkaline Phosphatase 81 Units/L (34-104); Aspartate Amino Transferase 27 Units/L (13-39); BUN/Creatinine Ratio 14 (6-26); Bilirubin,Total 0.4 mg/dL (0.3-1.0); Blood Urea Nitrogen 10 mg/dL (6-20); Calcium 8.4 mg/dL (8.6-10.3); Carbon Dioxide 25 mEq/L (23-29); Chloride 107 mEq/L (98-107); Globulin 2.7 g/dL (2.4-3.5); Glucose 106 mg/dL (70-105); Osmolality,Calculated 285 (280-300); Potassium 3.7 mEq/L (3.5-5.1); Sodium 138 mEq/L (136-145); Total Protein 6.1 g/dL (6.4-8.9); eGFR For African Americans > 60 (> 60); eGFR For Non-African Americans > 60 (> 60)
--- NOTE | 2017-09-18 09:43 | Discharge Summary ---
<Hiro Ledezma - Last Filed: 09/18/17 09:40> Date of Encounter: 09/18/17 Time of Encounter: 09:41 - Discharge Diagnosis (1) Pneumonia Priority: Primary Status: Acute Comments: CAP does not require O2. needs one more day of PO antibiotics sent home with levaquin 500mg Daily x 1 dose. Qualifiers: Pneumonia type: due to unspecified organism Laterality: bilateral Lung location: lower lobe of lung Qualified Code(s): J18.9 - Pneumonia, unspecified organism (2) Hypokalemia Priority: Secondary Status: Resolved Comments: resolved. (3) Small bowel obstruction Priority: Secondary Status: Ruled-out Comments: sbo ruled out had small bowel follow through that showed contrast transition all the way to rectum. patient constipated. Had BM after small bowel follow through. (4) KELSIE (acute kidney injury) Priority: Secondary Status: Acute Comments: resolved. (5) Cardiomyopathy Priority: Secondary Status: Chronic Comments: follow up with [facility] cardiology Qualifiers: Cardiomyopathy type: unspecified Qualified Code(s): I42.9 - Cardiomyopathy , unspecified (6) DVT prophylaxis Priority: Secondary Status: Acute (7) Elevated troponin Priority: Secondary Status: Acute (8) HLD (hyperlipidemia) Priority: Secondary Status: Chronic Qualifiers: Hyperlipidemia type: unspecified Qualified Code(s): E78.5 - Hyperlipidemia , unspecified (9) HTN (hypertension) Priority: Secondary Status: Chronic Qualifiers: Hypertension type: essential hypertension Qualified Code(s): I10 - Essential (primary) hypertension (10) Sarcoidosis Priority: Secondary Status: Chronic - Discharge Medications Prescriptions: Ipratropium/Albuterol Neb [Duoneb] 3 ml IH [id number] PRN 30 Days #10 inhsol PRN Reason: wheezing Promethazine [Phenergan] 12.5 mg PO Q6HR PRN #30 tablet PRN Reason: Nausea Levofloxacin [Levaquin] 500 mg PO DAILY #1 tablet MOM Conc [Milk of Magnesia Conc] 10 ml PO DAILY PRN #30 mls PRN Reason: Constipation Nebulizer [Aeroeclipse] 1 each MC PRN PRN #1 each PRN Reason: Wheezing Home Medications: Aspirin 81 mg PO DAILY 05/09/15 [History] Atorvastatin [Lipitor] 10 mg PO HS 05/09/15 [History] Furosemide [Lasix] 20 mg PO DAILY 05/09/15 [History] Metoprolol XL (24 HR) Succ [Toprol XL] 25 mg PO HS 05/09/15 [History] Ropinirole HCl [Requip] 2 mg PO HS 02/01/16 [History] Diclofenac Sodium [Voltaren] 75 mg PO BID PRN 01/14/17 [History] Fluticasone Propionate [Flovent Hfa] 2 puff IH BID PRN 07/08/17 [History] Gabapentin [Neurontin] 600 mg PO TID 07/08/17 [History] Melatonin [Melatin] 9 mg PO HS 07/08/17 [History] Omeprazole [PriLOSEC] 40 mg PO DAILY 07/08/17 [History] Potassium Chloride [K-Tab ER] 20 meq PO Q48H 07/08/17 [History] Amitriptyline [Elavil] 10 - 20 mg PO HS PRN 09/15/17 [History] BuPROPion XL (24 HR) [Wellbutrin Xl] 150 mg PO BID 09/15/17 [History] FLUoxetine HCl [Prozac] 40 mg PO DAILY 09/15/17 [History] Folic Acid 1 mg PO DAILY 09/15/17 [History] Lidocaine Patch [Lidoderm 5% patch] 1 each TP DAILY 09/15/17 [History] Methotrexate [Otrexup] 10 mg PO QWEEK 09/15/17 [History] Mv,Fe,Min/Lutein [A Thru Z Select Women's Tablet] 1 tab PO DAILY 09/15/17 [ History] PredniSONE [Deltasone] 30 mg PO DAILY 09/15/17 [History] hydrOXYzine HCl [Hydroxyzine HCl] 25 mg PO BID 09/15/17 [History] Ipratropium/Albuterol Neb [Duoneb] 3 ml IH [id number] PRN 30 Days #10 inhsol [Rx] Levofloxacin [Levaquin] 500 mg PO DAILY #1 tablet 09/18/17 [Rx] MOM Conc [Milk of Magnesia Conc] 10 ml PO DAILY PRN #30 mls 09/18/17 [Rx] Nebulizer [Aeroeclipse] 1 each MC PRN PRN #1 each 09/18/17 [Rx] Promethazine [Phenergan] 12.5 mg PO Q6HR PRN #30 tablet 09/18/17 [Rx] Allergies/Adverse Reactions: 3 Allergy/AdvReac Type Severity Reaction Status Date / Time nitrofurantoin AdvReac Mild Rash Verified 08/28/17 11:18 [From Macrobid] Procedures/tests Complete & Pending: Procedures Performed prior 72 hours Category Date Time Status ECG 12 lead ECG [ECG] Routine Y 09/15/17 10:54 Completed Date of admission: 09/14/17 19:54 Primary care physician: Cole Bryant CNP Consults: 09/14/17 21:56 Consult to Surgery [CONS] Routine Consulting Provider: Surgery Rapelje Surg - [facility] Reason for Consult: Patient being admitted for nausea and vomiting for the past two days is being admitted for multifocal pneumonia in bilateral lung bases. Small bowel obstruction noted in CT of the abdomen/pelvis without contrast today and shows there is a moderate gastric distention with moderate dilatation of multiple proximal small bowel loops to the level of the lower midabdomen whereby a transition point is noted. There is a small bowel feces sign within the small bowel loops just proximal to the transition point. This is consistent with small bowel obstruction likely secondary to an intra- abdominal adhesion. No obstructing mass lesion is identified. Small bowel distal to the transition point is collapsed. Colon is unremarkable. Appendix is normal. Pt. reports BM day before yesterday that was formed and she was passing gas as of yesterday. NG tube in place which is producing copious amounts of dark green output. Pt. reports colonoscopy performed several years ago in [place]. Upper endoscopy performed on 09/30/16 showed normal esophagus, stomach, and normal examined duodenum. No specimens collected. Call Completed: Yes 09/15/17 00:10 Consult to Wound Care [CONS] Routine Reason for Consult: Patient had AICD replaced on Tuesday. Please assess incision and recommend daily wound care regimen. Call Completed: No 09/15/17 10:53 Consult to Cardiology [CONS] Routine Comment: Consulting Provider: Cardiology Rachel Reason for Consult: elevated troponin, recent AICD placement Call Completed: Yes Discharging clinician: Hiro Ledezma Anticipated date of discharge: 09/18/17 - Patient Status Disposition: Home, Self-Care Condition: Fair Functional capacity at discharge: independent ambulation Overall status at discharge: patient is progressing back to baseline - Discharge Instructions Instructions: Pacemaker (DC), Acute Kidney Injury (DC), Sepsis (DC) Follow Up With: Cole Bryant CNP [Primary Care Provider] - - Diet and Activity Activity: increase activity as tolerated Diet: low fat, low cholesterol, low salt diet Hospital course: Ms. Lazo is a 52 year old female presented with chief complaint of abdominal pain, nausea, projectile vomiting. Patient had recent AICD replacement at [facility] Tuesday before admission and began having nausea vomiting thereafter. Patient describes the pain as cramping, epigastric. She was not able to keep food down. Patient had a CT of abdomen/pelvis done which initially was read as small bowel obstruction. Surgery was consulted and an NG tube was placed. Surgery went over CT of abdomen with radiology and reported that patient has small bowel obstruction. Small bowel follow-through was ordered and showed no evidence of small bowel obstruction. Patient had severe constipation. After small bowel follow-through patient had bowel movement. She was also given Milk of Magnesia to improve her symptoms. Patient's diet was advanced from clear liquids to regular she was able to tolerate it. She was also started on IV fluids. She had sepsis 2nd to pneumonia. Lung zaidi on CT of abdomen/pelvis showed acute multifocal pneumonia and patient was started on IV antibiotics, DuoNeb's, supplemental oxygen. Patient was weaned on oxygen and was able to ambulate independently without shortness of breath. IV antibiotics were transitioned to by mouth. Patient has a history of nonischemic cardiomyopathy and had elevated troponins on exam. Cardiology was consulted and echocardiogram was ordered. Echocardiogram showed improved ejection fraction of 55%. Allergic component secondary to twin ischemia. Patient had acute elevation of serum creatinine secondary to sepsis, dehydration which was treated with IV fluids. His potassium was also replaced due to hypokalemia. Patient is tolerating diet today, independently ambulating. She will be discharged with nebulizer machine, Levaquin, milk of magnesia. - Time Spent with Patient Total time spent providing and/or coordinating discharge services: - Constitutional Vitals: Temp Pulse Resp BP Pulse Ox 98.6 F 91 16 123/79 93 09/18/17 04:06 09/18/17 04:06 09/18/17 04:06 09/18/17 04:06 09/18/17 04:06 General appearance: Present: cooperative, A&O X 3, pleasant, no acute distress, obese, answers questions appropriately - Other Additional findings: General: pleasant without distress HEENT: Head atraumatic, normocephalic, EOMI, PERRL, Moist Mucous Membranes, Heart: Regular rate and rhythm with no murmur Lungs: Clear to auscultation bilaterally Abdomen: Soft nontender, nondistended positive bowel sounds Skin: warm and dry Extremities: Absent pedal edema Neuro: Cranial nerves II through XII intact, UE and LE sensation equal bilaterally, UE and LEstrength 5/5, alert oriented 3 Vascular: Pedal and radial pulses 2 out of 4 - VTE Documentation of Mechanical Device: Intermittent pneumatic compression device <Jose Alberto Clark - Last Filed: 09/18/17 11:57> Date of Encounter: 09/18/17 - Discharge Diagnosis (1) Small bowel obstruction Status: Ruled-out (2) Pneumonia Status: Acute Qualifiers: Pneumonia type: due to unspecified organism Laterality: bilateral Lung location: lower lobe of lung Qualified Code(s): J18.9 - Pneumonia, unspecified organism (3) KELSIE (acute kidney injury) Status: Acute (4) Elevated troponin Status: Acute (5) Cardiomyopathy Status: Chronic Qualifiers: Cardiomyopathy type: unspecified Qualified Code(s): I42.9 - Cardiomyopathy , unspecified (6) Hypokalemia Status: Resolved (7) Sarcoidosis Status: Chronic (8) HTN (hypertension) Status: Chronic Qualifiers: Hypertension type: essential hypertension Qualified Code(s): I10 - Essential (primary) hypertension (9) HLD (hyperlipidemia) Status: Chronic Qualifiers: Hyperlipidemia type: unspecified Qualified Code(s): E78.5 - Hyperlipidemia , unspecified (10) DVT prophylaxis Status: Acute Date of admission: 09/14/17 19:54 Primary care physician: Cole Bryant CNP Consults: 09/14/17 21:56 Consult to Surgery [CONS] Routine Consulting Provider: Surgery Germain Surg - [facility] Reason for Consult: Patient being admitted for nausea and vomiting for the past two days is being admitted for multifocal pneumonia in bilateral lung bases. Small bowel obstruction noted in CT of the abdomen/pelvis without contrast today and shows there is a moderate gastric distention with moderate dilatation of multiple proximal small bowel loops to the level of the lower midabdomen whereby a transition point is noted. There is a small bowel feces sign within the small bowel loops just proximal to the transition point. This is consistent with small bowel obstruction likely secondary to an intra- abdominal adhesion. No obstructing mass lesion is identified. Small bowel distal to the transition point is collapsed. Colon is unremarkable. Appendix is normal. Pt. reports BM day before yesterday that was formed and she was passing gas as of yesterday. NG tube in place which is producing copious amounts of dark green output. Pt. reports colonoscopy performed several years ago in [place]. Upper endoscopy performed on 09/30/16 showed normal esophagus, stomach, and normal examined duodenum. No specimens collected. Call Completed: Yes 09/15/17 00:10 Consult to Wound Care [CONS] Routine Reason for Consult: Patient had AICD replaced on Tuesday. Please assess incision and recommend daily wound care regimen. Call Completed: No 09/15/17 10:53 Consult to Cardiology [CONS] Routine Comment: Consulting Provider: Cardiology Schurz Reason for Consult: elevated troponin, recent AICD placement Call Completed: Yes Hospital course: Ms. Lazo is a 52 year old female - Time Spent with Patient Total time spent providing and/or coordinating discharge services: - Constitutional Vitals: Temp Pulse Resp BP Pulse Ox 98.6 F 91 16 123/79 93 09/18/17 04:06 09/18/17 04:06 09/18/17 04:06 09/18/17 04:06 09/18/17 04:06 - Attending Attestation I examined this patient and my medical decision-making was reviewed with the Resident Physician. I agree with the documented findings, disposition and treatment plan as described except to the extent set forth below. I have seen and examined the patient. Patient is awake and alert. Not in any distress. Denies chest pain or shortness of breath. Denies abdominal pain or vomiting. Tolerating oral diet well. States she feels better and wants to go home today. No acute events or complaints. She does state for discharge today. Being discharged with DuoNeb breathing treatment and Levaquin. Advised follow-up with PCP. Return if symptoms worsen. Heart S1-S2 positive. Lungs - bilateral good air entry no wheezing or crackles. Abdomen - soft nontender. Extremities - mild edema bilateral lower legs.
[2017-09-18] MEDS: Gabapentin 300 MG CAPSULE PO SCH (09:48)
[2017-09-18] MEDS: Aspirin 81 MG TAB.CHEW PO SCH (09:48)
[2017-09-18] MEDS: Metoprolol XL (24 HR) Succ 25 MG TAB.ER.24H PO SCH (09:48)
== END 2017-09-18 12:00 | disposition home or self-care (01) | DRG 720 ==
LOC: EMEROO 14:54 → 2ANU 19:54
PROVIDERS: ADMIT Internal Medicine; ATTEND Internal Medicine

== ENCOUNTER 2018-01-26 19:06 | Observation (INO) ==
[2018-01-26] MEDS ORDERED: Aspirin 81 MG TAB.CHEW PO ONE (19:29)
--- NOTE | 2018-01-26 19:34 | Emergency Department Note ---
Disposition Clinical Impression: Chest pain of uncertain etiology Disposition: Admitted As Inpatient Condition: Fair Referrals: Cole Bryant CNP [Primary Care Provider] - Forms: ED Satisfaction Letter Time of Disposition: 20:58 Chest Pain HPI - General Chief Complaint: ED Chest Pain Stated Complaint: Left Side CP Time Seen by Provider: 01/26/18 19:15 Vital Signs Reviewed: Yes Nursing Notes Reviewed: Yes - History of Present Illness HPI Narrative: Mrs. Lazo, 52-year-old female, presents from home for evaluation of chest pain. Described as a left-sided ache beneath her left breast which radiates circumferentially around her left side to her left back. Is not reproducible palpation. Associated with fatigue, dyspnea, nausea, dry cough. 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 Fibromyalgia. Hypertension. Hyperlipidemia. Shipping And Receiving Coordinator: KARENA Olea. Antiplatelet: Aspirin 81 mg by mouth daily Anticoagulant: None ROS: Positive: As above Negative: Fever, chills, vomiting, diaphoresis, abdominal pain, changes in bowel or bladder, weakness/numbness/tingling. Trauma. - Related Data Home Medications Medication Instructions Recorded Confirmed Aspirin 81 mg PO DAILY 05/09/15 09/15/17 Atorvastatin [Lipitor] 10 mg PO HS 05/09/15 09/15/17 Furosemide [Lasix] 20 mg PO DAILY 05/09/15 09/15/17 Metoprolol XL (24 HR) Succ [Toprol 25 mg PO HS 05/09/15 09/15/17 XL] Ropinirole HCl [Requip] 2 mg PO HS 02/01/16 09/15/17 Diclofenac Sodium [Voltaren] 75 mg PO BID PRN 01/14/17 09/15/17 Fluticasone Propionate [Flovent 2 puff IH BID PRN 07/08/17 09/15/17 Hfa] Gabapentin [Neurontin] 600 mg PO TID 07/08/17 09/15/17 Melatonin [Melatin] 9 mg PO HS 07/08/17 09/15/17 Omeprazole [PriLOSEC] 40 mg PO DAILY 07/08/17 09/15/17 Potassium Chloride [K-Tab ER] 20 meq PO Q48H 07/08/17 09/15/17 Amitriptyline [Elavil] 10 - 20 mg PO HS PRN 09/15/17 09/15/17 BuPROPion XL (24 HR) [Wellbutrin 150 mg PO BID 09/15/17 09/15/17 Xl] FLUoxetine HCl [Prozac] 40 mg PO DAILY 09/15/17 09/15/17 Folic Acid 1 mg PO DAILY 09/15/17 09/15/17 Lidocaine Patch [Lidoderm 5% patch] 1 each TP DAILY 09/15/17 09/15/17 Methotrexate [Otrexup] 10 mg PO QWEEK 09/15/17 09/15/17 Mv,Fe,Min/Lutein [A Thru Z Select 1 tab PO DAILY 09/15/17 09/15/17 Women's Tablet] PredniSONE [Deltasone] 30 mg PO DAILY 09/15/17 09/15/17 hydrOXYzine HCl [Hydroxyzine HCl] 25 mg PO BID 09/15/17 09/15/17 Previous Rx's Medication Instructions Recorded Ipratropium/Albuterol Neb [Duoneb] 3 ml IH [id number] PRN 30 Days #10 09/18/17 inhsol Levofloxacin [Levaquin] 500 mg PO DAILY #1 tablet 09/18/17 MOM Conc [Milk of Magnesia Conc] 10 ml PO DAILY PRN #30 mls 09/18/17 Nebulizer [Aeroeclipse] 1 each MC PRN PRN #1 each 09/18/17 Promethazine [Phenergan] 12.5 mg PO Q6HR PRN #30 tablet 09/18/17 Amoxicillin 875 mg PO BID #20 tablet 11/28/17 Allergies Allergy/AdvReac Type Severity Reaction Status Date / Time nitrofurantoin AdvReac Mild Rash Verified 11/28/17 11:21 [From Macrobid] Chest Pain PMH - Past Medical History Medical history: Reports: hyperlipidemia, hypertension, renal disease Surgical history: Reports: cholecystectomy, hysterectomy, LYNNE/BSO, AICD Psychiatric history: Reports: anxiety [employer] history: Reports: 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 Left axis. Nonspecific ST-T changes. Compared to previous dated 2017 showing no acute ischemic changes comparison. Patient's symptoms are concerning for anginal type symptoms. Echocardiogram dated 11/28/17 showed LVEF 55-60% with abnormal septal wall motion consistent with ventricular pacemaker Serum hematology is unremarkable. Serum chemistry is unremarkable; troponin is less than 0.03. Chest x-ray shows no acute findings per radiology read. Patient's chest pain-free after sublingual nitroglycerin 3. Discussed the patient with the admitting hospitalist, Dr. Marshall, who agrees to accept the patient for continued evaluation and management for chest pain rule out ACS. Chest X-Ray 01/26/18 19:29 IMPRESSION: Stable portable study. D/ / Jaja Sanchez Cha, MD / Jaja Sanchez Cha, MD Interpreting Provider: Jaja Sanchez Cha, MD Vital Signs Temperature 97.8 F 01/26/18 19:07 Pulse Rate 96 01/26/18 19:07 Respiratory Rate 18 01/26/18 19:07 Blood Pressure 130/85 01/26/18 19:07 O2 Sat by Pulse Oximetry 96 01/26/18 19:07 Temperature 97.8 F 01/26/18 19:07 Pulse Rate 96 01/26/18 19:07 Respiratory Rate 18 01/26/18 19:07 Blood Pressure 130/85 01/26/18 19:07 O2 Sat by Pulse Oximetry 96 01/26/18 19:38 Oxygen Delivery Oxygen Delivery Room Air Chest Pain - Lab Data Result diagrams: 01/26/18 19:32 01/26/18 19:32 Lab Results 01/26/18 01/26/18 01/26/18 Range/Units 19:32 19:32 19:32 WBC 8.7 (4.3-11.1) K/mcL RBC 4.65 (3.82-4.97) M/mcL Hgb 13.2 (11.5-15.4) g/dL Hct 42.0 (35.3-44.9) % MCV 90.3 (83.0-100.0) fL MCH 28.4 (28.0-33.3) pg MCHC 31.4 L (31.6-35.5) g/dL RDW 15.4 H (11.5-14.5) % Plt Count 363 (140-400) K/mcL MPV 9.1 L (9.4-12.4) fL Immature Gran % 0.3 (0-4) % Seg Neutrophils % 61.4 % Lymphocytes % 23.0 % Monocytes % 8.7 % Eosinophils % 5.7 % Basophils % 0.9 % Neutrophils # 5.4 (1.6-8.9) K/mcL Lymphocytes # 2.0 (0.6-4.6) K/mcL Monocytes # 0.8 (0.0-1.3) K/mcL Eosinophils # 0.5 (0.0-0.6) K/mcL Basophils # 0.1 (0.0-0.2) K/mcL PT 11.2 (9.4-12.1) Seconds INR 1.0 APTT 30.1 (26.0-36.0) Seconds Sodium 139 (136-145) mEq/L Potassium 3.8 (3.5-5.1) mEq/L Chloride 104 (98-107) mEq/L Carbon Dioxide 26 (23-29) mEq/L BUN 11 (6-20) mg/dL Creatinine 0.97 (0.60-1.20) mg/dL Est GFR ( Amer) > 60 (> 60) Est GFR (Non-Af Amer) > 60 (> 60) BUN/Creatinine Ratio 11 (6-26) Glucose 125 H (70-105) mg/dL Calculated Osmolality 289 (280-300) Calcium 9.4 (8.6-10.3) mg/dL Troponin I < 0.03 (< 0.04) ng/mL Heart Score - Score History: Moderately Suspicious EKG: Non Specific repolarisation Disturbance Age: 45-65 Risk Factors: Equal/Greater than 3 risk factor or history of atherosclerotic disease Troponin: Less than normal limit HEART Score Total: 5 Attestation Statement - Attestation Attestation: I, Bryan Castro DO, examined this patient [id number] and my medical decision-making was reviewed with Dr. David Gonzales, Resident Physician. I agree with the documented findings, disposition and treatment plan as described except to the extent set forth below. Please see my progress notes for details. See detailed documentation of the course of care documentation of my note. Resident physician documented the patient will be started on heparin drip at this time considering anginal-like presentation no history of anticoagulation. She denies any hematochezia, vaginal bleeding, history of ulcers or bleeding related issues or disorders. Patient will be admitted for definitive management at this time.
[2018-01-26 19:59] LABS: Basophils # 0.1 K/mcL (0.0-0.2); Basophils % 0.9 %; Eosinophils # 0.5 K/mcL (0.0-0.6); Eosinophils % 5.7 %; Hemoglobin 13.2 g/dL (11.5-15.4); Immature Granulocytes % 0.3 % (0-4); Mean Corpuscular HGB Conc 31.4 g/dL (31.6-35.5); Mean Corpuscular Hemoglobin 28.4 pg (28.0-33.3); Mean Corpuscular Volume 90.3 fL (83.0-100.0); Mean Platelet Volume 9.1 fL (9.4-12.4); Monocytes # 0.8 K/mcL (0.0-1.3); Monocytes % 8.7 %; Neutrophils # 5.4 K/mcL (1.6-8.9); Platelet Count 363 K/mcL (140-400); Red Blood Count 4.65 M/mcL (3.82-4.97); Red Cell Distribution Width 15.4 % (11.5-14.5); Segmented Neutrophils % 61.4 %
[2018-01-26] MEDS ORDERED: Nitroglycerin 0.4 MG TAB.SUBL SL PRN ×2 (20:01→21:06)
[2018-01-26 20:04] LABS: Prothrombin Time 11.2 Seconds (9.4-12.1)
[2018-01-26 20:07] LABS: Activated Partial Thrombo Time 30.1 Seconds (26.0-36.0)
[2018-01-26 20:20] LABS: Troponin I < 0.03 ng/mL (< 0.04)
[2018-01-26 20:21] LABS: BUN/Creatinine Ratio 11 (6-26); Blood Urea Nitrogen 11 mg/dL (6-20); Calcium 9.4 mg/dL (8.6-10.3); Carbon Dioxide 26 mEq/L (23-29); Chloride 104 mEq/L (98-107); Glucose 125 mg/dL (70-105); Osmolality,Calculated 289 (280-300); Potassium 3.8 mEq/L (3.5-5.1); Sodium 139 mEq/L (136-145); eGFR For African Americans > 60 (> 60); eGFR For Non-African Americans > 60 (> 60)
--- NOTE | 2018-01-26 20:44 | Emergency Department Note ---
Disposition Clinical Impression: Chest pain of uncertain etiology Disposition: Admitted As Inpatient Condition: Fair Referrals: Cole Bryant, MACHINE MARKER [Primary Care Provider] - Forms: ED Satisfaction Letter Time of Disposition: 20:44 General Adult HPI - General Chief complaint: ED Chest Pain Stated complaint: Left Side CP Time Seen by Provider: 01/26/18 19:15 - Related Data Home Medications Medication Instructions Recorded Confirmed Aspirin 81 mg PO DAILY 05/09/15 09/15/17 Atorvastatin [Lipitor] 10 mg PO HS 05/09/15 09/15/17 Furosemide [Lasix] 20 mg PO DAILY 05/09/15 09/15/17 Metoprolol XL (24 HR) Succ [Toprol 25 mg PO HS 05/09/15 09/15/17 XL] Ropinirole HCl [Requip] 2 mg PO HS 02/01/16 09/15/17 Diclofenac Sodium [Voltaren] 75 mg PO BID PRN 01/14/17 09/15/17 Fluticasone Propionate [Flovent 2 puff IH BID PRN 07/08/17 09/15/17 Hfa] Gabapentin [Neurontin] 600 mg PO TID 07/08/17 09/15/17 Melatonin [Melatin] 9 mg PO HS 07/08/17 09/15/17 Omeprazole [PriLOSEC] 40 mg PO DAILY 07/08/17 09/15/17 Potassium Chloride [K-Tab ER] 20 meq PO Q48H 07/08/17 09/15/17 Amitriptyline [Elavil] 10 - 20 mg PO HS PRN 09/15/17 09/15/17 BuPROPion XL (24 HR) [Wellbutrin 150 mg PO BID 09/15/17 09/15/17 Xl] FLUoxetine HCl [Prozac] 40 mg PO DAILY 09/15/17 09/15/17 Folic Acid 1 mg PO DAILY 09/15/17 09/15/17 Lidocaine Patch [Lidoderm 5% patch] 1 each TP DAILY 09/15/17 09/15/17 Methotrexate [Otrexup] 10 mg PO QWEEK 09/15/17 09/15/17 Mv,Fe,Min/Lutein [A Thru Z Select 1 tab PO DAILY 09/15/17 09/15/17 Women's Tablet] PredniSONE [Deltasone] 30 mg PO DAILY 09/15/17 09/15/17 hydrOXYzine HCl [Hydroxyzine HCl] 25 mg PO BID 09/15/17 09/15/17 Previous Rx's Medication Instructions Recorded Ipratropium/Albuterol Neb [Duoneb] 3 ml IH [id number] PRN 30 Days #10 09/18/17 inhsol Levofloxacin [Levaquin] 500 mg PO DAILY #1 tablet 09/18/17 MOM Conc [Milk of Magnesia Conc] 10 ml PO DAILY PRN #30 mls 09/18/17 Nebulizer [Aeroeclipse] 1 each MC PRN PRN #1 each 09/18/17 Promethazine [Phenergan] 12.5 mg PO Q6HR PRN #30 tablet 09/18/17 Amoxicillin 875 mg PO BID #20 tablet 11/28/17 Allergies Allergy/AdvReac Type Severity Reaction Status Date / Time nitrofurantoin AdvReac Mild Rash Verified 11/28/17 11:21 [From Macrobid] Past Medical History - Past Medical History Medical history: Reports: hyperlipidemia, hypertension, renal disease Surgical history: Reports: cholecystectomy, hysterectomy, LYNNE/BSO, AICD Psychiatric history: Reports: anxiety BINDING STITCHER history: Reports: no BINDING STITCHER history - Social History Smoking Status: Never smoker Smokeless Tobacco Status: No Alcohol use: Reports: none Drug use: Reports: none Course Vital Signs Temperature 97.8 F 01/26/18 19:07 Pulse Rate 96 01/26/18 19:07 Respiratory Rate 18 01/26/18 19:07 Blood Pressure 130/85 01/26/18 19:07 O2 Sat by Pulse Oximetry 96 01/26/18 19:07 Temperature 97.8 F 01/26/18 19:07 Pulse Rate 96 01/26/18 19:07 Respiratory Rate 18 01/26/18 19:07 Blood Pressure 130/85 01/26/18 19:07 O2 Sat by Pulse Oximetry 96 01/26/18 19:38 Oxygen Delivery Oxygen Delivery Room Air Medical Decision Making - Lab Data Result diagrams: 01/26/18 19:32 01/26/18 19:32 Lab Results 01/26/18 01/26/18 01/26/18 Range/Units 19:32 19:32 19:32 WBC 8.7 (4.3-11.1) K/mcL RBC 4.65 (3.82-4.97) M/mcL Hgb 13.2 (11.5-15.4) g/dL Hct 42.0 (35.3-44.9) % MCV 90.3 (83.0-100.0) fL MCH 28.4 (28.0-33.3) pg MCHC 31.4 L (31.6-35.5) g/dL RDW 15.4 H (11.5-14.5) % Plt Count 363 (140-400) K/mcL MPV 9.1 L (9.4-12.4) fL Immature Gran % 0.3 (0-4) % Seg Neutrophils % 61.4 % Lymphocytes % 23.0 % Monocytes % 8.7 % Eosinophils % 5.7 % Basophils % 0.9 % Neutrophils # 5.4 (1.6-8.9) K/mcL Lymphocytes # 2.0 (0.6-4.6) K/mcL Monocytes # 0.8 (0.0-1.3) K/mcL Eosinophils # 0.5 (0.0-0.6) K/mcL Basophils # 0.1 (0.0-0.2) K/mcL PT 11.2 (9.4-12.1) Seconds INR 1.0 APTT 30.1 (26.0-36.0) Seconds Sodium 139 (136-145) mEq/L Potassium 3.8 (3.5-5.1) mEq/L Chloride 104 (98-107) mEq/L Carbon Dioxide 26 (23-29) mEq/L BUN 11 (6-20) mg/dL Creatinine 0.97 (0.60-1.20) mg/dL Est GFR ( Amer) > 60 (> 60) Est GFR (Non-Af Amer) > 60 (> 60) BUN/Creatinine Ratio 11 (6-26) Glucose 125 H (70-105) mg/dL Calculated Osmolality 289 (280-300) Calcium 9.4 (8.6-10.3) mg/dL Troponin I < 0.03 (< 0.04) ng/mL Attestation Statement - Attestation Attestation: I, Bryan Castro DO, examined this patient [id number] and my medical decision-making was reviewed with Dr. David Gonzales, Resident Physician. I agree with the documented findings, disposition and treatment plan as described except to the extent set forth below. Please see my progress notes for details. 52-year-old female presents to the emergency room with chest tightness and pain that radiates around the left side of her chest wall. Patient does have cardiac history with third-degree heart block that required pacemaker defibrillator being placed. Patient denies any falls traumas or injury. She was started on any medication within the last week but had the onset of the symptoms here today. She has never had chest tightness and pain like this in the past. EKG showed ventricularly paced rhythm with no other acute abnormalities. Screening labs including CBC chemistry troponin started this time. Single dose of nitroglycerin was given here in the emergency room to see if it relieves the symptoms considering she still had the chest tightness on arrival. Patient will have screening evaluation completed this point. Vital signs are reviewed and are stable. And CBC chemistry EKG labs including troponin and BNP along with chest x-ray will be ordered and resulted along with symptomatic control. Patient is currently taking a full aspirin every day and she took this today prior to coming in. Further intervention medical management will be determined once a full workup and treatment course are established. See detailed documentation of physical exam, medical intervention , medical decision-making and disposition in the resident physician's note. No critical care provider the patient's treatment course at this time. My physical exam shows a well-appearing female in no apparent distress lungs are clear heart is regular abdomen is soft nontender nondistended with no guarding no rigidity. She has no reproducible symptoms on exam. 2034 Patient has complete resolution of the chest tightness at this time. Her troponin was unremarkable. Patient will be started on a heparin drip in conversation will be had with the hospitalist for admission of what appears to be angina. Patient is otherwise clinically stable at this point would no other acute findings on workup. Patient will require further workup and treatment. Patient did have an echocardiogram completed in August last year showed a normal EF but did have septal wall motion defects secondary to the pacemaker defibrillator. Otherwise she is clinically stable. Disposition will be determined once conversations had with the hospitals. Any recommendations will be noted and evaluated and treated here in the emergency room prior to admission process to be completed.
[2018-01-26] MEDS ORDERED: *HR* Heparin 5,000 UNIT/ML VIAL IVP PRN ×2 (21:03)
[2018-01-26] MEDS ORDERED: *HR* Heparin 5,000 UNIT/ML VIAL IVP ONE (21:03)
--- NOTE | 2018-01-26 21:04 | Internal Med History&Physical ---
Date of Encounter: 01/26/18 Time of Encounter: 21:01 Internal Medicine - H&P: HPI Chief complaint: chest pain Admitted From: Emergency Dept Plans for Post Hospital Care: Home History of present illness: Ms. Lazo is a 52 year old female with history of 3rd degree heart block s/p pacemaker, htn, hld, fibromyalgia, sarcoidosis who presents with chest pain left sided since around 1 pm started on rest. Radiates to the left side to her left back. Positive for exertional dyspnea. Reports fatigue. Resolved after 3 SL nitro. EKG and trops with nothing acute in ED. Took adult dose ASA. labs unremakable. CXR negative. Echo august 2017 with EF 55-60^ and mild left ventricle diastolic dysfunction. Atypical septal motion consistent with paced rhythm. denies fever, chills, nausea, vomiting, abdominal pain, diarrhea, constipation, urinary symptoms, or neurological symptoms. Past Med Surg Social Fam HX - Past Medical History Medical history: hyperlipidemia, hypertension, renal disease Psychiatric history: anxiety - Past Surgical History Surgical History: cholecystectomy, hysterectomy, LYNNE/BSO, AICD - Social History Smoking Status: Never smoker Smokeless Tobacco Status: No Alcohol use: none Drug use: none - Family History Brother Family Member Ethnicity: Non- Living Status: Still Living Hx Family Endocrine Disorder: Yes (DM) Mother Family Member Ethnicity: Non- Living Status: Still Living Hx Family Respiratory Disorders: Yes (Asthma) Hx Family Neuromuscular Disorders: Yes (Parkinson's disease) Father Family Member Ethnicity: Non- Living Status: Still Living Hx Family Cardiac Disorders: Yes (Triple bypass, CAD, [place], HTN) Hx Family Respiratory Disorders: No Hx Family GI Disorders: Yes Internal Medicine - H&P: Meds Aspirin 81 mg PO DAILY 05/09/15 [History] Atorvastatin [Lipitor] 10 mg PO HS 05/09/15 [History] Furosemide [Lasix] 20 mg PO DAILY 05/09/15 [History] Metoprolol XL (24 HR) Succ [Toprol XL] 25 mg PO HS 05/09/15 [History] Ropinirole HCl [Requip] 2 mg PO HS 02/01/16 [History] Diclofenac Sodium [Voltaren] 75 mg PO BID PRN 01/14/17 [History] Melatonin [Melatin] 9 mg PO HS 07/08/17 [History] Omeprazole [PriLOSEC] 40 mg PO DAILY 07/08/17 [History] Potassium Chloride [K-Tab ER] 20 meq PO Q48H 07/08/17 [History] Amitriptyline [Elavil] 10 - 20 mg PO HS PRN 09/15/17 [History] Folic Acid 1 mg PO DAILY 09/15/17 [History] Methotrexate [Otrexup] 10 mg PO QWEEK 09/15/17 [History] Mv,Fe,Min/Lutein [A Thru Z Select Women's Tablet] 1 tab PO DAILY 09/15/17 [ History] Ipratropium/Albuterol Neb [Duoneb] 3 ml IH [id number] PRN 30 Days #10 inhsol [Rx] Promethazine [Phenergan] 12.5 mg PO Q6HR PRN #30 tablet 09/18/17 [Rx] DULoxetine [Cymbalta] 30 mg PO DAILY 01/26/18 [History] Fluticasone/Vilanterol [Breo Ellipta 200-25 Mcg INH] 1 puff IH DAILY 01/26/18 [ History] Gabapentin [Neurontin] 800 mg PO TID 01/26/18 [History] Losartan [Cozaar] 25 mg PO DAILY 01/26/18 [History] 3 Allergy/AdvReac Type Severity Reaction Status Date / Time nitrofurantoin AdvReac Mild Rash Verified 11/28/17 11:21 [From Macrobid] All Systems PM: A 10-system review of systems was performed and is negative for pertinent findings except as documented above in the HPI. Review of systems: All systems reviewed are negative except as mentioned above - Constitutional Vitals: Temp Pulse Resp BP Pulse Ox 97.8 F 96 18 130/85 96 01/26/18 19:07 01/26/18 19:07 01/26/18 19:07 01/26/18 19:07 01/26/18 19:38 Exam: GEN: NAD HEENT: AT, NC, No cyanosis, oral mucosa is moist, No JVD Lymphatics: No lymphadenoapthy Eyes: Extrocular muscles intact, anicteric CVS:RRR. S1, S2, No m/r/g RESP: CTAB ABD: Soft, NT, ND, +BS EXT: No edema, No rashes, 2+ DP NEURO: Nonfocal, CN II-XII intact, No focal motor or sensory deficits Psych: Cooperative, Not anxious or depressed Internal Med - H&P Results - Labs CBC & Chem 7: 01/26/18 19:32 01/26/18 19:32 Labs: Short CBC 01/26/18 Range/Units 19:32 WBC 8.7 (4.3-11.1) K/mcL Hgb 13.2 (11.5-15.4) g/dL Hct 42.0 (35.3-44.9) % Plt Count 363 (140-400) K/mcL Neutrophils # 5.4 (1.6-8.9) K/mcL BMP 01/26/18 19:32 Sodium 139 Potassium 3.8 Chloride 104 Carbon Dioxide 26 BUN 11 Creatinine 0.97 Glucose 125 H Calcium 9.4 Cardiac Enzymes 01/26/18 Range/Units 19:32 Troponin I < 0.03 (< 0.04) ng/mL - Impressions ITS Impressions Chest X-Ray 01/26/18 19:29 IMPRESSION: Stable portable study. D/ / Jaja Sanchez Cha, MD / Jaja Sanchez Cha, MD Interpreting Provider: Jaja Sanchez Cha, MD - Assessment and plan (1) Chest pain Current Visit: No Status: Chronic Assessment and plan: Admit the patient to telemetry. Trend cardiac enzymes. Stress test in the morning. Nothing by mouth after midnight. Sublingual nitroglycerin when necessary. Check A1c and lipid panel. Qualifiers: Chest pain type: unspecified Qualified Code(s): R07.9 - Chest pain, unspecified (2) HLD (hyperlipidemia) Current Visit: No Status: Chronic Assessment and plan: Continue statin Qualifiers: Hyperlipidemia type: unspecified Qualified Code(s): E78.5 - Hyperlipidemia , unspecified (3) HTN (hypertension) Current Visit: No Status: Chronic Assessment and plan: Continue home antihypertensives. Qualifiers: Hypertension type: essential hypertension Qualified Code(s): I10 - Essential (primary) hypertension (4) Pacemaker Current Visit: No Status: Chronic Assessment and plan: Chronic. Patient has Third degree heart block history. (5) Sarcoidosis Current Visit: No Status: Chronic Assessment and plan: Resume home meds including inhalers. (6) DVT prophylaxis Current Visit: No Status: Acute Assessment and plan: Heparin subcutaneous - Time Spent With Patient Total time spent is greater than 50% in coordination of care (as documented) at patient's floor/unit and/or counseling patient:
[2018-01-26] MEDS ORDERED: Naloxone 0.4 MG/ML INJ IVP PRN (21:07)
[2018-01-26] MEDS ORDERED: Ipratropium/Albuterol Neb 3 ML IH PRN (21:08)
[2018-01-26] MEDS ORDERED: Heparin 25,000 UNIT/500 ML D5W 25,000 UNIT/500 ML BAG IVC SCH (21:15)
[2018-01-26] MEDS ORDERED: *HR* Methotrexate 2.5 MG TABLET PO SCH (23:45)
[2018-01-26] MEDS: Melatonin 3 MG TABLET PO SCH (23:48)
[2018-01-26] MEDS: Metoprolol XL (24 HR) Succ 25 MG TAB.ER.24H PO SCH (23:49)
[2018-01-26] MEDS: rOPINIRole 1 MG TABLET PO SCH (23:49)
[2018-01-26] MEDS: *HR* Heparin 5,000 UNIT/ML VIAL SQ SCH (23:50)
[2018-01-27] MEDS: Gabapentin 400 MG CAPSULE PO SCH ×4 (00:23→20:43)
[2018-01-27 02:09] LABS: Basophils # 0.1 K/mcL (0.0-0.2); Basophils % 0.9 %; Eosinophils # 0.5 K/mcL (0.0-0.6); Eosinophils % 6.4 %; Hematocrit 37.2 % (35.3-44.9); Immature Granulocytes % 0.3 % (0-4); Lymphocytes # 2.1 K/mcL (0.6-4.6); Lymphocytes % 27.1 %; Mean Corpuscular HGB Conc 32.3 g/dL (31.6-35.5); Mean Corpuscular Hemoglobin 29.1 pg (28.0-33.3); Mean Corpuscular Volume 90.1 fL (83.0-100.0); Mean Platelet Volume 9.6 fL (9.4-12.4); Monocytes # 0.8 K/mcL (0.0-1.3); Monocytes % 9.5 %; Neutrophils # 4.4 K/mcL (1.6-8.9); Platelet Count 327 K/mcL (140-400); Red Blood Count 4.13 M/mcL (3.82-4.97); Red Cell Distribution Width 15.4 % (11.5-14.5); Segmented Neutrophils % 55.8 %
[2018-01-27 02:28] LABS: BUN/Creatinine Ratio 12 (6-26); Blood Urea Nitrogen 11 mg/dL (6-20); Carbon Dioxide 26 mEq/L (23-29); Chloride 106 mEq/L (98-107); Chol/HDL Ratio 2.9 (0-4.9); Cholesterol 108 mg/dL (< 200); Glucose 101 mg/dL (70-105); HDL Cholesterol 37 mg/dL (40-59); LDL Cholesterol,Calculated 45 mg/dL (0-99); Magnesium 2.1 mg/dL (1.6-2.6); Osmolality,Calculated 290 (280-300); Potassium 3.3 mEq/L (3.5-5.1); Sodium 140 mEq/L (136-145); Triglycerides 132 mg/dL (< 150); eGFR For African Americans > 60 (> 60); eGFR For Non-African Americans > 60 (> 60)
[2018-01-27] MEDS: *HR* Heparin 5,000 UNIT/ML VIAL SQ SCH ×3 (06:20→20:43)
[2018-01-27] MEDS ORDERED: Regadenoson 0.4 MG/5 ML SYRINGE IVP ONE (06:26)
[2018-01-27 09:04] LABS: Estimated Average Glucose 140 mg/dl; Hemoglobin A1C 6.5 %
[2018-01-27] MEDS: Multivit/Ca/Min/Fe/FA 1 TAB TABLET PO SCH (09:41)
[2018-01-27] MEDS: Furosemide 20 MG TABLET PO SCH (09:41)
[2018-01-27] MEDS: Folic Acid 1 MG TABLET PO SCH (09:41)
[2018-01-27] MEDS: Aspirin 81 MG TAB.CHEW PO SCH (09:41)
--- NOTE | 2018-01-27 11:56 | Internal Med Progress Note ---
<Laurie Ramsey - Last Filed: 01/27/18 14:05> Date of Encounter: 01/27/18 Time of Encounter: 11:54 - Assessment and plan (1) Chest pain Current Visit: No Status: Chronic Assessment and plan: Atypical chest pain. Left-sided chest pain that radiated to back and began while at rest. Lasted over 2 hours and was relieved with 3 nitroglycerin given in ED. Associated with nausea and shortness of breath. Troponin negative. Lipid panel WNL EKG HR 88, no ST elevation or T wave inversion. unchanged from previous. ECHO 08/2017 EF 55-60% mild LV diastolic dysfunction, atypical septal motion consistent with paced rhythm afebrile, heart rate 60, SPO2 96 room air, RR 16 CARSON 3 (CAD risk factors, aspirin use, severe angina) Today patient reports that she has minimal chest pressure and a little shortness of breath. -2 day Pharm stress test. Part 2 done tomorrow -NPO midnight -holding home Toprol -hold nitrites -continue aspirin Qualifiers: Chest pain type: unspecified Qualified Code(s): R07.9 - Chest pain, unspecified (2) Sarcoidosis Current Visit: No Status: Chronic Assessment and plan: History of known sarcoidosis taking methotrexate. -Continue home methotrexate (3) HTN (hypertension) Current Visit: No Status: Chronic Assessment and plan: History of hypertension taking losartan, Toprol, Lasix blood pressure stable continue losartan and Lasix hold Toprol for stress test in a.m. Qualifiers: Hypertension type: essential hypertension Qualified Code(s): I10 - Essential (primary) hypertension (4) HLD (hyperlipidemia) Current Visit: No Status: Chronic Assessment and plan: Continue statin Qualifiers: Hyperlipidemia type: unspecified Qualified Code(s): E78.5 - Hyperlipidemia , unspecified (5) DVT prophylaxis Current Visit: No Status: Acute Assessment and plan: Heparin subcutaneous (6) Pacemaker Current Visit: No Status: Chronic Assessment and plan: pacemaker for Third degree heart block - Time Spent With Patient Total time spent is greater than 50% in coordination of care (as documented) at patient's floor/unit and/or counseling patient: - Subjective Interval history: 52yo female PMH 3rd degree heart block s/p pacemaker, htn, hld, fibromyalgia, sarcoidosis who presented complaining of chest pain. Upon my examination she is alert and oriented x3. She reports she has pressure like chest discomfort and minimal shortness of breathe. She is alongside her and mother. She denies nausea, vomiting, fever, chills. She has not other complaints. - Constitutional Vitals: Temp Pulse Resp BP Pulse Ox 97.4 F L 60 16 116/69 96 01/27/18 11:13 01/27/18 11:13 01/27/18 11:13 01/27/18 11:13 01/27/18 11:13 Exam: Gen.: Vitals noted. No acute distress. AAOx3 HEENT: oropharynx clear, Normocephalic, atraumatic Cardiac: RRR, no murmur, +S1/S2 Pulmonary: CTA bilaterally, no wheezes, rales or rhonchi, equal chest expansion Abdomen: soft, nontender, Bowel sounds noted, no guarding MSK: ROM intact, no joint swelling noted Extremities: +BLE edema, nontender calf, no cyanosis or clubbing Neuro: A&Ox3, moves all extremities, no focal deficits Psych: Appropriate mood and behavior Internal Medicine: Result - Labs CBC & Chem 7: 01/27/18 01:37 01/27/18 01:37 Labs: Short CBC 01/27/18 Range/Units 01:37 WBC 7.9 (4.3-11.1) K/mcL Hgb 12.0 (11.5-15.4) g/dL Hct 37.2 (35.3-44.9) % Plt Count 327 (140-400) K/mcL Neutrophils # 4.4 (1.6-8.9) K/mcL BMP 01/27/18 01:37 Sodium 140 Potassium 3.3 L Chloride 106 Carbon Dioxide 26 BUN 11 Creatinine 0.94 Glucose 101 Calcium 9.0 Cardiac Enzymes 01/27/18 Range/Units 01:37 Troponin I < 0.03 (< 0.04) ng/mL - ABG Interpretation ABG results: PT/INR, D-dimer PT 11.2 Seconds (9.4-12.1) 01/26/18 19:32 Consult Discharge Plan - Plan Referrals: Cole Bryant, JORGE [Primary Care Provider] - 02/03/18 10:00 am <Morgan Luther - Last Filed: 01/27/18 18:20> Date of Encounter: 01/27/18 - Assessment and plan (1) Chest pain Current Visit: No Status: Suspected Qualifiers: Chest pain type: chest pain due to myocardial ischemia Ischemic chest pain type: stable angina pectoris Qualified Code(s): I20.8 - Other forms of angina pectoris (2) Sarcoidosis Current Visit: No Status: Chronic (3) DVT prophylaxis Current Visit: No Status: Acute (4) HTN (hypertension) Current Visit: No Status: Chronic Qualifiers: Hypertension type: essential hypertension Qualified Code(s): I10 - Essential (primary) hypertension (5) HLD (hyperlipidemia) Current Visit: No Status: Chronic Qualifiers: Hyperlipidemia type: mixed hyperlipidemia Qualified Code(s): E78.2 - Mixed hyperlipidemia (6) Pacemaker Current Visit: No Status: Chronic (7) RLS (restless legs syndrome) Current Visit: No Status: Chronic (8) Morbid obesity with BMI of 40.0-44.9, adult Current Visit: Yes Status: Chronic (9) Diastolic CHF Current Visit: Yes Status: Chronic Qualifiers: Heart failure chronicity: chronic Qualified Code(s): I50.32 - Chronic diastolic (congestive) heart failure - Time Spent With Patient Total time spent is greater than 50% in coordination of care (as documented) at patient's floor/unit and/or counseling patient: - Constitutional Vitals: Temp Pulse Resp BP Pulse Ox 97.6 F 72 16 101/58 93 01/27/18 16:33 01/27/18 16:33 01/27/18 16:33 01/27/18 16:33 01/27/18 16:33 Internal Medicine: Result - Labs CBC & Chem 7: 01/27/18 01:37 01/27/18 01:37 Labs: Short CBC 01/27/18 Range/Units 01:37 WBC 7.9 (4.3-11.1) K/mcL Hgb 12.0 (11.5-15.4) g/dL Hct 37.2 (35.3-44.9) % Plt Count 327 (140-400) K/mcL Neutrophils # 4.4 (1.6-8.9) K/mcL BMP 01/27/18 01:37 Sodium 140 Potassium 3.3 L Chloride 106 Carbon Dioxide 26 BUN 11 Creatinine 0.94 Glucose 101 Calcium 9.0 Cardiac Enzymes 01/27/18 Range/Units 01:37 Troponin I < 0.03 (< 0.04) ng/mL - ABG Interpretation ABG results: PT/INR, D-dimer PT 11.2 Seconds (9.4-12.1) 01/26/18 19:32 - Attending Attestation I examined this patient and my medical decision-making was reviewed with the Resident Physician on 01/27/18. I agree with the documented findings, disposition and treatment plan as described except to the extent set forth below. Ms Lazo is currently in observation for chest pain. Troponin negative. She had first part of stress today and second tomorrow. She remains moderate to high risk. Exam Alert Comfortable Mucus membranes dry Heart not tachy No wheeze I/P 1. Chest pain 2. Morbid obesity Part 2 of stress tomorrow. If neg anticipate d/c. Further diagnoses and plan as above.
[2018-01-27] MEDS: rOPINIRole 1 MG TABLET PO SCH ×2 (15:54→20:43)
[2018-01-27] MEDS: Melatonin 3 MG TABLET PO SCH (20:43)
[2018-01-27] MEDS: Ondansetron 4 MG/2 ML VIAL IVP PRN (20:43)
[2018-01-27] MEDS ORDERED: Melatonin 3 MG TABLET PO SCH (21:00)
[2018-01-27] MEDS ORDERED: Metoprolol XL (24 HR) Succ 25 MG TAB.ER.24H PO SCH (21:00)
[2018-01-27] MEDS ORDERED: rOPINIRole 1 MG TABLET PO SCH (21:00)
[2018-01-27] MEDS: Budesonide/Formoterol 80/4.5 MDI IH SCH (22:13)
[2018-01-28] MEDS: *HR* Heparin 5,000 UNIT/ML VIAL SQ SCH ×3 (05:32→22:09)
--- NOTE | 2018-01-28 06:21 | Electrocardiograph Report ---
[address] [address] Test Date: 2018-01-26 Pat Name: Mary Lazo Department: 104 Room: 3A47 Gender: F Care Partner: BETTINA : 1965 Requested By: Bryan Castro Order Number: [id number] Reading MD: Russ Hill Measurements Intervals [place] Rate: 85 P: 47 KS: 131 QRS: -70 QRSD: 153 T: 77 QT: 407 QTc: 450 Interpretive Statements ELECTRONIC VENTRICULAR PACEMAKER ABNORMAL RHYTHM ECG Electronically Signed On 01-28-2018 6:19:29 EDT by Russ Hill
[2018-01-28 07:17] LABS: BUN/Creatinine Ratio 12 (6-26); Blood Urea Nitrogen 10 mg/dL (6-20); Calcium 8.9 mg/dL (8.6-10.3); Carbon Dioxide 28 mEq/L (23-29); Chloride 108 mEq/L (98-107); Glucose 135 mg/dL (70-105); Osmolality,Calculated 295 (280-300); Potassium 3.9 mEq/L (3.5-5.1); Sodium 142 mEq/L (136-145); eGFR For African Americans > 60 (> 60); eGFR For Non-African Americans > 60 (> 60)
[2018-01-28] MEDS: Gabapentin 400 MG CAPSULE PO SCH ×3 (08:57→22:08)
[2018-01-28] MEDS: Multivit/Ca/Min/Fe/FA 1 TAB TABLET PO SCH (08:57)
[2018-01-28] MEDS: Acetaminophen 325 MG TABLET PO PRN ×2 (08:58→18:39)
[2018-01-28] MEDS: Folic Acid 1 MG TABLET PO SCH (08:58)
[2018-01-28] MEDS: Aspirin 81 MG TAB.CHEW PO SCH (08:58)
[2018-01-28] MEDS: Furosemide 20 MG TABLET PO SCH (08:58)
[2018-01-28] MEDS: rOPINIRole 1 MG TABLET PO SCH ×2 (08:58→22:08)
[2018-01-28] MEDS: Budesonide/Formoterol 80/4.5 MDI IH SCH ×2 (09:41→21:37)
--- NOTE | 2018-01-28 17:59 | Internal Med Progress Note ---
Date of Encounter: 01/28/18 Time of Encounter: 11:30 - Assessment and plan (1) Chest pain Current Visit: No Status: Suspected Assessment and plan: Pt currently asymptomatic. Stress test shows possible ischemia anteriorly. Will ask cardiology to evaluate. Continue supportive care for now. Qualifiers: Chest pain type: chest pain due to myocardial ischemia Ischemic chest pain type: stable angina pectoris Qualified Code(s): I20.8 - Other forms of angina pectoris (2) Sarcoidosis Current Visit: No Status: Chronic Assessment and plan: History of known sarcoidosis taking methotrexate. -Continue home methotrexate (3) DVT prophylaxis Current Visit: No Status: Acute Assessment and plan: Heparin subcutaneous (4) HTN (hypertension) Current Visit: No Status: Chronic Assessment and plan: Chronic issue Continue home medications. Qualifiers: Hypertension type: essential hypertension Qualified Code(s): I10 - Essential (primary) hypertension (5) HLD (hyperlipidemia) Current Visit: No Status: Chronic Assessment and plan: Continue statin Qualifiers: Hyperlipidemia type: mixed hyperlipidemia Qualified Code(s): E78.2 - Mixed hyperlipidemia (6) Pacemaker Current Visit: No Status: Chronic Assessment and plan: pacemaker for Third degree heart block (7) RLS (restless legs syndrome) Current Visit: No Status: Chronic Assessment and plan: Continue home treatment. (8) Morbid obesity with BMI of 40.0-44.9, adult Current Visit: Yes Status: Chronic Assessment and plan: Chronic issue (9) Diastolic CHF Current Visit: Yes Status: Chronic Assessment and plan: No symptoms at this time. Qualifiers: Heart failure chronicity: chronic Qualified Code(s): I50.32 - Chronic diastolic (congestive) heart failure - Time Spent With Patient Total time spent is greater than 50% in coordination of care (as documented) at patient's floor/unit and/or counseling patient: - Subjective Interval history: Ms Lazo is currently in observation for chest pain. She remains moderate to high risk. Ms Lazo had stress test this AM. She has had no further discomfort since nitro given. No fever. No cough. No GI issues. - Constitutional Vitals: Temp Pulse Resp BP Pulse Ox 98.0 F 84 16 109/68 94 01/28/18 14:47 01/28/18 14:47 01/28/18 14:47 01/28/18 14:47 05/05/18 14:47 General appearance: Present: A&O X 3, pleasant, answers questions appropriately - Head Head exam: Present: normocephalic - Eye Eye exam: Present: conjuntiva pink - ENT ENT exam: Present: mucous membranes dry - Respiratory Respiratory exam: Present: CTAB. Absent: rales, rhonchi, wheezes - Cardiovascular Cardiovascular exam: Present: RRR. Absent: tachycardia - GI/Abdominal GI/Abdominal exam: Present: soft. Absent: tenderness - Extremities Exam Extremities exam: Present: warm. Absent: tenderness - Neurological Exam Neurological exam: Present: alert, oriented X3, no focal deficits - Skin Skin exam: Present: dry, warm Internal Medicine: Result - Labs CBC & Chem 7: 01/27/18 01:37 01/28/18 06:36 Labs: BMP 01/28/18 06:36 Sodium 142 Potassium 3.9 Chloride 108 H Carbon Dioxide 28 BUN 10 Creatinine 0.84 Glucose 135 H Calcium 8.9 - ABG Interpretation ABG results: PT/INR, D-dimer PT 11.2 Seconds (9.4-12.1) 01/26/18 19:32 Consult Discharge Plan - Plan Referrals: Cole Bryant CNP [Primary Care Provider] - 02/03/18 10:00 am
[2018-01-28] MEDS: Melatonin 3 MG TABLET PO SCH (22:08)
[2018-01-29] MEDS: *HR* Heparin 5,000 UNIT/ML VIAL SQ SCH ×3 (06:31→21:17)
[2018-01-29] MEDS: Acetaminophen 325 MG TABLET PO PRN (06:44)
[2018-01-29] MEDS: Budesonide/Formoterol 80/4.5 MDI IH SCH ×2 (07:55→22:32)
[2018-01-29] MEDS: Multivit/Ca/Min/Fe/FA 1 TAB TABLET PO SCH (08:30)
[2018-01-29] MEDS: Furosemide 20 MG TABLET PO SCH (08:31)
[2018-01-29] MEDS: Gabapentin 400 MG CAPSULE PO SCH ×4 (08:31→21:08)
[2018-01-29] MEDS: Folic Acid 1 MG TABLET PO SCH (08:31)
[2018-01-29] MEDS: Aspirin 81 MG TAB.CHEW PO SCH (08:31)
[2018-01-29] MEDS: rOPINIRole 1 MG TABLET PO SCH ×2 (08:32→21:06)
--- NOTE | 2018-01-29 09:17 | Cardiology Consult Note ---
<Glenn Reyes - Last Filed: 01/29/18 10:38> Date of Encounter: 01/29/18 Time of Encounter: 09:15 Assessment and Plan (1) Abnormal nuclear stress test Current Visit: Yes Status: Acute Per Cardiology: Atypical presentation with symptoms occurring at rest. Trops negative x 2. Non -exercise nuclear stress test results noted: Impression: Increased bowel wall uptake obscuring the inferior wall. Possible mild intensity stress perfusion defect involving the apical inferior wall in which mild ischemia cannot be excluded. Pharmacologic stress ECG is non diagnostic for ischemia due to baseline paced rhythm. Gated EF = 59%. Per review of records patient had apparent catheterization at [facility] in 2012 with normal coronaries. Recent echo August 2017 showed EF improved from 40% at [facility] in June 2016 up to 55-60% at that time. I had lengthy discussion with patient and family, at this point agreeable for outpatient monitoring and follow -up with primary neurosurgery research director. Can evaluate if further ischemic evaluation appropriate in outpatient setting. We discussed potential catheterization, however they prefer to monitor and observe. On aspirin, statin, beta chris. Will discuss with Dr. Saleh, cardiology will s/o, re-consult PRN, f/u with her primary neurosurgery research director. Discussion w patient/family: The assessment and plan as outlined above was discussed with the patient and/or family members who expressed understanding and agreement. All questions were answered. Thank you for involving us in the care of your patient. Please call with any questions. History of Present Illness Consult date: 01/29/18 Requesting physician: Morgan Luther Consult reason: +ST Chief complaint: CP History of present illness: Ms. Lazo is a 52 year old female with a relevant past medical history of hypertension, hyperlipidemia, past nicotine abuse, "sarcoid" followed by [facility] Duarte with ICD-- had recent BUTCHER HEAD-D upgrade at [facility] 08/2017. Seen by cardiology during hospital stay August 2017 with mild troponin elevation in setting of a KI, pneumonia, and small bowel obstruction. Follows with [facility]. Cardiology consult for abnormal stress test results. Patient seen with family at bedside. Reports Tuesday developed left-sided heaviness/pressure that lasted for a few hours at rest. Patient reports no chest pain symptoms prior to this event. She does report history of reflux with epigastric burning that has improved recently with recent medication adjustments. She does report slight increase overall short of breath at rest and with exertion. Denies any current edema. Reports recently completed prednisone by pulmonology at [facility] for "sarcoid". Denies any ICD shocks or fires. Reports all her primary neurosurgery research director about 2 weeks ago and started on ARB. Currently chest pain-free. Past Med Surg Social Fam HX - Past Medical History Attestation: Yes The following information was validated with the patient. Source: patient, old records reviewed, obtained from family Medical history: hyperlipidemia, hypertension, renal disease Psychiatric history: anxiety - Past Surgical History Surgical History: cholecystectomy, hysterectomy, LYNNE/BSO, AICD - Social History Smoking Status: Former smoker Smokeless Tobacco Status: No Alcohol use: none Drug use: none - Family History Brother Family Member Ethnicity: Non- Living Status: Still Living Hx Family Endocrine Disorder: Yes Mother Family Member Ethnicity: Non- Living Status: Still Living Hx Family Respiratory Disorders: Yes (Asthma) Hx Family Neuromuscular Disorders: Yes Father Family Member Ethnicity: Non- Living Status: Still Living Hx Family Cardiac Disorders: Yes Hx Family Respiratory Disorders: No Hx Family GI Disorders: Yes Medications and Allergies Aspirin 81 mg PO DAILY 05/09/15 [History] Atorvastatin [Lipitor] 10 mg PO HS 05/09/15 [History] Furosemide [Lasix] 20 mg PO DAILY 05/09/15 [History] Metoprolol XL (24 HR) Succ [Toprol XL] 25 mg PO HS 05/09/15 [History] Ropinirole HCl [Requip] 2 mg PO HS 02/01/16 [History] Diclofenac Sodium [Voltaren] 75 mg PO BID PRN 01/14/17 [History] Melatonin [Melatin] 9 mg PO HS 07/08/17 [History] Omeprazole [PriLOSEC] 40 mg PO DAILY 07/08/17 [History] Potassium Chloride [K-Tab ER] 20 meq PO Q48H 07/08/17 [History] Amitriptyline [Elavil] 10 - 20 mg PO HS PRN 09/15/17 [History] Folic Acid 1 mg PO DAILY 09/15/17 [History] Methotrexate [Otrexup] 12.5 mg PO TH 09/15/17 [History] Mv,Fe,Min/Lutein [A Thru Z [employer] Tablet] 1 tab PO DAILY 09/15/17 [ History] Ipratropium/Albuterol Neb [Duoneb] 3 ml IH [id number] PRN 30 Days #10 inhsol [Rx] Promethazine [Phenergan] 12.5 mg PO Q6HR PRN #30 tablet 09/18/17 [Rx] DULoxetine [Cymbalta] 30 mg PO DAILY 01/26/18 [History] Fluticasone/Vilanterol [Breo Ellipta 200-25 Mcg INH] 1 puff IH DAILY 01/26/18 [ History] Gabapentin [Neurontin] 800 mg PO TID 01/26/18 [History] Losartan [Cozaar] 25 mg PO DAILY 01/26/18 [History] 3 Allergy/AdvReac Type Severity Reaction Status Date / Time nitrofurantoin AdvReac Mild Rash Verified 11/28/17 11:21 [From Macrobid] All Systems Review: The remainder of the systems were reviewed and are negative - Cardiovascular Cardiovascular: as per HPI, chest pain at rest, dyspnea at rest, dyspnea on exertion Physical Examination Vital Signs, Last 4 Hours Temp Pulse Resp BP Pulse Ox 01/29/18 07:55 16 93 01/29/18 06:47 98.0 F 79 16 101/66 93 General: Conversant, No Apparent Distress HEENT: Atraumatic, Normocephaly, Mucus Membranes Moist Neck: No JVD, Normal carotid pulses Cardiac: Reg Rate and Rhythm, Normal S1 and S2, No Murmur Lungs: Normal Breath Sounds, No Wheeze, Rales, Rhonchi Neuro: Alert and responsive, No focal deficits noted Abdomen: Soft, Non-Tender, Other (obese) Skin: No rashes noted on visualized skin Musculoskeletal: No Chest Wall Tenderness Extremities: No Clubbing, No Cyanosis, No Edema, Normal Pulses Results 01/27/18 01:37 01/28/18 06:36 Laboratory Tests 01/26/18 01/26/18 01/27/18 19:32 19:32 01:37 INR 1.0 Troponin I < 0.03 < 0.03 LDL Cholesterol, Calc TSH 01/27/18 01:37 INR Troponin I LDL Cholesterol, Calc 45 TSH 2.750 ITS Impressions Chest X-Ray 01/26/18 19:29 IMPRESSION: Stable portable study. D/ / Jaja Sanchez Cha, MD / Jaja Sanchez Cha, MD Interpreting Provider: Jaja Sanchez Cha, MD Active Medications Acetaminophen (Tylenol) 650 mg PO Q6HR PRN PRN Reason: Mild Pain/Fever Stop: 07/28/18 21:08 Last Admin: 01/29/18 06:44 Dose: 650 mg Albuterol/Ipratropium (Duoneb) 3 ml IH [id number] PRN PRN Reason: wheezing Stop: 07/28/18 21:09 Amitriptyline HCl (Elavil) 10 mg PO HS PRN PRN Reason: Insomnia Stop: 07/28/18 21:09 Last Admin: 01/27/18 02:54 Dose: 10 mg Aspirin (Aspirin) 81 mg PO DAILY ANDREA Stop: 07/29/18 09:01 Last Admin: 01/29/18 08:31 Dose: 81 mg Atorvastatin Calcium (Lipitor) 10 mg PO HS ANDREA Stop: 07/28/18 23:39 Last Admin: 01/28/18 22:07 Dose: 10 mg Budesonide/Formoterol Fumarate (Symbicort) 2 puff IH BIDR ANDREA PRN Reason: Protocol Stop: 07/29/18 22:01 Last Admin: 01/29/18 07:55 Dose: 2 puff Duloxetine HCl (Cymbalta) 30 mg PO DAILY ANDREA Stop: 07/29/18 21:16 Last Admin: 01/29/18 08:30 Dose: 30 mg Folic Acid (Folic Acid) 1 mg PO DAILY ANDREA Stop: 07/29/18 09:01 Last Admin: 01/29/18 08:31 Dose: 1 mg Furosemide (Lasix) 20 mg PO DAILY ANDREA Stop: 07/29/18 09:01 Last Admin: 01/29/18 08:31 Dose: 20 mg Gabapentin (Neurontin) 800 mg PO TID ANDREA Stop: 07/28/18 23:46 Last Admin: 01/29/18 08:31 Dose: 800 mg Heparin Sodium (Porcine) (Heparin) 5,000 unit SQ Q8HCO ANDREA Stop: 07/28/18 22:01 Last Admin: 01/29/18 06:31 Dose: 5,000 unit Melatonin (Melatonin) 9 mg PO HS [facility] Stop: 07/28/18 23:34 Last Admin: 01/28/18 22:08 Dose: 9 mg Methotrexate (Otrexup) 12.5 mg PO QWEEK [facility] Stop: 07/28/18 23:46 Last Admin: 01/27/18 00:24 Dose: 12.5 mg Metoprolol Succinate (Toprol Xl) 25 mg PO HS [facility] Stop: 07/28/18 23:35 Last Admin: 01/26/18 23:49 Dose: 25 mg Multivitamins/Calcium (Thera M Plus) 1 tab PO DAILY ANDRE[facility] Stop: 07/29/18 09:01 Last Admin: 01/29/18 08:30 Dose: 1 tab Naloxone HCl (Narcan) 0.4 mg IVP Q2MIN PRN PRN Reason: SEE COMMENTS Stop: 07/28/18 21:08 Nitroglycerin (Nitroglycerin) 0.4 mg SL Q5MIN PRN PRN Reason: Chest Pain Stop: 07/28/18 20:02 Last Admin: 01/26/18 20:41 Dose: 0.4 mg Omeprazole (Prilosec) 40 mg PO 0630 ANDREA Stop: 07/29/18 06:31 Last Admin: 01/29/18 06:31 Dose: 40 mg Ondansetron HCl (Zofran) 4 mg IVP Q6HR PRN; Protocol PRN Reason: Nausea Stop: 07/29/18 18:51 Last Admin: 01/27/18 20:43 Dose: 4 mg Ropinirole HCl (Requip) 2 mg PO HS [facility] Stop: 07/28/18 23:32 Last Admin: 01/28/18 22:08 Dose: 2 mg Ropinirole HCl (Requip) 1 mg PO DAILY [facility] Stop: 07/29/18 12:01 Last Admin: 01/29/18 08:32 Dose: 1 mg - Imaging and Cardiology Stress Test: report reviewed Echo: report reviewed - EKG Interpretation EKG results cardiology: personally reviewed (Paced in the 80s), normal ECG, sinus rhythm Consult Discharge Plan - Plan Referrals: Cole Bryant, MANAGER DISCOVERY [Primary Care Provider] - 02/03/18 10:00 am <Tiara Saleh - Last Filed: 01/29/18 12:36> Date of Encounter: 01/29/18 - Attending Attestation I examined this patient and my medical decision-making was reviewed with the MANAGER DISCOVERY. I agree with the documented findings, disposition and treatment plan as described. Ms. Lazo presents with atypical chest discomfort and negative troponins. Has history of normal coronaries by cath in 2013 and NICM. She generally follows with [facility]. She had a stress test here demonstrating artifact in the inferior wall - ischemic could not be excluded. Lengthy discussion with patient and family. Recommend observation at this time. She would like to follow up with her primary Loader for further recommendations. Continue asa, statin, BB. Will sign off. Advised to seek emergent medical attention if patient experiences worsening chest pain symptoms. Patient expressed understanding and agreement. Assessment and Plan Discussion w patient/family: The assessment and plan as outlined above was discussed with the patient and/or family members who expressed understanding and agreement. All questions were answered. Thank you for involving us in the care of your patient. Please call with any questions. History of Present Illness History of present illness: Ms. Lazo is a 52 year old female All Systems Review: The remainder of the systems were reviewed and are negative Physical Examination Vital Signs, Last 4 Hours Temp Pulse Resp BP Pulse Ox 01/29/18 10:42 97.6 F 76 16 124/79 93 Results 01/27/18 01:37 01/28/18 06:36
[2018-01-29] MEDS ORDERED: Isovue-370 500 ML INFUS..BTL IV ONE (11:24)
[2018-01-29] MEDS: Ondansetron 4 MG/2 ML VIAL IVP PRN (11:26)
[2018-01-29] MEDS ORDERED: MOM Conc 10 ML UD.LIQ PO ONE (15:50)
--- NOTE | 2018-01-29 17:51 | Internal Med Progress Note ---
Date of Encounter: 01/29/18 Time of Encounter: 11:00 - Assessment and plan (1) Constipation by delayed colonic transit Current Visit: Yes Status: Acute Assessment and plan: Pt is without bowel movement for multiple days (even before coming here). Has hx of bowel obstruction. Will check CT abd/pelvis to r/o new obstruction. If negative will give cathartic to mobilize bowels. I realize pt is many days in observation but I believe that if she leaves today with no BM and continued nausea she return and be a readmission. (2) Chest pain Current Visit: No Status: Suspected Assessment and plan: Appreciate cardiology input. Appears will follow with her utilization reviewer as outpatient and plan any further work up. Qualifiers: Chest pain type: chest pain due to myocardial ischemia Ischemic chest pain type: stable angina pectoris Qualified Code(s): I20.8 - Other forms of angina pectoris (3) Sarcoidosis Current Visit: No Status: Chronic Assessment and plan: History of known sarcoidosis taking methotrexate. -Continue home methotrexate (4) HTN (hypertension) Current Visit: No Status: Chronic Assessment and plan: Chronic issue Continue home medications. Qualifiers: Hypertension type: essential hypertension Qualified Code(s): I10 - Essential (primary) hypertension (5) HLD (hyperlipidemia) Current Visit: No Status: Chronic Assessment and plan: Continue statin Qualifiers: Hyperlipidemia type: mixed hyperlipidemia Qualified Code(s): E78.2 - Mixed hyperlipidemia (6) Pacemaker Current Visit: No Status: Chronic Assessment and plan: pacemaker for Third degree heart block (7) RLS (restless legs syndrome) Current Visit: No Status: Chronic Assessment and plan: Continue home treatment. (8) Morbid obesity with BMI of 40.0-44.9, adult Current Visit: Yes Status: Chronic Assessment and plan: Chronic issue (9) Diastolic CHF Current Visit: Yes Status: Chronic Assessment and plan: No symptoms at this time. Qualifiers: Heart failure chronicity: chronic Qualified Code(s): I50.32 - Chronic diastolic (congestive) heart failure (10) DVT prophylaxis Current Visit: No Status: Acute Assessment and plan: Heparin subcutaneous - Time Spent With Patient Total time spent is greater than 50% in coordination of care (as documented) at patient's floor/unit and/or counseling patient: - Subjective Interval history: Ms Lazo is currently in observation for chest pain. She remains moderate to high risk. Ms Lzao is having a lot of nausea. She has not had a bowel movement in days. She has a prior history of bowel obstruction requiring decompression with NG. - Constitutional Vitals: Temp Pulse Resp BP Pulse Ox 98.0 F 86 16 112/75 93 01/29/18 14:40 01/29/18 14:40 01/29/18 14:40 01/29/18 14:40 01/29/18 14:40 General appearance: Present: A&O X 3, pleasant, answers questions appropriately - Head Head exam: Present: normocephalic - Eye Eye exam: Present: conjuntiva pink - ENT ENT exam: Present: mucous membranes dry - Respiratory Respiratory exam: Present: CTAB. Absent: rales, rhonchi, wheezes - Cardiovascular Cardiovascular exam: Present: RRR. Absent: tachycardia - GI/Abdominal GI/Abdominal exam: Present: distended, hypoactive bowel sounds, soft. Absent: tenderness - Extremities Exam Extremities exam: Present: warm. Absent: tenderness - Neurological Exam Neurological exam: Present: alert, oriented X3 - Skin Skin exam: Present: dry, warm Internal Medicine: Result - Labs CBC & Chem 7: 01/27/18 01:37 01/28/18 06:36 - ABG Interpretation ABG results: PT/INR, D-dimer PT 11.2 Seconds (9.4-12.1) 01/26/18 19:32 - Impressions Impressions Abdomen/Pelvis CT 01/29/18 15:00 IMPRESSION: No acute or focal findings are seen to the abdomen or pelvis to explain the patient's symptoms. Diffuse fatty infiltration of the liver. Nonobstructing stone to the lower pole of the right kidney. D/ / 01/29/2018 15:39:44 Huy Ford MD / [email or web address] Interpreting Provider: Huy Ford MD Consult Discharge Plan - Plan Referrals: Cole Bryant CNP [Primary Care Provider] - 02/03/18 10:00 am
[2018-01-29] MEDS ORDERED: Bisacodyl 10 MG RECTAL SUPPOSITORY RC PRN (17:58)
[2018-01-29] MEDS: Melatonin 3 MG TABLET PO SCH (21:08)
[2018-01-29] MEDS: Metoprolol XL (24 HR) Succ 25 MG TAB.ER.24H PO SCH (21:08)
[2018-01-30] MEDS: *HR* Heparin 5,000 UNIT/ML VIAL SQ SCH (05:31)
[2018-01-30 06:59] VITALS: BP 131/82
[2018-01-30] MEDS: Budesonide/Formoterol 80/4.5 MDI IH SCH (07:32)
[2018-01-30] MEDS: Gabapentin 400 MG CAPSULE PO SCH (08:33)
[2018-01-30] MEDS: Folic Acid 1 MG TABLET PO SCH (08:34)
[2018-01-30] MEDS: Aspirin 81 MG TAB.CHEW PO SCH (08:34)
[2018-01-30] MEDS: rOPINIRole 1 MG TABLET PO SCH (08:34)
[2018-01-30] MEDS: Furosemide 20 MG TABLET PO SCH (08:34)
[2018-01-30] MEDS: Multivit/Ca/Min/Fe/FA 1 TAB TABLET PO SCH (08:34)
[2018-01-30] MEDS ORDERED: (Fluticasone/Vilanterol [Breo Ellipta 200-25 Mcg Inh] IH SCH (09:00)
[2018-01-30] MEDS: Ondansetron 4 MG/2 ML VIAL IVP PRN (11:12)
--- NOTE | 2018-01-30 11:15 | Discharge Summary ---
- NOTES TO OUTPATIENT PROVIDER Notes to Outpatient Provider: Admitted with chest pain and had abnormal stress test. Has significant constipation and daytime fatigue. TSH normal. Date of Encounter: 01/30/18 Time of Encounter: 11:13 - Discharge Diagnosis (1) Chest pain Priority: Primary Status: Suspected Qualifiers: Chest pain type: chest pain due to myocardial ischemia Ischemic chest pain type: stable angina pectoris Qualified Code(s): I20.8 - Other forms of angina pectoris (2) Constipation by delayed colonic transit Priority: Secondary Status: Chronic (3) Sarcoidosis Priority: Secondary Status: Chronic (4) HLD (hyperlipidemia) Priority: Secondary Status: Chronic Qualifiers: Hyperlipidemia type: mixed hyperlipidemia Qualified Code(s): E78.2 - Mixed hyperlipidemia (5) Abnormal nuclear stress test Priority: Secondary Status: Acute (6) GERD (gastroesophageal reflux disease) Priority: Secondary Status: Chronic Qualifiers: Esophagitis presence: esophagitis presence not specified Qualified Code(s) : K21.9 - Gastro-esophageal reflux disease without esophagitis (7) Chronic nausea Priority: Secondary Status: Chronic (8) HTN (hypertension) Priority: Secondary Status: Chronic Qualifiers: Hypertension type: essential hypertension Qualified Code(s): I10 - Essential (primary) hypertension (9) Diastolic CHF Priority: Secondary Status: Chronic Qualifiers: Heart failure chronicity: chronic Qualified Code(s): I50.32 - Chronic diastolic (congestive) heart failure (10) Morbid obesity with BMI of 40.0-44.9, adult Priority: Secondary Status: Chronic (11) RLS (restless legs syndrome) Priority: Secondary Status: Chronic (12) Pacemaker Priority: Secondary Status: Chronic Hospital course: Ms. Lazo is a 52 year old female with hx of cardiac disease presented to ED with chest discomfort. She was evaluated and subsequently placed in the hospital for further work up. Ms Lazo was placed in observation for chest discomfort. She was ordered stress test that required 2 days to complete. Results returned possible mild ischemia. She was seen by cardiology and it was decided that she would follow up with her cardiology at [facility]. We will send stress results. She is also having issues with persistent nausea. She had prior hx of bowel obstruction so CT was done which was negative. She had significant constipation and multiple meds given. Today she is afebrile. She has had small BM. She is ready for discharge home and follow up with PCP regarding nausea and constipation. Discharge discussed with: patient, family, nurse - Time Spent with Patient Total time spent providing and/or coordinating discharge services: 39min - Discharge Medications Prescriptions: Nitroglycerin 0.4 mg SL Q5MIN PRN #1 bottle PRN Reason: Chest Pain Sennosides/Docusate Sodium [Senna Plus] 1 each PO BID #60 tablet Home Medications: Aspirin 81 mg PO DAILY 05/09/15 [History] Atorvastatin [Lipitor] 10 mg PO HS 05/09/15 [History] Furosemide [Lasix] 20 mg PO DAILY 05/09/15 [History] Metoprolol XL (24 HR) Succ [Toprol XL] 25 mg PO HS 05/09/15 [History] Ropinirole HCl [Requip] 2 mg PO HS 02/01/16 [History] Diclofenac Sodium [Voltaren] 75 mg PO BID PRN 01/14/17 [History] Melatonin [Melatin] 9 mg PO HS 07/08/17 [History] Omeprazole [PriLOSEC] 40 mg PO DAILY 07/08/17 [History] Potassium Chloride [K-Tab ER] 20 meq PO Q48H 07/08/17 [History] Amitriptyline [Elavil] 10 - 20 mg PO HS PRN 09/15/17 [History] Folic Acid 1 mg PO DAILY 09/15/17 [History] Methotrexate [Otrexup] 12.5 mg PO TH 09/15/17 [History] Mv,Fe,Min/Lutein [A Thru Z [employer] Tablet] 1 tab PO DAILY 09/15/17 [ History] Ipratropium/Albuterol Neb [Duoneb] 3 ml IH [id number] PRN 30 Days #10 inhsol [Rx] Promethazine [Phenergan] 12.5 mg PO Q6HR PRN #30 tablet 09/18/17 [Rx] DULoxetine [Cymbalta] 30 mg PO DAILY 01/26/18 [History] Fluticasone/Vilanterol [Breo Ellipta 200-25 Mcg INH] 1 puff IH DAILY 01/26/18 [ History] Gabapentin [Neurontin] 800 mg PO TID 01/26/18 [History] Losartan [Cozaar] 25 mg PO DAILY 01/26/18 [History] Nitroglycerin 0.4 mg SL Q5MIN PRN #1 bottle 01/30/18 [Rx] Sennosides/Docusate Sodium [Senna Plus] 1 each PO BID #60 tablet 01/30/18 [Rx] rOPINIRole [Requip] 1 mg PO DAILY tablet 01/30/18 [Rx] Allergies/Adverse Reactions: 3 Allergy/AdvReac Type Severity Reaction Status Date / Time nitrofurantoin AdvReac Mild Rash Verified 11/28/17 11:21 [From Macrobid] Date of admission: 01/26/18 22:12 Primary care physician: Cole Bryant CNP Consults: 01/28/18 11:27 Consult to Cardiology [CONS] Routine Comment: Consulting Provider: [facility] [place] Reason for Consult: Abnormal stress test Time Notified: 11:25 Call Completed: Yes Discharging clinician: Morgan Luther Anticipated date of discharge: 01/30/18 - Constitutional Vitals: Temp Pulse Resp BP Pulse Ox 97.6 F 74 16 131/82 91 01/30/18 06:51 01/30/18 06:51 01/30/18 07:32 01/30/18 06:51 01/30/18 07:32 General appearance: Present: A&O X 3, pleasant, answers questions appropriately - Head Head exam: Present: normocephalic - Eye Eye exam: Present: conjuntiva pink - ENT ENT exam: Present: mucous membranes dry - Respiratory Respiratory exam: Present: CTAB. Absent: rales, rhonchi, wheezes - Cardiovascular Cardiovascular exam: Present: RRR. Absent: tachycardia - GI/Abdominal GI/Abdominal exam: Present: soft. Absent: tenderness - Extremities Exam Extremities exam: Present: warm. Absent: tenderness - Neurological Exam Neurological exam: Present: alert, oriented X3, no focal deficits - Skin Skin exam: Present: dry, warm - Patient Status Disposition: Home, Self-Care Condition: Good Functional capacity at discharge: independent ambulation Overall status at discharge: patient is progressing back to baseline - Discharge Instructions Follow Up With: Cole Bryant CNP [Primary Care Provider] - 02/03/18 10:00 am - Diet and Activity Activity: increase activity as tolerated Diet: advance to your usual diet
[2018-02-02] MEDS ORDERED: *HR* Methotrexate 2.5 MG TABLET PO SCH (15:50)
== END 2018-01-30 12:39 | disposition home or self-care (01) ==
LOC: 3ANU 19:06 → EMEROO 19:06 → SUATTDRO 22:12 → 3ANU 22:28
PROVIDERS: ADMIT Internal Medicine; ATTEND Internal Medicine

== ENCOUNTER 2018-06-16 22:31 | Observation (INO) ==
[2018-06-16 23:23] LABS: Basophils # 0.1 K/mcL (0.0-0.2); Basophils % 0.6 %; Eosinophils # 0.5 K/mcL (0.0-0.6); Eosinophils % 4.6 %; Hematocrit 44.2 % (35.3-44.9); Hemoglobin 14.2 g/dL (11.5-15.4); Immature Granulocytes % 0.4 % (0-4); Lymphocytes # 2.2 K/mcL (0.6-4.6); Lymphocytes % 21.7 %; Mean Corpuscular HGB Conc 32.1 g/dL (31.6-35.5); Mean Corpuscular Hemoglobin 29.2 pg (28.0-33.3); Mean Corpuscular Volume 90.8 fL (83.0-100.0); Mean Platelet Volume 9.1 fL (9.4-12.4); Monocytes # 0.7 K/mcL (0.0-1.3); Monocytes % 6.9 %; Neutrophils # 6.5 K/mcL (1.6-8.9); Platelet Count 395 K/mcL (140-400); Red Blood Count 4.87 M/mcL (3.82-4.97); Red Cell Distribution Width 14.9 % (11.5-14.5); Segmented Neutrophils % 65.8 %
[2018-06-16 23:45] LABS: BUN/Creatinine Ratio 9 (6-26); Blood Urea Nitrogen 8 mg/dL (6-20); Calcium 9.9 mg/dL (8.6-10.3); Carbon Dioxide 28 mEq/L (23-29); Chloride 104 mEq/L (98-107); Glucose 94 mg/dL (70-105); Osmolality,Calculated 284 (280-300); Potassium 3.7 mEq/L (3.5-5.1); Sodium 138 mEq/L (136-145); eGFR For Non-African Americans > 60 (> 60)
[2018-06-16 23:46] LABS: Troponin I < 0.03 ng/mL (< 0.04)
[2018-06-17] MEDS ORDERED: Aspirin 325 MG TABLET PO ONE (00:41)
[2018-06-17] MEDS ORDERED: Nitroglycerin 0.4 MG TAB.SUBL SL PRN ×2 (00:41→05:13)
--- NOTE | 2018-06-17 00:44 | Emergency Department Note ---
Disposition Clinical Impression: Chest pain Qualifiers: Chest pain type: other chest pain Qualified Code(s): R07.89 - Other chest pain ; R07.8 - Other chest pain Disposition: Admitted As Inpatient Condition: Good Referrals: Cole Bryant CNP [Primary Care Provider] - Forms: ED Satisfaction Letter Time of Disposition: 00:50 General Adult HPI - General Chief complaint: ED Chest Pain Stated complaint: CP/nausea Time Seen by Provider: 06/16/18 23:50 Source: patient Limitations: no limitations Nursing Notes Reviewed: Yes Vital Signs Reviewed: Yes - History of Present Illness HPI Narrative: Female patient presenting simmers problem complaining of a two-day history of chest pain this is been intermittent. 2 nights ago she woke up in a sweat with chest pain. This woke her up from a sleep. She states that she got tried again to the floor to get cooled off because she was so hot. This ended up going away after 20 minutes. However did return today and has been present all day. She is Pain Is in the Center of Her Chest. No Radiation. Does Have Associated Shortness of Breath with the Pain. Has Had Several Episodes of Diaphoresis. She Has No History of an MO However Does Have a Ventricular Pacemaker. Does Have a History of CHF However Has Never Had an MO before. Concerned That This Could Possibly Be a Small Bowel Obstruction and She Had Some Chest Pain with That As Well However She States That She Does Not Have Any Abdominal Pain and the Last Time When She Had a Small Bowel Checked and She Had Significant Amount of Vomiting She Denies Any Fevers or Chills. Denies Any Swelling to Her Extremities. Did attempt Maalox and Tums with no relief of the pain. Pain Scale: 6 - Related Data Home Medications Medication Instructions Recorded Confirmed Aspirin 81 mg PO DAILY 05/09/15 01/26/18 Atorvastatin [Lipitor] 10 mg PO HS 05/09/15 01/26/18 Furosemide [Lasix] 20 mg PO DAILY 05/09/15 01/26/18 Metoprolol XL (24 HR) Succ [Toprol 25 mg PO HS 05/09/15 01/26/18 XL] Ropinirole HCl [Requip] 2 mg PO HS 02/01/16 01/26/18 Diclofenac Sodium [Voltaren] 75 mg PO BID PRN 01/14/17 01/26/18 Melatonin [Melatin] 9 mg PO HS 07/08/17 01/26/18 Omeprazole [PriLOSEC] 40 mg PO DAILY 07/08/17 01/26/18 Potassium Chloride [K-Tab ER] 20 meq PO Q48H 07/08/17 01/26/18 Amitriptyline [Elavil] 10 - 20 mg PO HS PRN 09/15/17 01/26/18 Folic Acid 1 mg PO DAILY 09/15/17 01/26/18 Methotrexate [Otrexup] 12.5 mg PO TH 09/15/17 01/26/18 Mv,Fe,Min/Lutein [A Thru Z Select 1 tab PO DAILY 09/15/17 01/26/18 Women's Tablet] DULoxetine [Cymbalta] 30 mg PO DAILY 01/26/18 01/26/18 Fluticasone/Vilanterol [Breo 1 puff IH DAILY 01/26/18 01/26/18 Ellipta 200-25 Mcg INH] Gabapentin [Neurontin] 800 mg PO TID 01/26/18 01/26/18 Losartan [Cozaar] 25 mg PO DAILY 01/26/18 01/26/18 Previous Rx's Medication Instructions Recorded Ipratropium/Albuterol Neb [Duoneb] 3 ml IH [id number] PRN 30 Days #10 09/18/17 inhsol Promethazine [Phenergan] 12.5 mg PO Q6HR PRN #30 tablet 09/18/17 Nitroglycerin 0.4 mg SL Q5MIN PRN #1 bottle 01/30/18 Sennosides/Docusate Sodium [Senna 1 each PO BID #60 tablet 01/30/18 Plus] rOPINIRole [Requip] 1 mg PO DAILY tablet 01/30/18 Allergies Allergy/AdvReac Type Severity Reaction Status Date / Time nitrofurantoin AdvReac Mild Rash Verified 11/28/17 11:21 [From Macrobid] All systems ED: reviewed and negative except as stated. Review of Systems: As Per HPI Constitutional: Denies: fever, chills ENT ED: Denies: congestion Cardiovascular: Reports: chest pain (Center of her chest. No radiation). Denies: palpitations, syncope Respiratory: Reports: dyspnea (Associated with the chest pain). Denies: cough Gastrointestinal: Reports: nausea, diarrhea (this Morning.). Denies: abdominal pain, vomiting, hematemesis, melena, hematochezia Genitourinary: Denies: urgency, dysuria, frequency, hematuria Integumentary: Denies: rash Past Medical History - Past Medical History Attestation: Yes The following information was validated with the patient. Source: patient Medical history: Reports: hyperlipidemia, hypertension, renal disease Surgical history: Reports: cholecystectomy, hysterectomy, LYNNE/BSO, AICD Psychiatric history: Reports: anxiety COOK SOUP history: Reports: no COOK SOUP history - Social History Smoking Status: Former smoker Smokeless Tobacco Status: No Alcohol use: Reports: none Drug use: Reports: none Physical Exam - General Limitations: no limitations General appearance: alert, in no apparent distress - Head Head exam: atraumatic, normocephalic, normal inspection - Eye Eye exam: Present: normal appearance, PERRL, EOMI - ENT ENT exam: normal exam, normal oropharynx, mucous membranes moist - Neck Neck exam: Present: normal inspection, full ROM, trachea midline - Chest Chest inspection: Present: normal inspection, symmetric chest wall rise. Absent : tenderness - Respiratory Respiratory exam: Present: normal lung sounds bilaterally. Absent: respiratory distress, accessory muscle use - Cardiovascular Cardiovascular exam: Present: regular rate, normal rhythm, normal heart sounds - Abdominal Exam Abdominal exam: Present: soft, Non-Tender. Absent: tenderness, distention, guarding, rebound, rigidity, organomegaly, Gann's sign, Rovsing's sign, tenderness at McBurney's Point - Extremities Exam Extremities exam: Present: normal inspection, full ROM, normal capillary refill. Absent: tenderness, pedal edema - Neurological Exam Neurological exam: Present: alert, oriented X3 - Psychiatric Psychiatric exam: Present: normal affect, normal mood - Skin Skin exam: Present: warm, dry, intact, normal color. Absent: rash, diaphoresis Course Course Narrative: Patient with chest pain. Does have a history of congestive heart failure but no MO. Does have a pacemaker placed. No signs of a STEMI on her EKG. Troponin is negative. Pain is present whenever she got simmers is still present on exam. Not reproducible with palpation. Does have diaphoresis associated with it but not while here. Is also nauseated with this pain. Nitroglycerin trauma patient and admit her to the hospital. We will also give her aspirin. She is agreeable to this. - Consultations Consultation #1: Dr Hensley accepted Pt in stable condition. Time: 00:50 Vital Signs Temperature 97.8 F 06/16/18 22:35 Pulse Rate 92 06/16/18 22:35 Respiratory Rate 16 06/16/18 22:35 Blood Pressure 125/82 06/16/18 22:35 O2 Sat by Pulse Oximetry 95 06/16/18 22:35 Temperature 97.8 F 06/16/18 22:35 Pulse Rate 81 06/16/18 23:58 Respiratory Rate 16 06/16/18 23:58 Blood Pressure 130/82 06/16/18 23:58 O2 Sat by Pulse Oximetry 95 06/16/18 23:58 Oxygen Delivery Oxygen Delivery Room Air Medical Decision Making - Medical Records Medical records reviewed: Yes I reviewed the patient's medical records. - Lab Data Lab results reviewed: Yes I reviewed the patient's lab results. Result diagrams: 06/16/18 23:05 06/16/18 23:05 Lab Results 06/16/18 06/16/18 Range/Units 23:05 23:05 WBC 9.9 (4.3-11.1) K/mcL RBC 4.87 (3.82-4.97) M/mcL Hgb 14.2 (11.5-15.4) g/dL Hct 44.2 (35.3-44.9) % MCV 90.8 (83.0-100.0) fL MCH 29.2 (28.0-33.3) pg MCHC 32.1 (31.6-35.5) g/dL RDW 14.9 H (11.5-14.5) % Plt Count 395 (140-400) K/mcL MPV 9.1 L (9.4-12.4) fL Immature Gran % 0.4 (0-4) % Seg Neutrophils % 65.8 % Lymphocytes % 21.7 % Monocytes % 6.9 % Eosinophils % 4.6 % Basophils % 0.6 % Neutrophils # 6.5 (1.6-8.9) K/mcL Lymphocytes # 2.2 (0.6-4.6) K/mcL Monocytes # 0.7 (0.0-1.3) K/mcL Eosinophils # 0.5 (0.0-0.6) K/mcL Basophils # 0.1 (0.0-0.2) K/mcL Sodium 138 (136-145) mEq/L Potassium 3.7 (3.5-5.1) mEq/L Chloride 104 (98-107) mEq/L Carbon Dioxide 28 (23-29) mEq/L BUN 8 (6-20) mg/dL Creatinine 0.87 (0.60-1.20) mg/dL Est GFR ( Amer) > 60 (> 60) Est GFR (Non-Af Amer) > 60 (> 60) BUN/Creatinine Ratio 9 (6-26) Glucose 94 (70-105) mg/dL Calculated Osmolality 284 (280-300) Calcium 9.9 (8.6-10.3) mg/dL Troponin I < 0.03 (< 0.04) ng/mL - Radiology Data Radiology results reviewed: Yes I reviewed the patient's radiology results. Chest X-Ray 06/16/18 22:42 IMPRESSION: Stable study D/ / Jaja Sanchez Cha, MD / Jaja Sanchez Cha, MD Interpreting Provider: Jaja Sanchez Cha, MD - EKG Data EKG #1 EKG attestation: Yes I reviewed and interpreted this EKG. EKG results narrative: Ventricularly paced rhythm at a rate of 91. KS interval is 125. Respirations 149. QT is 370. QTC is 427. Patient does not meet scarbosa criteria. Of acute ischemia. No significant change from previous EKG dated 01/26/2018. Heart Score - Score History: Moderately Suspicious EKG: Non Specific repolarisation Disturbance Age: 45-65 Risk Factors: 1-2 risk factors Troponin: Less than normal limit HEART Score Total: 4
[2018-06-17] MEDS ORDERED: Acetaminophen 325 MG TABLET PO PRN (05:10)
[2018-06-17] MEDS ORDERED: Naloxone 0.4 MG/ML INJ IVP PRN (05:10)
[2018-06-17] MEDS ORDERED: Ondansetron 4 MG/2 ML VIAL IVP PRN (05:15)
--- NOTE | 2018-06-17 05:24 | Internal Med History&Physical ---
Date of Encounter: 06/17/18 Time of Encounter: 05:17 Internal Medicine - H&P: HPI Chief complaint: chest pain Admitted From: Emergency Dept Plans for Post Hospital Care: Home History of present illness: Ms. Lazo is a 52 year old female who presents with a one day history of chest pain, shortness of breath, and diaphoresis. Symptoms started abruptly with no correlation with exertion. She came to ER for evaluation and received nitroglycerin with complete relief of her chest pain. She was subsequently admitted to hospitalist service. I reviewed her old records and note that she had a stress test just 4 months ago which was equivocal. She followed up with her paint roller covers supervisor at [facility] who recommended repeat stress test in the future if she has recurrent chest pain. She now presents with recurrent chest pain and, if she requires any ischemic workup such as stress test or heart catheterization, she prefers to have it done at [facility]. She follows with multiple consultants at [facility] because she has sarcoid involvement of her lungs and her heart. She denies any worsening dyspnea or wheezing. She denies any fevers, cough, chills, or night sweats. Activity level has not changed either. I discussed with her that we would do serial cardiac enzymes and EKGs. If she remains stable and does not have any evidence of WA, she may be able go home and then proceed with outpatient testing next week with her paint roller covers supervisor at [facility]. However, she may need further workup as an inpatient, at which point she may be transferred to [facility]. Patient also notes she has had worsening heartburn and nausea lately. She takes antacids with partial relief. This may also contribute to her chest pain. Past Med Surg Social Fam HX - Past Medical History Attestation: Yes The following information was validated with the patient. Source: patient, old records reviewed Medical history: hyperlipidemia, hypertension, renal disease Additional medical history: sarcoidosis. Bradycardia Psychiatric history: anxiety, depression - Past Surgical History Surgical History: cholecystectomy, hysterectomy, LYNNE/BSO, AICD Additional surgical history: lung biopsy. sarcoidosis - Social History Smoking Status: Former smoker Smokeless Tobacco Status: No Alcohol use: none Drug use: none Current living situation: Home, With Family Activity Level: Independent ambulation Recent Out of Country Travel Within the Last 8 Weeks: No Exposure or Possible Exposure to Illness During Travel: No - Family History Brother Family Member Ethnicity: Non- Living Status: Still Living Hx Family Endocrine Disorder: Yes Mother Family Member Ethnicity: Non- Living Status: Still Living Hx Family Respiratory Disorders: Yes (Asthma) Hx Family Neuromuscular Disorders: Yes Father Family Member Ethnicity: Non- Living Status: Still Living Hx Family Cardiac Disorders: Yes Hx Family Respiratory Disorders: No Hx Family GI Disorders: Yes Internal Medicine - H&P: Meds Aspirin 81 mg PO DAILY 05/09/15 [History] Atorvastatin [Lipitor] 10 mg PO HS 05/09/15 [History] Furosemide [Lasix] 20 mg PO DAILY 05/09/15 [History] Metoprolol XL (24 HR) Succ [Toprol XL] 25 mg PO HS 05/09/15 [History] Ropinirole HCl [Requip] 2 mg PO HS 02/01/16 [History] Diclofenac Sodium [Voltaren] 75 mg PO BID PRN 01/14/17 [History] Melatonin [Melatin] 9 mg PO HS 07/08/17 [History] Omeprazole [PriLOSEC] 40 mg PO DAILY 07/08/17 [History] Potassium Chloride [K-Tab ER] 20 meq PO Q48H 07/08/17 [History] Amitriptyline [Elavil] 10 - 20 mg PO HS PRN 09/15/17 [History] Folic Acid 1 mg PO DAILY 09/15/17 [History] Methotrexate [Otrexup] 12.5 mg PO TH 09/15/17 [History] Mv,Fe,Min/Lutein [A Thru Z Select Women's Tablet] 1 tab PO DAILY 09/15/17 [ History] Ipratropium/Albuterol Neb [Duoneb] 3 ml IH [id number] PRN 30 Days #10 inhsol [Rx] Promethazine [Phenergan] 12.5 mg PO Q6HR PRN #30 tablet 09/18/17 [Rx] DULoxetine [Cymbalta] 30 mg PO DAILY 01/26/18 [History] Fluticasone/Vilanterol [Breo Ellipta 200-25 Mcg INH] 1 puff IH DAILY 01/26/18 [ History] Gabapentin [Neurontin] 800 mg PO TID 01/26/18 [History] Losartan [Cozaar] 25 mg PO BID 01/26/18 [History] Nitroglycerin 0.4 mg SL Q5MIN PRN #1 bottle 01/30/18 [Rx] Sennosides/Docusate Sodium [Senna Plus] 1 each PO BID #60 tablet 01/30/18 [Rx] rOPINIRole [Requip] 1 mg PO DAILY tablet 01/30/18 [Rx] 3 Allergy/AdvReac Type Severity Reaction Status Date / Time nitrofurantoin AdvReac Mild Rash Verified 11/28/17 11:21 [From Macrobid] - Constitutional Constitutional: no chills, no fever(s), no lethargy - EENT Eyes: no blurry vision, no change in vision Ears: no ear pain, no tinnitus Nose, mouth and throat: no nasal congestion, no sinus pressure, no sore throat - Cardiovascular Cardiovascular ROS IM: chest pain, dyspnea on exertion, edema, no dyspnea, no syncope - Respiratory Respiratory: dyspnea, dyspnea on exertion, no cough, no hemoptysis, no chest congestion, no excessive phlegm production, no change in phlegm color - Gastrointestinal Gastrointestinal: early satiety, heartburn, nausea, no abdominal pain, no hematemesis, no hematochezia, no melena - Genitourinary Genitourinary: no dysuria, no flank pain, no hematuria - Musculoskeletal Musculoskeletal ROS IM: arthralgias, back pain - Integumentary Integumentary IM: no rash, no jaundice - Neurological Neurological ROS: no dizziness, no focal weakness, no frequent falls, no headache(s) - Psychiatric Psychiatric: no anxiety, no depression - Endocrine Endocrine IM: no polydipsia, no polyphagia, no polyuria - Hematologic/Lymphatic Hematologic/Lymphatic: no easy bruising, no lymphadenopathy - Allergic/Immunologic Allergic/Immunologic: no GI upset with certain foods - Constitutional Vitals: Temp Pulse Resp BP Pulse Ox 97.5 F L 69 15 127/82 95 06/17/18 03:01 06/17/18 03:01 06/17/18 03:01 06/17/18 03:01 06/17/18 03:01 General appearance: Present: cooperative, A&O X 3, pleasant, no acute distress, answers questions appropriately Exam: see below - Head Head exam: Present: atraumatic, normal inspection - Eye Eye exam: Present: EOMI, normal appearance, PERRL. Absent: scleral icterus Pupils: Present: normal accommodation - ENT ENT exam: Present: mucous membranes dry, normal exam, normal external ear exam, normal oropharynx - Neck Neck exam general surgery: Present: supple. Absent: tenderness, nuchal rigidity , thyromegaly - Respiratory Respiratory exam: Present: CTAB. Absent: chest wall tenderness, rales, rhonchi , wheezes - Cardiovascular Cardiovascular exam: Present: RRR, +S1, +S2. Absent: diastolic murmur, systolic murmur - GI/Abdominal GI/Abdominal exam: Present: soft. Absent: hepatomegaly, tenderness - Extremities Exam Extremities exam: Present: full ROM, normal capillary refill, warm, radial pulses palpable and symmetrical. Absent: calf tenderness, joint swelling, mottling, pedal edema, tenderness - Back Exam Back exam: Absent: CVA tenderness (L), CVA tenderness (R) - Neurological Exam Neurological exam: Present: alert, CN II-XII intact, no focal deficits, strengths equal and symetr throughout - Psychiatric Psychiatric exam: Present: normal affect, normal mood - Skin Skin exam: Present: dry, intact, warm Internal Med - H&P Results - Labs CBC & Chem 7: 06/16/18 23:05 06/16/18 23:05 - EKG Data -: EKG Interpreted by Myself - EKG Data Prior EKG available for review: yes EKG comments: 06/17/18 05:34 Ventricular paced rhythm - Assessment and plan (1) Chest pain Current Visit: Yes Status: Acute Assessment and plan: 1. Will trend troponins and EKG's. 2. Further outpatient cardiac work-up at [facility] per patient. 3. May need transfer inpatient if inpatient work-up/observation dictates. Qualifiers: Chest pain type: other chest pain Qualified Code(s): R07.89 - Other chest pain; R07.8 - Other chest pain (2) GERD (gastroesophageal reflux disease) Current Visit: No Status: Chronic Qualifiers: Esophagitis presence: esophagitis presence not specified Qualified Code(s) : K21.9 - Gastro-esophageal reflux disease without esophagitis (3) DVT prophylaxis Current Visit: No Status: Acute
[2018-06-17] MEDS ORDERED: *HR* Heparin 5,000 UNIT/ML VIAL SQ SCH (06:00)
[2018-06-17] MEDS: Gabapentin 400 MG CAPSULE PO SCH ×2 (08:12→14:18)
[2018-06-17] MEDS ORDERED: Multivit/Ca/Min/Fe/FA 1 TAB TABLET PO SCH (09:00)
[2018-06-17] MEDS ORDERED: Aspirin 81 MG TAB.CHEW PO SCH (09:00)
[2018-06-17] MEDS ORDERED: Folic Acid 1 MG TABLET PO SCH (09:00)
[2018-06-17] MEDS ORDERED: Breo Ellipta 200-25 Mcg IH SCH (09:00)
[2018-06-17] MEDS ORDERED: Furosemide 20 MG TABLET PO SCH (09:00)
[2018-06-17 12:00] VITALS: BP 111/75
--- NOTE | 2018-06-17 14:16 | Discharge Summary ---
- NOTES TO OUTPATIENT PROVIDER Notes to Outpatient Provider: Admitted with chest pain. Serial troponins negative, ECG without significant changes from prior. F/u with outpatient cardiology at [facility] Orders not resulted at time of discharge: Pending orders 06/17/18 06:00 ECG 12 lead ECG [ECG] AM 0600 06/17/18 17:15 Troponin I Q6H 06/18/18 04:00 Activated Partial Thrombo Time [COAG] AM 0400 Comprehensive Metabolic Panel AM 0400 Lipid Panel AM 0400 Magnesium AM 0400 Prothrombin Time INR [COAG] AM 0400 Date of Encounter: 06/17/18 Time of Encounter: 13:54 - Discharge Diagnosis (1) Chest pain Priority: Primary Status: Acute Assessment and Plan: Presents with a 2 day history of intermittent chest pain that is inserted without radiation. Additionally, she is reporting shortness of breath and diaphoresis. She was recently seen and admitted for a stress test approximately 4 months ago which was equivocal Follow-up with animal damage control agent at [facility] recommends repeat stress test with recurrent chest pain This was discussed with patient reported she would like to stay for further observation including serial troponins before deciding to go to [facility] for cardiology follow-up Chest pain subsided after one sublingual nitroglycerin, no return of chest pain throughout stay. Serial troponins remained negative less than 0.03 EKG without any changes concerning for ischemia when compared to prior per my review Discussed with the patient this afternoon whether or not she would like to proceed with additional cardiac workup in transfer to [facility] She reports that since her chest pain has subsided she would prefer to discharge home and to continue to follow with her animal damage control agent as is already scheduled With negative serial troponins and without changes to ECG tracing who discharged the patient home at this time. She has been instructed to follow-up with PCP within one week and to keep cardiology appointment at [facility]. Additionally, she has been instructed to return to the ED showed chest pain and/ or shortness of breath as well as diaphoresis return. Qualifiers: Chest pain type: other chest pain Qualified Code(s): R07.89 - Other chest pain; R07.8 - Other chest pain (2) GERD (gastroesophageal reflux disease) Priority: Secondary Status: Chronic Assessment and Plan: PPI Qualifiers: Esophagitis presence: esophagitis presence not specified Qualified Code(s) : K21.9 - Gastro-esophageal reflux disease without esophagitis (3) DVT prophylaxis Priority: Secondary Status: Acute Assessment and Plan: [place] [facility] Hospital course: Ms. Lazo is a 52 year old female with an extensive past medical history including HLD, HTN, renal disease, sarcoidosis. She presented to [facility] with diaphoresis, shortness of breath and chest pain. Chest pain subsided with one sublingual nitroglycerin. Serial troponins negative 3, ECG without any acute changes from prior tracings concerning for ischemia. Patient was offered further workup and evaluation at this facility to which she declined. Additionally, she was offered further workup and evaluation for ACS at [facility] which initially she was interested in as this is where her animal damage control agent resides. However, this too she declined. She continues to deny any return of chest pain throughout this admission and is set up to follow-up with her animal damage control agent at [facility]. Follow-up appointment already scheduled. She has been instructed to follow-up with her PCP within a week of discharge. Additionally, she has been instructed to return to the ED should chest pain or shortness of breath return. The patient verbalizes understanding and denies any further questions at this time. Discharge discussed with: patient, nurse - Time Spent with Patient Total time spent providing and/or coordinating discharge services: Less than 30 minutes - Discharge Medications Home Medications: Aspirin 81 mg PO DAILY 05/09/15 [History] Furosemide [Lasix] 20 mg PO DAILY 05/09/15 [History] Ropinirole HCl [Requip] 2 mg PO HS 02/01/16 [History] Diclofenac Sodium [Voltaren] 75 mg PO BID PRN 01/14/17 [History] Melatonin [Melatin] 9 mg PO HS 07/08/17 [History] Potassium Chloride [K-Tab ER] 20 meq PO Q48H 07/08/17 [History] Folic Acid 1 mg PO DAILY 09/15/17 [History] Methotrexate [Otrexup] 12.5 mg PO FR 09/15/17 [History] Mv,Fe,Min/Lutein [A Thru Z Select Women's Tablet] 1 tab PO DAILY 09/15/17 [ History] Ipratropium/Albuterol Neb [Duoneb] 3 ml IH [id number] PRN 30 Days #10 inhsol [Rx] Promethazine [Phenergan] 12.5 mg PO Q6HR PRN #30 tablet 09/18/17 [Rx] DULoxetine [Cymbalta] 30 mg PO DAILY 01/26/18 [History] Fluticasone/Vilanterol [Breo Ellipta 200-25 Mcg INH] 1 puff IH DAILY 01/26/18 [ History] Gabapentin [Neurontin] 800 mg PO TID 01/26/18 [History] Losartan [Cozaar] 25 mg PO BID 01/26/18 [History] Nitroglycerin 0.4 mg SL Q5MIN PRN #1 bottle 01/30/18 [Rx] Sennosides/Docusate Sodium [Senna Plus] 1 each PO BID #60 tablet 01/30/18 [Rx] Atorvastatin [Lipitor] 10 mg PO HS 06/17/18 [History] Famotidine [Pepcid] 20 mg PO DAILY 06/17/18 [History] Metoprolol Succinate [Toprol Xl] 25 mg PO BID 06/17/18 [History] rOPINIRole [Requip] 1 mg PO QAM 06/17/18 [History] Allergies/Adverse Reactions: 3 Allergy/AdvReac Type Severity Reaction Status Date / Time nitrofurantoin AdvReac Mild Rash Verified 11/28/17 11:21 [From Macrobid] Date of admission: 06/17/18 01:51 Primary care physician: Cole Bryant CNP Discharging clinician: Jason Marcial Anticipated date of discharge: 06/17/18 - Constitutional Vitals: Temp Pulse Resp BP Pulse Ox 98.5 F 68 16 111/75 94 06/17/18 11:59 06/17/18 11:59 06/17/18 11:59 06/17/18 11:59 06/17/18 11:59 General appearance: Present: cooperative, A&O X 3, pleasant, no acute distress, obese, answers questions appropriately Exam: . - Head Head exam: Present: atraumatic, normocephalic - Eye Eye exam: Present: PERRL, conjuntiva pink, sclera anicteric Pupils: Present: PERRL - Neck Neck exam general surgery: Present: supple, trachea midline. Absent: lymphadenopathy - Respiratory Respiratory exam: Present: CTAB. Absent: accessory muscle use, rales, rhonchi, wheezes - Cardiovascular Cardiovascular exam: Present: RRR, +S1, +S2. Absent: diastolic murmur, gallop, rubs, systolic murmur - GI/Abdominal GI/Abdominal exam: Present: normal bowel sounds, soft, no peritoneal signs. Absent: distended, tenderness - Extremities Exam Extremities exam: Present: warm, radial pulses palpable and symmetrical. Absent : calf tenderness, cyanotic, pedal edema - Neurological Exam Neurological exam: Present: CN II-XII intact, oriented X3, no focal deficits. Absent: pronater drift, facial droop, speech deficit - Skin Skin exam: Present: dry, intact - Patient Status Disposition: Home, Self-Care Condition: Good Functional capacity at discharge: independent ambulation Overall status at discharge: patient is back to baseline - Discharge Instructions Instructions: Chest Pain (DC) Follow Up With: Cole Bryant [employer] [Primary Care Provider] - - Diet and Activity Activity: increase activity as tolerated, resume usual activities as tolerated Diet: diabetic diet, low fat, low cholesterol, low salt diet
[2018-06-17] MEDS ORDERED: Sennosides/Docusate Sodium TABLET PO SCH (21:00)
[2018-06-17] MEDS ORDERED: Melatonin 3 MG TABLET PO SCH (21:00)
--- NOTE | 2018-06-19 17:28 | Electrocardiograph Report ---
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
--- NOTE | 2018-06-19 17:43 | Electrocardiograph Report ---
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
--- NOTE | 2018-06-21 17:25 | Electrocardiograph Report ---
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 Recommend check ECG machine settings for pacing spikes and repeat ECG. Electronically Signed On 06-21-2018 17:23:42 EDT by Brooke Soni
[2018-06-22] MEDS ORDERED: *HR* Methotrexate 2.5 MG TABLET PO SCH (09:00)
== END 2018-06-17 15:12 | disposition home or self-care (01) ==
LOC: 3BNU 22:31 → EMEROOARM 22:31 → 3BNU 06-17 02:48
PROVIDERS: ADMIT Family Medicine; ATTEND Family Medicine

== ENCOUNTER 2018-08-26 19:43 | Observation (INO) ==
--- NOTE | 2018-08-26 19:52 | Emergency Department Note ---
Disposition Clinical Impression: Chest pain Qualifiers: Chest pain type: other chest pain Qualified Code(s): R07.89 - Other chest pain Disposition: Still a Patient Condition: Good Referrals: Cole Bryant CNP [Primary Care Provider] - Forms: ED Satisfaction Letter Time of Disposition: 23:18 Chest Pain HPI - General Chief Complaint: ED Chest Pain Stated Complaint: "Chest Heaviness/Cough" Time Seen by Provider: 08/26/18 19:50 Source: patient Limitations: no limitations Vital Signs Reviewed: Yes Nursing Notes Reviewed: Yes - History of Present Illness HPI Narrative: 53-year-old female presents emergency department with concern for chest pain. Patient reports that she has felt under the weather over the last few days with cough. Reports that she has some chest heaviness that started at 1400. Patient reports no history of coronary artery disease. She does report history of hypertension, hyperlipidemia, used to be a smoker, history of sarcoidosis doses on methotrexate. Also states that father had coronary artery disease. Patient reports subjective fevers. Severity scale (1-10): 6 - Related Data Home Medications Medication Instructions Recorded Confirmed Aspirin 81 mg PO DAILY 05/09/15 06/17/18 Furosemide [Lasix] 20 mg PO DAILY 05/09/15 06/17/18 Ropinirole HCl [Requip] 2 mg PO HS 02/01/16 08/26/18 Diclofenac Sodium [Voltaren] 75 mg PO BID PRN 01/14/17 06/17/18 Melatonin [Melatin] 9 mg PO HS 07/08/17 08/26/18 Potassium Chloride [K-Tab ER] 20 meq PO Q48H 07/08/17 08/26/18 Folic Acid 1 mg PO DAILY 09/15/17 06/17/18 Methotrexate [Otrexup] 12.5 mg PO FR 09/15/17 08/26/18 Mv,Fe,Min/Lutein [A Thru Z Select 1 tab PO DAILY 09/15/17 08/26/18 Women's Tablet] DULoxetine [Cymbalta] 30 mg PO DAILY 01/26/18 06/17/18 Fluticasone/Vilanterol [Breo 1 puff IH DAILY 01/26/18 06/17/18 Ellipta 200-25 Mcg INH] Gabapentin [Neurontin] 800 mg PO TID 01/26/18 06/17/18 Losartan [Cozaar] 25 mg PO BID 01/26/18 08/26/18 Atorvastatin [Lipitor] 10 mg PO HS 06/17/18 06/17/18 Famotidine [Pepcid] 20 mg PO DAILY 06/17/18 06/17/18 Metoprolol Succinate [Toprol Xl] 25 mg PO BID 06/17/18 08/26/18 rOPINIRole [Requip] 1 mg PO DAILY 06/17/18 08/26/18 Previous Rx's Medication Instructions Recorded Ipratropium/Albuterol Neb [Duoneb] 3 ml IH [id number] PRN 30 Days #10 09/18/17 inhsol Promethazine [Phenergan] 12.5 mg PO Q6HR PRN #30 tablet 09/18/17 Nitroglycerin 0.4 mg SL Q5MIN PRN #1 bottle 01/30/18 Allergies Allergy/AdvReac Type Severity Reaction Status Date / Time nitrofurantoin AdvReac Mild Rash Verified 11/28/17 11:21 [From Macrobid] All systems ED: reviewed and negative except as stated. 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 Absent: respiratory distress, accessory muscle use - Cardiovascular Cardiovascular exam: Present: regular rate, normal rhythm, normal heart sounds - Abdominal Exam Abdominal exam: Present: soft, Non-Tender. Absent: distention, guarding, rebound, rigidity - Extremities Exam Extremities exam: Present: normal capillary refill - Back Exam Back exam: Present: full ROM - Neurological Exam Neurological exam: Present: alert, oriented X3 - Psychiatric Psychiatric exam: Present: normal affect, normal mood - Skin Skin exam: Present: warm, dry, intact, normal color. Absent: rash Course Vital Signs Temperature 98.1 F 08/26/18 19:45 Pulse Rate 84 08/26/18 19:45 Respiratory Rate 20 08/26/18 19:45 Blood Pressure 111/64 08/26/18 19:45 O2 Sat by Pulse Oximetry 98 08/26/18 19:45 Temperature 98.1 F 08/26/18 19:45 Pulse Rate 71 08/26/18 22:05 Respiratory Rate 16 08/26/18 22:05 Blood Pressure 107/57 08/26/18 22:05 O2 Sat by Pulse Oximetry 96 08/26/18 22:05 Oxygen Delivery Oxygen Delivery Room Air Chest Pain - MDM Narrative Medical decision making narrative: 53-year-old female presents emergency department with concern for chest heaviness. Patient's most multiple risk factors for ACS. EKG revealed ventricular paced rhythm, but no evidence of any ischemic changes. Troponin was negative. Chest x-ray was normal. Patient had elevated d-dimer. We obtained CTA to rule out pulmonary embolus as well as for possibility of pneumonia. Henna ent's heart score 4. Other labs within normal limits. I discussed admission with patient for ACS rule out. She agrees with plan. Patient signed out to Dr. london and Dr. Abraham. She is hemodynamically stable not in acute distress at that time. Patient was given aspirin 325 chewable tablet. Chest X-Ray 08/26/18 19:52 IMPRESSION: No acute process. D/ / Anderson Hall MD / Anderson Hall MD Interpreting Provider: Anderson Hall MD Vital Signs Temperature 98.1 F 08/26/18 19:45 Pulse Rate 84 08/26/18 19:45 Respiratory Rate 20 08/26/18 19:45 Blood Pressure 111/64 08/26/18 19:45 O2 Sat by Pulse Oximetry 98 08/26/18 19:45 Temperature 98.1 F 08/26/18 19:45 Pulse Rate 71 08/26/18 22:05 Respiratory Rate 16 08/26/18 22:05 Blood Pressure 107/57 08/26/18 22:05 O2 Sat by Pulse Oximetry 96 08/26/18 22:05 Oxygen Delivery Oxygen Delivery Room Air - Lab Data Result diagrams: 08/26/18 20:22 08/26/18 20:22 Lab Results 08/26/18 08/26/18 08/26/18 Range/Units 20:15 20:22 20:22 WBC 9.7 (4.3-11.1) K/mcL RBC 4.30 (3.82-4.97) M/mcL Hgb 12.4 (11.5-15.4) g/dL Hct 38.5 (35.3-44.9) % MCV 89.5 (83.0-100.0) fL MCH 28.8 (28.0-33.3) pg MCHC 32.2 (31.6-35.5) g/dL RDW 14.3 (11.5-14.5) % Plt Count 321 (140-400) K/mcL MPV 9.1 L (9.4-12.4) fL Immature Gran % 0.3 (0-4) % Seg Neutrophils % 67.2 % Lymphocytes % 19.0 % Monocytes % 8.2 % Eosinophils % 4.6 % Basophils % 0.7 % Neutrophils # 6.5 (1.6-8.9) K/mcL Lymphocytes # 1.8 (0.6-4.6) K/mcL Monocytes # 0.8 (0.0-1.3) K/mcL Eosinophils # 0.4 (0.0-0.6) K/mcL Basophils # 0.1 (0.0-0.2) K/mcL D-Dimer 763 H (0-500) ng/mLFEU Sodium (136-145) mEq/L Potassium (3.5-5.1) mEq/L Chloride (98-107) mEq/L Carbon Dioxide (23-29) mEq/L BUN (6-20) mg/dL Creatinine (0.60-1.20) mg/dL Est GFR ( Amer) (> 60) Est GFR (Non-Af Amer) (> 60) BUN/Creatinine Ratio (6-26) Glucose (70-105) mg/dL Calculated Osmolality (280-300) Calcium (8.6-10.3) mg/dL Urine Color Dark Yellow (Yellow) Urine Clarity Cloudy A (Clear) Urine pH 5.5 (5.0-8.0) pH Units Ur Specific [place] 1.013 (1.010-1.025) Urine Protein 30 H (Neg-Trace) mg/dL Urine Glucose (UA) Normal (Normal) mg/dL Urine Ketones Negative (Negative) mg/dL Urine Blood Large H (Negative) Urine Nitrite Negative (Negative) Urine Bilirubin Negative (Negative) Urine Urobilinogen Normal (Normal) mg/dL Ur Leukocyte Esterase Trace H (Negative) Urine Microscopic RBC TNTC H (0-3) per hpf Urine Microscopic WBC 5-15 H (0-3) per hpf Ur Squamous Epith Cells Many H (None-Few) per lpf Urine Bacteria None Seen (None-Few) per hpf Hyaline Casts None Seen (None-Few) per lpf Ur Culture Indicated? NO. A (NO) 08/26/18 Range/Units 20:22 WBC (4.3-11.1) K/mcL RBC (3.82-4.97) M/mcL Hgb (11.5-15.4) g/dL Hct (35.3-44.9) % MCV (83.0-100.0) fL MCH (28.0-33.3) pg MCHC (31.6-35.5) g/dL RDW (11.5-14.5) % Plt Count (140-400) K/mcL MPV (9.4-12.4) fL Immature Gran % (0-4) % Seg Neutrophils % % Lymphocytes % % Monocytes % % Eosinophils % % Basophils % % Neutrophils # (1.6-8.9) K/mcL Lymphocytes # (0.6-4.6) K/mcL Monocytes # (0.0-1.3) K/mcL Eosinophils # (0.0-0.6) K/mcL Basophils # (0.0-0.2) K/mcL D-Dimer (0-500) ng/mLFEU Sodium 136 (136-145) mEq/L Potassium 3.7 (3.5-5.1) mEq/L Chloride 103 (98-107) mEq/L Carbon Dioxide 26 (23-29) mEq/L BUN 15 (6-20) mg/dL Creatinine 0.91 (0.60-1.20) mg/dL Est GFR ( Amer) > 60 (> 60) Est GFR (Non-Af Amer) > 60 (> 60) BUN/Creatinine Ratio 16 (6-26) Glucose 93 (70-105) mg/dL Calculated Osmolality 283 (280-300) Calcium 9.2 (8.6-10.3) mg/dL Urine Color (Yellow) Urine Clarity (Clear) Urine pH (5.0-8.0) pH Units Ur Specific [place] (1.010-1.025) Urine Protein (Neg-Trace) mg/dL Urine Glucose (UA) (Normal) mg/dL Urine Ketones (Negative) mg/dL Urine Blood (Negative) Urine Nitrite (Negative) Urine Bilirubin (Negative) Urine Urobilinogen (Normal) mg/dL Ur Leukocyte Esterase (Negative) Urine Microscopic RBC (0-3) per hpf Urine Microscopic WBC (0-3) per hpf Ur Squamous Epith Cells (None-Few) per lpf Urine Bacteria (None-Few) per hpf Hyaline Casts (None-Few) per lpf Ur Culture Indicated? (NO) - EKG Data EKG attestation: Yes I reviewed and interpreted this EKG. EKG results narrative: 20:15 Heart rate 69 bpm, PA interval 151 ms, QRS duration 140 ms, QTC 421 ms, QTC 451 ms, left axis deviation. Facial cyst ventricular paced rhythm. No evidence of any scarbossa criteria. Heart Score - Score History: Moderately Suspicious EKG: Normal Age: 45-65 Risk Factors: Equal/Greater than 3 risk factor or history of atherosclerotic disease Troponin: Less than normal limit HEART Score Total: 4
[2018-08-26] MEDS ORDERED: Ondansetron 4 MG/2 ML VIAL IVP ONE (20:05)
[2018-08-26] MEDS ORDERED: 0.9 % Sodium Chloride 1,000 ML IVC ONE (20:05)
[2018-08-26 20:26] LABS: Bilirubin,Urine Negative (Negative); Blood,Urine Large (Negative); Clarity,Urine Cloudy (Clear); Color,Urine Dark Yellow (Yellow); Glucose,Urine (UA) Normal (Normal); Ketones,Urine Negative (Negative); Leukocyte Esterase,Urine Trace (Negative); Nitrite,Urine Negative (Negative); PH,Urine 5.5 pH Units (5.0-8.0); Protein,Urine 30 mg/dL (Neg-Trace); Specific Gravity,Urine 1.013 (1.010-1.025); Urobilinogen,Urine Normal (Normal)
[2018-08-26 20:28] LABS: Bacteria,Urine None Seen per hpf (None-Few); Hyaline Casts,Urine None Seen per lpf (None-Few); RBC,Urine TNTC per hpf (0-3); Squamous Epithelial Cell,Urine Many per lpf (None-Few)
[2018-08-26 20:32] LABS: Basophils # 0.1 K/mcL (0.0-0.2); Basophils % 0.7 %; Eosinophils # 0.4 K/mcL (0.0-0.6); Eosinophils % 4.6 %; Hematocrit 38.5 % (35.3-44.9); Hemoglobin 12.4 g/dL (11.5-15.4); Immature Granulocytes % 0.3 % (0-4); Lymphocytes # 1.8 K/mcL (0.6-4.6); Mean Corpuscular HGB Conc 32.2 g/dL (31.6-35.5); Mean Corpuscular Hemoglobin 28.8 pg (28.0-33.3); Mean Corpuscular Volume 89.5 fL (83.0-100.0); Mean Platelet Volume 9.1 fL (9.4-12.4); Monocytes # 0.8 K/mcL (0.0-1.3); Monocytes % 8.2 %; Neutrophils # 6.5 K/mcL (1.6-8.9); Platelet Count 321 K/mcL (140-400); Red Cell Distribution Width 14.3 % (11.5-14.5); Segmented Neutrophils % 67.2 %
[2018-08-26 20:50] LABS: BUN/Creatinine Ratio 16 (6-26); Blood Urea Nitrogen 15 mg/dL (6-20); Calcium 9.2 mg/dL (8.6-10.3); Carbon Dioxide 26 mEq/L (23-29); Chloride 103 mEq/L (98-107); Glucose 93 mg/dL (70-105); Osmolality,Calculated 283 (280-300); Potassium 3.7 mEq/L (3.5-5.1); Sodium 136 mEq/L (136-145); eGFR For Non-African Americans > 60 (> 60)
[2018-08-26] MEDS ORDERED: Isovue-370 500 ML INFUS..BTL IV ONE (20:57)
[2018-08-26] MEDS ORDERED: Aspirin 81 MG TAB.CHEW PO STA (23:00)
--- NOTE | 2018-08-26 23:01 | Emergency Department Note ---
Disposition Clinical Impression: Chest pain Qualifiers: Chest pain type: other chest pain Qualified Code(s): R07.89 - Other chest pain; R07.8 - Other chest pain Disposition: Still a Patient Referrals: Cole Bryant CNP [Primary Care Provider] - Forms: ED Satisfaction Letter General Adult HPI - General Chief complaint: ED Chest Pain Stated complaint: "Chest Heaviness/Cough" Time Seen by Provider: 08/26/18 19:50 Source: patient Limitations: no limitations - History of Present Illness Pain Scale: 0 - Related Data Home Medications Medication Instructions Recorded Confirmed Aspirin 81 mg PO DAILY 05/09/15 06/17/18 Furosemide [Lasix] 20 mg PO DAILY 05/09/15 06/17/18 Ropinirole HCl [Requip] 2 mg PO HS 02/01/16 08/26/18 Diclofenac Sodium [Voltaren] 75 mg PO BID PRN 01/14/17 06/17/18 Melatonin [Melatin] 9 mg PO HS 07/08/17 08/26/18 Potassium Chloride [K-Tab ER] 20 meq PO Q48H 07/08/17 08/26/18 Folic Acid 1 mg PO DAILY 09/15/17 06/17/18 Methotrexate [Otrexup] 12.5 mg PO FR 09/15/17 08/26/18 Mv,Fe,Min/Lutein [A Thru Z Select 1 tab PO DAILY 09/15/17 08/26/18 Women's Tablet] DULoxetine [Cymbalta] 30 mg PO DAILY 01/26/18 06/17/18 Fluticasone/Vilanterol [Breo 1 puff IH DAILY 01/26/18 06/17/18 Ellipta 200-25 Mcg INH] Gabapentin [Neurontin] 800 mg PO TID 01/26/18 06/17/18 Losartan [Cozaar] 25 mg PO BID 01/26/18 08/26/18 Atorvastatin [Lipitor] 10 mg PO HS 06/17/18 06/17/18 Famotidine [Pepcid] 20 mg PO DAILY 06/17/18 06/17/18 Metoprolol Succinate [Toprol Xl] 25 mg PO BID 06/17/18 08/26/18 rOPINIRole [Requip] 1 mg PO DAILY 06/17/18 08/26/18 Previous Rx's Medication Instructions Recorded Ipratropium/Albuterol Neb [Duoneb] 3 ml IH [id number] PRN 30 Days #10 09/18/17 inhsol Promethazine [Phenergan] 12.5 mg PO Q6HR PRN #30 tablet 09/18/17 Nitroglycerin 0.4 mg SL Q5MIN PRN #1 bottle 01/30/18 Allergies Allergy/AdvReac Type Severity Reaction Status Date / Time nitrofurantoin AdvReac Mild Rash Verified 11/28/17 11:21 [From Macrobid] Past Medical History - Past Medical History Medical history: Reports: hyperlipidemia, hypertension, renal disease Surgical history: Reports: cholecystectomy, hysterectomy, LYNNE/BSO, AICD Psychiatric history: Reports: anxiety, depression PRIMARY COUNSELOR history: Reports: no PRIMARY COUNSELOR history - Social History Smoking Status: Former smoker Smokeless Tobacco Status: No Alcohol use: Reports: none Drug use: Reports: none Physical Exam - General Limitations: no limitations General appearance: alert Course Vital Signs Temperature 98.1 F 08/26/18 19:45 Pulse Rate 84 08/26/18 19:45 Respiratory Rate 20 08/26/18 19:45 Blood Pressure 111/64 08/26/18 19:45 O2 Sat by Pulse Oximetry 98 08/26/18 19:45 Temperature 98.1 F 08/26/18 19:45 Pulse Rate 71 08/26/18 22:05 Respiratory Rate 16 08/26/18 22:05 Blood Pressure 107/57 08/26/18 22:05 O2 Sat by Pulse Oximetry 96 08/26/18 22:05 Oxygen Delivery Oxygen Delivery Room Air Medical Decision Making - Lab Data Result diagrams: 08/26/18 20:22 08/26/18 20:22 Lab Results 08/26/18 08/26/18 08/26/18 Range/Units 20:15 20:22 20:22 WBC 9.7 (4.3-11.1) K/mcL RBC 4.30 (3.82-4.97) M/mcL Hgb 12.4 (11.5-15.4) g/dL Hct 38.5 (35.3-44.9) % MCV 89.5 (83.0-100.0) fL MCH 28.8 (28.0-33.3) pg MCHC 32.2 (31.6-35.5) g/dL RDW 14.3 (11.5-14.5) % Plt Count 321 (140-400) K/mcL MPV 9.1 L (9.4-12.4) fL Immature Gran % 0.3 (0-4) % Seg Neutrophils % 67.2 % Lymphocytes % 19.0 % Monocytes % 8.2 % Eosinophils % 4.6 % Basophils % 0.7 % Neutrophils # 6.5 (1.6-8.9) K/mcL Lymphocytes # 1.8 (0.6-4.6) K/mcL Monocytes # 0.8 (0.0-1.3) K/mcL Eosinophils # 0.4 (0.0-0.6) K/mcL Basophils # 0.1 (0.0-0.2) K/mcL D-Dimer 763 H (0-500) ng/mLFEU Sodium (136-145) mEq/L Potassium (3.5-5.1) mEq/L Chloride (98-107) mEq/L Carbon Dioxide (23-29) mEq/L BUN (6-20) mg/dL Creatinine (0.60-1.20) mg/dL Est GFR ( Amer) (> 60) Est GFR (Non-Af Amer) (> 60) BUN/Creatinine Ratio (6-26) Glucose (70-105) mg/dL Calculated Osmolality (280-300) Calcium (8.6-10.3) mg/dL Urine Color Dark Yellow (Yellow) Urine Clarity Cloudy A (Clear) Urine pH 5.5 (5.0-8.0) pH Units Ur Specific [place] 1.013 (1.010-1.025) Urine Protein 30 H (Neg-Trace) mg/dL Urine Glucose (UA) Normal (Normal) mg/dL Urine Ketones Negative (Negative) mg/dL Urine Blood Large H (Negative) Urine Nitrite Negative (Negative) Urine Bilirubin Negative (Negative) Urine Urobilinogen Normal (Normal) mg/dL Ur Leukocyte Esterase Trace H (Negative) Urine Microscopic RBC TNTC H (0-3) per hpf Urine Microscopic WBC 5-15 H (0-3) per hpf Ur Squamous Epith Cells Many H (None-Few) per lpf Urine Bacteria None Seen (None-Few) per hpf Hyaline Casts None Seen (None-Few) per lpf Ur Culture Indicated? NO. A (NO) 08/26/18 Range/Units 20:22 WBC (4.3-11.1) K/mcL RBC (3.82-4.97) M/mcL Hgb (11.5-15.4) g/dL Hct (35.3-44.9) % MCV (83.0-100.0) fL MCH (28.0-33.3) pg MCHC (31.6-35.5) g/dL RDW (11.5-14.5) % Plt Count (140-400) K/mcL MPV (9.4-12.4) fL Immature Gran % (0-4) % Seg Neutrophils % % Lymphocytes % % Monocytes % % Eosinophils % % Basophils % % Neutrophils # (1.6-8.9) K/mcL Lymphocytes # (0.6-4.6) K/mcL Monocytes # (0.0-1.3) K/mcL Eosinophils # (0.0-0.6) K/mcL Basophils # (0.0-0.2) K/mcL D-Dimer (0-500) ng/mLFEU Sodium 136 (136-145) mEq/L Potassium 3.7 (3.5-5.1) mEq/L Chloride 103 (98-107) mEq/L Carbon Dioxide 26 (23-29) mEq/L BUN 15 (6-20) mg/dL Creatinine 0.91 (0.60-1.20) mg/dL Est GFR ( Amer) > 60 (> 60) Est GFR (Non-Af Amer) > 60 (> 60) BUN/Creatinine Ratio 16 (6-26) Glucose 93 (70-105) mg/dL Calculated Osmolality 283 (280-300) Calcium 9.2 (8.6-10.3) mg/dL Urine Color (Yellow) Urine Clarity (Clear) Urine pH (5.0-8.0) pH Units Ur Specific [place] (1.010-1.025) Urine Protein (Neg-Trace) mg/dL Urine Glucose (UA) (Normal) mg/dL Urine Ketones (Negative) mg/dL Urine Blood (Negative) Urine Nitrite (Negative) Urine Bilirubin (Negative) Urine Urobilinogen (Normal) mg/dL Ur Leukocyte Esterase (Negative) Urine Microscopic RBC (0-3) per hpf Urine Microscopic WBC (0-3) per hpf Ur Squamous Epith Cells (None-Few) per lpf Urine Bacteria (None-Few) per hpf Hyaline Casts (None-Few) per lpf Ur Culture Indicated? (NO) Attestation Statement - Attestation Attestation: I examined this patient and my medical decision-making was reviewed with the Resident Physician. I agree with the documented findings, disposition and treatment plan as described except to the extent set forth below. 53 year old female presents to the ED with complaints of chest heaviness and has risk factor, elevetae dimer and CTA pending. PAtinet will need to be admitted. WE will sign patinet out to See/Delores for followup on CTA chest and then admission for CP r/o ACS
[2018-08-26] MEDS ORDERED: Gabapentin 300 MG CAPSULE PO STA (23:03)
[2018-08-26] MEDS ORDERED: rOPINIRole 1 MG TABLET PO STA (23:03)
--- NOTE | 2018-08-26 23:33 | Emergency Department Note ---
Disposition Clinical Impression: Chest pain Qualifiers: Chest pain type: other chest pain Qualified Code(s): R07.89 - Other chest pain Pneumonia Qualifiers: Pneumonia type: due to unspecified organism Laterality: right Lung location: unspecified part of lung Qualified Code(s): J18.9 - Pneumonia, unspecified organism Disposition: Admitted As Inpatient Condition: Good Time of Disposition: 23:30 General Adult HPI - General Chief complaint: ED Chest Pain Stated complaint: "Chest Heaviness/Cough" Time Seen by Provider: 08/26/18 19:50 Source: patient Limitations: no limitations - History of Present Illness Pain Scale: 6 - Related Data Home Medications Medication Instructions Recorded Confirmed Aspirin 81 mg PO DAILY 05/09/15 06/17/18 Furosemide [Lasix] 20 mg PO DAILY 05/09/15 06/17/18 Ropinirole HCl [Requip] 2 mg PO HS 02/01/16 08/26/18 Diclofenac Sodium [Voltaren] 75 mg PO BID PRN 01/14/17 06/17/18 Melatonin [Melatin] 9 mg PO HS 07/08/17 08/26/18 Potassium Chloride [K-Tab ER] 20 meq PO Q48H 07/08/17 08/26/18 Folic Acid 1 mg PO DAILY 09/15/17 06/17/18 Methotrexate [Otrexup] 12.5 mg PO FR 09/15/17 08/26/18 Mv,Fe,Min/Lutein [A Thru Z Select 1 tab PO DAILY 09/15/17 08/26/18 Women's Tablet] DULoxetine [Cymbalta] 30 mg PO DAILY 01/26/18 06/17/18 Fluticasone/Vilanterol [Breo 1 puff IH DAILY 01/26/18 06/17/18 Ellipta 200-25 Mcg INH] Gabapentin [Neurontin] 800 mg PO TID 01/26/18 06/17/18 Losartan [Cozaar] 25 mg PO BID 01/26/18 08/26/18 Atorvastatin [Lipitor] 10 mg PO HS 06/17/18 06/17/18 Famotidine [Pepcid] 20 mg PO DAILY 06/17/18 06/17/18 Metoprolol Succinate [Toprol Xl] 25 mg PO BID 06/17/18 08/26/18 rOPINIRole [Requip] 1 mg PO DAILY 06/17/18 08/26/18 Previous Rx's Medication Instructions Recorded Ipratropium/Albuterol Neb [Duoneb] 3 ml IH [id number] PRN 30 Days #10 09/18/17 inhsol Promethazine [Phenergan] 12.5 mg PO Q6HR PRN #30 tablet 09/18/17 Nitroglycerin 0.4 mg SL Q5MIN PRN #1 bottle 01/30/18 Allergies Allergy/AdvReac Type Severity Reaction Status Date / Time nitrofurantoin AdvReac Mild Rash Verified 11/28/17 11:21 [From Macrobid] Constitutional: Denies: fever Cardiovascular: Reports: chest pain Respiratory: Reports: cough, dyspnea Gastrointestinal: Denies: abdominal pain, nausea, vomiting Genitourinary: Denies: urgency, dysuria, frequency Musculoskeletal: Denies: back pain Neurological: Denies: headache, weakness, numbness, paresthesias Past Medical History - Past Medical History Medical history: Reports: hyperlipidemia, hypertension, renal disease Surgical history: Reports: cholecystectomy, hysterectomy, LYNNE/BSO, AICD Psychiatric history: Reports: anxiety, depression CONE EXAMINER history: Reports: no CONE EXAMINER history - Social History Smoking Status: Former smoker Smokeless Tobacco Status: No Alcohol use: Reports: none Drug use: Reports: none Physical Exam - General Limitations: no limitations General appearance: alert Course Vital Signs Temperature 98.1 F 08/26/18 19:45 Pulse Rate 84 08/26/18 19:45 Respiratory Rate 20 08/26/18 19:45 Blood Pressure 111/64 08/26/18 19:45 O2 Sat by Pulse Oximetry 98 08/26/18 19:45 Temperature 98.1 F 08/26/18 19:45 Pulse Rate 90 08/27/18 00:06 Respiratory Rate 18 08/27/18 00:06 Blood Pressure 96/53 08/27/18 00:06 O2 Sat by Pulse Oximetry 97 08/27/18 00:06 Oxygen Delivery Oxygen Delivery Room Air Medical Decision Making - MDM Narrative Medical decision making narrative: Patient was received in signout from Dr. Shin and Dr. Dumont please see their documentation for history of presenting illness, physical exam and initial medical decision making. The CTA of the chest was pending at signout. The CTA of the chest came back and was negative for pulmonary emboli. However the CT scan of the chest was concerning for a mild infiltrate in the right lung. Henna ent be given a dose of Rocephin and azithromycin here in the emergency department. Patient will require admission to the hospital for ACS rule out. There was no troponin that have been ordered on the patient so a troponin was added. Patient will be admitted once the troponin has returned. Patient's troponin is negative. Patient will admitted for further evaluation and managemnet of her chest pian . I called and spoke with the admitting hospitalist and he is accepted the patient to their service. Patient be admitted this time for further evaluation and management. - Lab Data Result diagrams: 08/26/18 20:22 08/26/18 20:22 Lab Results 08/26/18 08/26/18 08/26/18 Range/Units 20:15 20:22 20:22 WBC 9.7 (4.3-11.1) K/mcL RBC 4.30 (3.82-4.97) M/mcL Hgb 12.4 (11.5-15.4) g/dL Hct 38.5 (35.3-44.9) % MCV 89.5 (83.0-100.0) fL MCH 28.8 (28.0-33.3) pg MCHC 32.2 (31.6-35.5) g/dL RDW 14.3 (11.5-14.5) % Plt Count 321 (140-400) K/mcL MPV 9.1 L (9.4-12.4) fL Immature Gran % 0.3 (0-4) % Seg Neutrophils % 67.2 % Lymphocytes % 19.0 % Monocytes % 8.2 % Eosinophils % 4.6 % Basophils % 0.7 % Neutrophils # 6.5 (1.6-8.9) K/mcL Lymphocytes # 1.8 (0.6-4.6) K/mcL Monocytes # 0.8 (0.0-1.3) K/mcL Eosinophils # 0.4 (0.0-0.6) K/mcL Basophils # 0.1 (0.0-0.2) K/mcL D-Dimer 763 H (0-500) ng/mLFEU Sodium (136-145) mEq/L Potassium (3.5-5.1) mEq/L Chloride (98-107) mEq/L Carbon Dioxide (23-29) mEq/L BUN (6-20) mg/dL Creatinine (0.60-1.20) mg/dL Est GFR ( Amer) (> 60) Est GFR (Non-Af Amer) (> 60) BUN/Creatinine Ratio (6-26) Glucose (70-105) mg/dL Calculated Osmolality (280-300) Calcium (8.6-10.3) mg/dL Troponin I (< 0.04) ng/mL Urine Color Dark Yellow (Yellow) Urine Clarity Cloudy A (Clear) Urine pH 5.5 (5.0-8.0) pH Units Ur Specific [place] 1.013 (1.010-1.025) Urine Protein 30 H (Neg-Trace) mg/dL Urine Glucose (UA) Normal (Normal) mg/dL Urine Ketones Negative (Negative) mg/dL Urine Blood Large H (Negative) Urine Nitrite Negative (Negative) Urine Bilirubin Negative (Negative) Urine Urobilinogen Normal (Normal) mg/dL Ur Leukocyte Esterase Trace H (Negative) Urine Microscopic RBC TNTC H (0-3) per hpf Urine Microscopic WBC 5-15 H (0-3) per hpf Ur Squamous Epith Cells Many H (None-Few) per lpf Urine Bacteria None Seen (None-Few) per hpf Hyaline Casts None Seen (None-Few) per lpf Ur Culture Indicated? NO. A (NO) 08/26/18 Range/Units 20:22 WBC (4.3-11.1) K/mcL RBC (3.82-4.97) M/mcL Hgb (11.5-15.4) g/dL Hct (35.3-44.9) % MCV (83.0-100.0) fL MCH (28.0-33.3) pg MCHC (31.6-35.5) g/dL RDW (11.5-14.5) % Plt Count (140-400) K/mcL MPV (9.4-12.4) fL Immature Gran % (0-4) % Seg Neutrophils % % Lymphocytes % % Monocytes % % Eosinophils % % Basophils % % Neutrophils # (1.6-8.9) K/mcL Lymphocytes # (0.6-4.6) K/mcL Monocytes # (0.0-1.3) K/mcL Eosinophils # (0.0-0.6) K/mcL Basophils # (0.0-0.2) K/mcL D-Dimer (0-500) ng/mLFEU Sodium 136 (136-145) mEq/L Potassium 3.7 (3.5-5.1) mEq/L Chloride 103 (98-107) mEq/L Carbon Dioxide 26 (23-29) mEq/L BUN 15 (6-20) mg/dL Creatinine 0.91 (0.60-1.20) mg/dL Est GFR ( Amer) > 60 (> 60) Est GFR (Non-Af Amer) > 60 (> 60) BUN/Creatinine Ratio 16 (6-26) Glucose 93 (70-105) mg/dL Calculated Osmolality 283 (280-300) Calcium 9.2 (8.6-10.3) mg/dL Troponin I < 0.03 (< 0.04) ng/mL Urine Color (Yellow) Urine Clarity (Clear) Urine pH (5.0-8.0) pH Units Ur Specific [place] (1.010-1.025) Urine Protein (Neg-Trace) mg/dL Urine Glucose (UA) (Normal) mg/dL Urine Ketones (Negative) mg/dL Urine Blood (Negative) Urine Nitrite (Negative) Urine Bilirubin (Negative) Urine Urobilinogen (Normal) mg/dL Ur Leukocyte Esterase (Negative) Urine Microscopic RBC (0-3) per hpf Urine Microscopic WBC (0-3) per hpf Ur Squamous Epith Cells (None-Few) per lpf Urine Bacteria (None-Few) per hpf Hyaline Casts (None-Few) per lpf Ur Culture Indicated? (NO)
[2018-08-26 23:52] LABS: Troponin I < 0.03 ng/mL (< 0.04)
--- NOTE | 2018-08-26 23:57 | Emergency Department Note ---
Disposition Clinical Impression: Chest pain Qualifiers: Chest pain type: other chest pain Qualified Code(s): R07.89 - Other chest pain Disposition: Admitted As Inpatient Condition: Good Referrals: Cole Bryant CNP [Primary Care Provider] - Forms: ED Satisfaction Letter Time of Disposition: 23:57 General Adult HPI - General Chief complaint: ED Chest Pain Stated complaint: "Chest Heaviness/Cough" Time Seen by Provider: 08/26/18 19:50 Source: patient Limitations: no limitations - History of Present Illness Pain Scale: 6 - Related Data Home Medications Medication Instructions Recorded Confirmed Aspirin 81 mg PO DAILY 05/09/15 06/17/18 Furosemide [Lasix] 20 mg PO DAILY 05/09/15 06/17/18 Ropinirole HCl [Requip] 2 mg PO HS 02/01/16 08/26/18 Diclofenac Sodium [Voltaren] 75 mg PO BID PRN 01/14/17 06/17/18 Melatonin [Melatin] 9 mg PO HS 07/08/17 08/26/18 Potassium Chloride [K-Tab ER] 20 meq PO Q48H 07/08/17 08/26/18 Folic Acid 1 mg PO DAILY 09/15/17 06/17/18 Methotrexate [Otrexup] 12.5 mg PO FR 09/15/17 08/26/18 Mv,Fe,Min/Lutein [A Thru Z Select 1 tab PO DAILY 09/15/17 08/26/18 Women's Tablet] DULoxetine [Cymbalta] 30 mg PO DAILY 01/26/18 06/17/18 Fluticasone/Vilanterol [Breo 1 puff IH DAILY 01/26/18 06/17/18 Ellipta 200-25 Mcg INH] Gabapentin [Neurontin] 800 mg PO TID 01/26/18 06/17/18 Losartan [Cozaar] 25 mg PO BID 01/26/18 08/26/18 Atorvastatin [Lipitor] 10 mg PO HS 06/17/18 06/17/18 Famotidine [Pepcid] 20 mg PO DAILY 06/17/18 06/17/18 Metoprolol Succinate [Toprol Xl] 25 mg PO BID 06/17/18 08/26/18 rOPINIRole [Requip] 1 mg PO DAILY 06/17/18 08/26/18 Previous Rx's Medication Instructions Recorded Ipratropium/Albuterol Neb [Duoneb] 3 ml IH [id number] PRN 30 Days #10 09/18/17 inhsol Promethazine [Phenergan] 12.5 mg PO Q6HR PRN #30 tablet 09/18/17 Nitroglycerin 0.4 mg SL Q5MIN PRN #1 bottle 01/30/18 Allergies Allergy/AdvReac Type Severity Reaction Status Date / Time nitrofurantoin AdvReac Mild Rash Verified 11/28/17 11:21 [From Macrobid] Constitutional: Denies: fever Cardiovascular: Reports: chest pain Respiratory: Reports: cough, dyspnea Gastrointestinal: Denies: abdominal pain, nausea, vomiting Genitourinary: Denies: urgency, dysuria, frequency Musculoskeletal: Denies: back pain Neurological: Denies: headache, weakness, numbness, paresthesias Past Medical History - Past Medical History Medical history: Reports: hyperlipidemia, hypertension, renal disease Surgical history: Reports: cholecystectomy, hysterectomy, LYNNE/BSO, AICD Psychiatric history: Reports: anxiety, depression MOLD CAPPER history: Reports: no MOLD CAPPER history - Social History Smoking Status: Former smoker Smokeless Tobacco Status: No Alcohol use: Reports: none Drug use: Reports: none Physical Exam - General Limitations: no limitations General appearance: alert Course - Reevaluation(s) Reevaluation #1: Chest X-Ray 08/26/18 19:52 IMPRESSION: No acute process. D/ / Anderson Hall MD / Anderson Hall MD Interpreting Provider: Anderson Hall MD Chest CTA 08/26/18 20:57 IMPRESSION: No PE identified. Mild infiltrates within the right lung which may related to infectious/inflammatory or post infectious/post inflammatory disease process. D/ / Yoandy Lawson MD / Yoandy Lawson MD Interpreting Provider: Yoandy Lawson MD Time: 23:56 Vital Signs Temperature 98.1 F 08/26/18 19:45 Pulse Rate 84 08/26/18 19:45 Respiratory Rate 20 08/26/18 19:45 Blood Pressure 111/64 08/26/18 19:45 O2 Sat by Pulse Oximetry 98 08/26/18 19:45 Temperature 98.1 F 08/26/18 19:45 Pulse Rate 90 08/26/18 22:48 Respiratory Rate 16 08/26/18 22:48 Blood Pressure 97/45 08/26/18 22:48 O2 Sat by Pulse Oximetry 97 08/26/18 22:48 Oxygen Delivery Oxygen Delivery Room Air Medical Decision Making - Lab Data Result diagrams: 08/26/18 20:22 08/26/18 20:22 Lab Results 08/26/18 08/26/18 08/26/18 Range/Units 20:15 20:22 20:22 WBC 9.7 (4.3-11.1) K/mcL RBC 4.30 (3.82-4.97) M/mcL Hgb 12.4 (11.5-15.4) g/dL Hct 38.5 (35.3-44.9) % MCV 89.5 (83.0-100.0) fL MCH 28.8 (28.0-33.3) pg MCHC 32.2 (31.6-35.5) g/dL RDW 14.3 (11.5-14.5) % Plt Count 321 (140-400) K/mcL MPV 9.1 L (9.4-12.4) fL Immature Gran % 0.3 (0-4) % Seg Neutrophils % 67.2 % Lymphocytes % 19.0 % Monocytes % 8.2 % Eosinophils % 4.6 % Basophils % 0.7 % Neutrophils # 6.5 (1.6-8.9) K/mcL Lymphocytes # 1.8 (0.6-4.6) K/mcL Monocytes # 0.8 (0.0-1.3) K/mcL Eosinophils # 0.4 (0.0-0.6) K/mcL Basophils # 0.1 (0.0-0.2) K/mcL D-Dimer 763 H (0-500) ng/mLFEU Sodium (136-145) mEq/L Potassium (3.5-5.1) mEq/L Chloride (98-107) mEq/L Carbon Dioxide (23-29) mEq/L BUN (6-20) mg/dL Creatinine (0.60-1.20) mg/dL Est GFR ( Amer) (> 60) Est GFR (Non-Af Amer) (> 60) BUN/Creatinine Ratio (6-26) Glucose (70-105) mg/dL Calculated Osmolality (280-300) Calcium (8.6-10.3) mg/dL Troponin I (< 0.04) ng/mL Urine Color Dark Yellow (Yellow) Urine Clarity Cloudy A (Clear) Urine pH 5.5 (5.0-8.0) pH Units Ur Specific [place] 1.013 (1.010-1.025) Urine Protein 30 H (Neg-Trace) mg/dL Urine Glucose (UA) Normal (Normal) mg/dL Urine Ketones Negative (Negative) mg/dL Urine Blood Large H (Negative) Urine Nitrite Negative (Negative) Urine Bilirubin Negative (Negative) Urine Urobilinogen Normal (Normal) mg/dL Ur Leukocyte Esterase Trace H (Negative) Urine Microscopic RBC TNTC H (0-3) per hpf Urine Microscopic WBC 5-15 H (0-3) per hpf Ur Squamous Epith Cells Many H (None-Few) per lpf Urine Bacteria None Seen (None-Few) per hpf Hyaline Casts None Seen (None-Few) per lpf Ur Culture Indicated? NO. A (NO) 08/26/18 Range/Units 20:22 WBC (4.3-11.1) K/mcL RBC (3.82-4.97) M/mcL Hgb (11.5-15.4) g/dL Hct (35.3-44.9) % MCV (83.0-100.0) fL MCH (28.0-33.3) pg MCHC (31.6-35.5) g/dL RDW (11.5-14.5) % Plt Count (140-400) K/mcL MPV (9.4-12.4) fL Immature Gran % (0-4) % Seg Neutrophils % % Lymphocytes % % Monocytes % % Eosinophils % % Basophils % % Neutrophils # (1.6-8.9) K/mcL Lymphocytes # (0.6-4.6) K/mcL Monocytes # (0.0-1.3) K/mcL Eosinophils # (0.0-0.6) K/mcL Basophils # (0.0-0.2) K/mcL D-Dimer (0-500) ng/mLFEU Sodium 136 (136-145) mEq/L Potassium 3.7 (3.5-5.1) mEq/L Chloride 103 (98-107) mEq/L Carbon Dioxide 26 (23-29) mEq/L BUN 15 (6-20) mg/dL Creatinine 0.91 (0.60-1.20) mg/dL Est GFR ( Amer) > 60 (> 60) Est GFR (Non-Af Amer) > 60 (> 60) BUN/Creatinine Ratio 16 (6-26) Glucose 93 (70-105) mg/dL Calculated Osmolality 283 (280-300) Calcium 9.2 (8.6-10.3) mg/dL Troponin I < 0.03 (< 0.04) ng/mL Urine Color (Yellow) Urine Clarity (Clear) Urine pH (5.0-8.0) pH Units Ur Specific [place] (1.010-1.025) Urine Protein (Neg-Trace) mg/dL Urine Glucose (UA) (Normal) mg/dL Urine Ketones (Negative) mg/dL Urine Blood (Negative) Urine Nitrite (Negative) Urine Bilirubin (Negative) Urine Urobilinogen (Normal) mg/dL Ur Leukocyte Esterase (Negative) Urine Microscopic RBC (0-3) per hpf Urine Microscopic WBC (0-3) per hpf Ur Squamous Epith Cells (None-Few) per lpf Urine Bacteria (None-Few) per hpf Hyaline Casts (None-Few) per lpf Ur Culture Indicated? (NO) Attestation Statement - Attestation Attestation: I examined this patient and my medical decision-making was reviewed with the Resident Physician. I agree with the documented findings, disposition and treatment plan as described except to the extent set forth below. Patient signed out to Dr. Abraham and I pending CTA. CTA is negative. Patient has not had a troponin so troponin was added. It is negative. Patient will be admitted to the hospitalist.
[2018-08-27] MEDS ORDERED: Azithromycin 500 MG in D5% in Water 250 ML IVPB ONE (00:12)
[2018-08-27] MEDS ORDERED: cefTRIAXone 1,000 MG in Water for inj. (sterile) 20 ML 10 ML IVP ONE (00:12)
--- NOTE | 2018-08-27 01:30 | Internal Med History&Physical ---
<Marco A Treadwell - Last Filed: 08/27/18 02:44> Date of Encounter: 08/27/18 Time of Encounter: 01:19 Internal Medicine - H&P: HPI Chief complaint: Chest heaviness Admitted From: Emergency Dept History of present illness: Ms. Lazo is a 53 year old female presenting with chest pressure. Patient has a history of sarcoidosis on methotrexate, cardiac disease related to sarcoidosis with defibrillator placement and pacemaker, recurrent kidney stones, fibromyalgia. Patient states that her chest heaviness started this afternoon around 2:00. She states that she has not been feeling for the past 3 days and suspects that she has a respiratory tract infection that she may have caught from her . had similar symptoms last week and is now coughing up sputum. Patient states that she has chills, night sweats, nausea without vomiting. Denies fever, cough, sputum. CTA done at ED shows no PE, however with mild infiltrates within the right lung possibly due to inflammatory disease process or infectious process. Patient was recently seen for nephrolithiasis. At that visit she was given pain medication but no other intervention was indicated. Imaging revealed bilateral nephrolithiasis. Endorses urinary frequency, flank pain, pain with urination. Urinalysis showed mild leukocyte esterase however also had epitheli al cells. Patient has symptoms of UTI including urinary frequency and urgency. Patient denies chest pain, pain that radiates to the shoulder or back, abdominal pain, chest pain with exertion. Had ED patient showed 1 negative EKG and one negative troponin. Patient has significant cardiac history related to her sarcoidosis. She sees a special librarian outside of [place]. According to her she had to have a pacemaker placed because her heart would "stop beating." Patient was seen early January at [place] for chest pain. At that visit she was given a nonexercise nuclear stress test which revealed a small perfusion defect in the apical inferior wall which may be due to ischemia. Echocardiogram done in August 2017 shows left ventricular ejection fraction 55-60% with mild diastolic dysfunction and no abnormal wall motion. For cardiac disease, patient is on atorvastatin, losartan, metoprolol succinate, and furosemide. Past Med Surg Social Fam HX - Past Medical History Medical history: hyperlipidemia, hypertension, renal disease Additional medical history: sarcoidosis. Bradycardia Psychiatric history: anxiety, depression - Past Surgical History Surgical History: cholecystectomy, hysterectomy, LYNNE/BSO, AICD Additional surgical history: lung biopsy. sarcoidosis - Social History Smoking Status: Former smoker Smokeless Tobacco Status: No Alcohol use: none Drug use: none - Family History Brother Family Member Ethnicity: Non- Living Status: Still Living Hx Family Endocrine Disorder: Yes Mother Family Member Ethnicity: Non- Living Status: Still Living Hx Family Respiratory Disorders: Yes (Asthma) Hx Family Neuromuscular Disorders: Yes Father Family Member Ethnicity: Non- Living Status: Still Living Hx Family Cardiac Disorders: Yes Hx Family Respiratory Disorders: No Hx Family GI Disorders: Yes Internal Medicine - H&P: Meds Aspirin 81 mg PO DAILY 05/09/15 [History] Furosemide [Lasix] 20 mg PO DAILY 05/09/15 [History] Ropinirole HCl [Requip] 2 mg PO BID 02/01/16 [History] Diclofenac Sodium [Voltaren] 75 mg PO BID PRN 01/14/17 [History] Melatonin [Melatin] 9 mg PO HS 07/08/17 [History] Folic Acid 1 mg PO DAILY 09/15/17 [History] Methotrexate [Otrexup] 12.5 mg PO FR 09/15/17 [History] Mv,Fe,Min/Lutein [A Thru Z [employer] Tablet] 1 tab PO DAILY 09/15/17 [History] Ipratropium/Albuterol Neb [Duoneb] 3 ml IH [id number] PRN 30 Days #10 inhsol 09/18/17 [Rx] Promethazine [Phenergan] 12.5 mg PO Q6HR PRN #30 tablet 09/18/17 [Rx] DULoxetine [Cymbalta] 30 mg PO DAILY 01/26/18 [History] Fluticasone/Vilanterol [Breo Ellipta 200-25 Mcg INH] 1 puff IH DAILY 01/26/18 [History] Gabapentin [Neurontin] 800 mg PO TID 01/26/18 [History] Losartan [Cozaar] 25 mg PO BID 01/26/18 [History] Nitroglycerin 0.4 mg SL Q5MIN PRN #1 bottle 01/30/18 [Rx] Atorvastatin [Lipitor] 10 mg PO HS 06/17/18 [History] Metoprolol Succinate [Toprol Xl] 25 mg PO BID 06/17/18 [History] Omeprazole [PriLOSEC] 20 mg PO DAILY 08/27/18 [History] Allergy/AdvReac Type Severity Reaction Status Date / Time nitrofurantoin AdvReac Mild Rash Verified 11/28/17 11:21 [From Macrobid] All Systems PM: A 10-system review of systems was performed and is negative for pertinent findings except as documented above in the HPI. - Constitutional Constitutional: chills, lethargy, night sweats, no fever(s) - Cardiovascular Cardiovascular ROS IM: chest pain, palpitations - Respiratory Respiratory: dyspnea, dyspnea on exertion, wheezing, no cough, no pain on inspiration, no chest congestion - Gastrointestinal Gastrointestinal: no abdominal pain, no constipation, no cramping - Genitourinary Genitourinary: urinary frequency, urinary urgency, no dysuria - Psychiatric Psychiatric: anxiety (On Cymbalta) - Constitutional Vitals: Temp Pulse Resp BP Pulse Ox 98.1 F 90 18 96/53 97 08/26/18 19:45 08/27/18 00:06 08/27/18 00:06 08/27/18 00:06 08/27/18 00:06 General appearance: Present: cooperative, A&O X 3, pleasant, no acute distress Exam: . - Head Head exam: Present: atraumatic, normal inspection - Eye Eye exam: Present: EOMI, normal appearance. Absent: conjuntiva pink - Neck Neck exam general surgery: Present: full ROM, supple, trachea midline - Respiratory Respiratory exam: Present: rales. Absent: accessory muscle use, chest wall tenderness, decreased breath sounds, prolonged expiratory phase, respiratory distress Additional comments: Mild rales heard in lower lung bases bilaterally - Cardiovascular Cardiovascular exam: Present: RRR, +S1, +S2 Additional comments: No chest wall tenderness. - GI/Abdominal GI/Abdominal exam: Present: hepatomegaly. Absent: rebound, soft, tenderness, no peritoneal signs - Extremities Exam Extremities exam: Present: normal capillary refill, normal inspection - Back Exam Back exam: Present: CVA tenderness (L), CVA tenderness (R) - Neurological Exam Neurological exam: Present: alert, oriented X3 - Psychiatric Psychiatric exam: Present: normal affect, normal mood - Skin Skin exam: Present: dry, intact, warm Internal Med - H&P Results - Labs CBC & Chem 7: 08/26/18 20:22 08/26/18 20:22 Labs: Short CBC 08/26/18 Range/Units 20:22 WBC 9.7 (4.3-11.1) K/mcL Hgb 12.4 (11.5-15.4) g/dL Hct 38.5 (35.3-44.9) % Plt Count 321 (140-400) K/mcL Neutrophils # 6.5 (1.6-8.9) K/mcL BMP 08/26/18 20:22 Sodium 136 Potassium 3.7 Chloride 103 Carbon Dioxide 26 BUN 15 Creatinine 0.91 Glucose 93 Calcium 9.2 Cardiac Enzymes 08/26/18 Range/Units 20:22 Troponin I < 0.03 (< 0.04) ng/mL Urine 08/26/18 Range/Units 20:15 Urine Color Dark Yellow (Yellow) Urine Clarity Cloudy A (Clear) Urine pH 5.5 (5.0-8.0) pH Units Ur Specific [place] 1.013 (1.010-1.025) Urine Protein 30 H (Neg-Trace) mg/dL Urine Glucose (UA) Normal (Normal) mg/dL - Impressions ITS Impressions Chest X-Ray 08/26/18 19:52 IMPRESSION: No acute process. D/ / Anderson Hall MD / Anderson Hall MD Interpreting Provider: Anderson Hall MD Chest CTA 08/26/18 20:57 IMPRESSION: No PE identified. Mild infiltrates within the right lung which may related to infectious/inflammatory or post infectious/post inflammatory disease process. D/ / Yoandy Lawson MD / Yoandy Lawson MD Interpreting Provider: Yoandy Lawson MD - Assessment and plan (1) Chest pain of uncertain etiology Current Visit: No Status: Acute Assessment and plan: 53-year-old female presenting with chest pressure with history of sarcoidosis, significant cardiac history, and sick contacts with respiratory tract infections. - - Considering respiratory tract infection is most likely source of chest pressure. CTA chest shows mild infiltrates in the right lung and ph ysical exam revealed mild rales in lower lung bases, and calcified granuloma and left lung base. Give her ceftriaxone and azithromycin. Continued patient's duoneb. Respiratory panel ordered. - Patient has significant cardiac history with sarcoidosis infiltration of heart, CHF, cardiac pacemaker and defibrillator. She had negative EKG and troponin in ED. We will continue to trend troponins. - DVT prophylaxis. (2) UTI (urinary tract infection) Current Visit: Yes Status: Acute Assessment and plan: Patient reports that she is having UTI symptoms including urinary frequency and urinary urgency. Urinalysis showed trace leukocyte esterase. Patient was given ceftriaxone for possible respiratory tract infection, which also covers UTI. Patient recently had kidney stone in January. Currently has bilateral flank tenderness. Qualifiers: Urinary tract infection type: site unspecified Hematuria presence: without hematuria Qualified Code(s): N39.0 - Urinary tract infection, site not specified (3) Hypotension Current Visit: Yes Status: Acute Assessment and plan: Patient presented with blood pressure of 99/65. Discontinue metoprolol and valsartan. Qualifiers: Hypotension type: unspecified hypotension type Qualified Code(s): I95.9 - Hypotension, unspecified (4) Sarcoidosis Current Visit: No Status: Chronic Assessment and plan: Continue methotrexate. - Time Spent With Patient Total time spent is greater than 50% in coordination of care (as documented) at patient's floor/unit and/or counseling patient: <Lobito Hensley - Last Filed: 08/27/18 04:17> Date of Encounter: 08/27/18 Internal Medicine - H&P: HPI History of present illness: Ms. Lazo is a 53 year old female All Systems PM: A 10-system review of systems was performed and is negative for pertinent findings except as documented above in the HPI. - Constitutional Vitals: Temp Pulse Resp BP Pulse Ox 97.6 F 64 16 99/65 93 08/27/18 02:12 08/27/18 02:12 08/27/18 02:12 08/27/18 02:12 08/27/18 02:12 Internal Med - H&P Results - Labs CBC & Chem 7: 08/26/18 20:22 08/26/18 20:22 Labs: Short CBC 08/26/18 Range/Units 20:22 WBC 9.7 (4.3-11.1) K/mcL Hgb 12.4 (11.5-15.4) g/dL Hct 38.5 (35.3-44.9) % Plt Count 321 (140-400) K/mcL Neutrophils # 6.5 (1.6-8.9) K/mcL BMP 08/26/18 20:22 Sodium 136 Potassium 3.7 Chloride 103 Carbon Dioxide 26 BUN 15 Creatinine 0.91 Glucose 93 Calcium 9.2 Cardiac Enzymes 08/26/18 Range/Units 20:22 Troponin I < 0.03 (< 0.04) ng/mL Urine 08/26/18 Range/Units 20:15 Urine Color Dark Yellow (Yellow) Urine Clarity Cloudy A (Clear) Urine pH 5.5 (5.0-8.0) pH Units Ur Specific [place] 1.013 (1.010-1.025) Urine Protein 30 H (Neg-Trace) mg/dL Urine Glucose (UA) Normal (Normal) mg/dL - Impressions ITS Impressions Chest X-Ray 08/26/18 19:52 IMPRESSION: No acute process. D/ / Anderson Hall MD / Anderson Hall MD Interpreting Provider: Anderson Hall MD Chest CTA 08/26/18 20:57 IMPRESSION: No PE identified. Mild infiltrates within the right lung which may related to infectious/inflammatory or post infectious/post inflammatory disease process. D/ / Yoandy Lawson MD / Yoandy Lawson MD Interpreting Provider: Yoandy Lawson MD - Time Spent With Patient Total time spent is greater than 50% in coordination of care (as documented) at patient's floor/unit and/or counseling patient: - Attending Attestation I saw and evaluated the patient. I reviewed the residents note, performed my own physical examination and agree with findings and plan as documented in the residents note. Patient seen and examined on 08/27/18. She presented to the emergency room with what she describes as chest heaviness. She also has some nausea but has not vomited. She denies chest pain and abdominal pain. Chest x-ray showed no acute process, however chest CTA showed mild infiltrates within the right lung which could be infectious or inflammatory. Patient does have a history of sarcoidosis, as well as exposure to upper respiratory pathogens according to the patient as she states her has a cough at home. On exam patient is nauseous but has clear breath sounds, heart rate regular rate and rhythm and abdomen nontender to palpation. Blood cultures not obtained in the emergency room prior to initiating antibiotics. We will continue antibiotics at this time, continue patient's methotrexate and obtain labs in the morning. We will also continue to trend troponins as well. Patient also will receive as needed breathing tona atments.
[2018-08-27] MEDS ORDERED: Diclofenac Sodium 75 MG TABLET PO PRN (02:26)
[2018-08-27] MEDS ORDERED: Ipratropium/Albuterol Neb 3 ML IH PRN (02:26)
[2018-08-27] MEDS ORDERED: Naloxone 0.4 MG/ML INJ IVP PRN (02:29)
[2018-08-27] MEDS ORDERED: Azithromycin 250 MG TABLET PO ONE (04:00)
[2018-08-27] MEDS ORDERED: Ondansetron 4 MG/2 ML VIAL IVP PRN (04:10)
[2018-08-27 04:52] LABS: Basophils # 0.1 K/mcL (0.0-0.2); Basophils % 0.9 %; Eosinophils # 0.4 K/mcL (0.0-0.6); Eosinophils % 5.9 %; Hematocrit 39.2 % (35.3-44.9); Hemoglobin 12.2 g/dL (11.5-15.4); Immature Granulocytes % 0.3 % (0-4); Lymphocytes # 1.5 K/mcL (0.6-4.6); Lymphocytes % 22.2 %; Mean Corpuscular HGB Conc 31.1 g/dL (31.6-35.5); Mean Corpuscular Hemoglobin 28.4 pg (28.0-33.3); Mean Corpuscular Volume 91.4 fL (83.0-100.0); Mean Platelet Volume 9.1 fL (9.4-12.4); Monocytes # 0.6 K/mcL (0.0-1.3); Monocytes % 9.1 %; Neutrophils # 4.2 K/mcL (1.6-8.9); Platelet Count 308 K/mcL (140-400); Red Blood Count 4.29 M/mcL (3.82-4.97); Red Cell Distribution Width 14.4 % (11.5-14.5); Segmented Neutrophils % 61.6 %
[2018-08-27 05:11] LABS: BUN/Creatinine Ratio 13 (6-26); Blood Urea Nitrogen 12 mg/dL (6-20); Calcium 8.9 mg/dL (8.6-10.3); Carbon Dioxide 29 mEq/L (23-29); Chloride 107 mEq/L (98-107); Glucose 161 mg/dL (70-105); Osmolality,Calculated 291 (280-300); Potassium 3.5 mEq/L (3.5-5.1); Sodium 139 mEq/L (136-145); eGFR For Non-African Americans > 60 (> 60)
[2018-08-27] MEDS: *HR* Heparin 5,000 UNIT/ML VIAL SQ SCH ×2 (05:58→17:26)
[2018-08-27 07:09] LABS: Adenovirus Not Detected (Not Detect); Bordetella Pertussis Not Detected (Not Detect); Chlamydophila pneumoniae Not Detected (Not Detect); Coronavirus 229E Not Detected (Not Detect); Coronavirus HKU1 Not Detected (Not Detect); Coronavirus NL63 Not Detected (Not Detect); Coronavirus OC43 Not Detected (Not Detect); Human Metapneumovirus Not Detected (Not Detect); Human Rhinovirus/Enterovirus Not Detected (Not Detect); Influenza A Subtype 2009 H1 Not Detected (Not Detect); Influenza A Untypeable Not Detected (Not Detect); Influenza B Not Detected (Not Detect); Mycoplasma pneumoniae Not Detected (Not Detect); Parainfluenza Virus 1 Not Detected (Not Detect); Parainfluenza Virus 2 Not Detected (Not Detect); Parainfluenza Virus 3 Not Detected (Not Detect); Parainfluenza Virus 4 Not Detected (Not Detect); Respiratory Syncytial Virus Not Detected (Not Detect)
[2018-08-27] MEDS: Aspirin 81 MG TAB.CHEW PO SCH (09:23)
[2018-08-27] MEDS: rOPINIRole 1 MG TABLET PO SCH ×2 (09:23→21:12)
[2018-08-27] MEDS: Gabapentin 400 MG CAPSULE PO SCH ×3 (09:23→21:12)
--- NOTE | 2018-08-27 10:12 | Event Note ---
Date of Encounter: 08/27/18 Time of Encounter: 10:07 53-year-old female with past medical history of cardiac sarcoidosis, status post pacemaker, kidney stone, and CAD presented with chest pressure, associated with cough. She also reported bilateral flank pain with associated urinary urgency and frequency. ED workup showed EKG with paced rhythm without abnormal ST-T change, normal troponin. UA revealed elevated RBC and WBC. CTA chest showed no PE, left lung field tree-in-bud change, suspicious for infection. - Chest pain likely is related to pneumonia, we will continue cycle troponin, telemetry monitoring, and EKG as needed. At this point, no need for further cardiac workup unless patient has new clinical findings pointing to cardiac etiology. continue IV abx. - Likely pt having a renal colic caused by renal stone given flank pain and large amount of RBC in the urine. Pending urine culture, continue current antibiotics with Rocephin. - May change to oral abx if pt continues to do well.
[2018-08-27] MEDS: Menthol 9.1 MG LOZENGE PO PRN (20:25)
[2018-08-27] MEDS ORDERED: Melatonin 3 MG TABLET PO SCH (21:00)
[2018-08-27] MEDS ORDERED: Acetaminophen 325 MG TABLET PO ONE (21:26)
[2018-08-28] MEDS: Menthol 9.1 MG LOZENGE PO PRN (03:03)
[2018-08-28] MEDS: *HR* Heparin 5,000 UNIT/ML VIAL SQ SCH (05:45)
[2018-08-28 06:56] LABS: Basophils % 0.7 %; Eosinophils # 0.5 K/mcL (0.0-0.6); Eosinophils % 7.8 %; Hematocrit 38.5 % (35.3-44.9); Hemoglobin 11.9 g/dL (11.5-15.4); Immature Granulocytes % 0.2 % (0-4); Lymphocytes # 1.4 K/mcL (0.6-4.6); Lymphocytes % 23.5 %; Mean Corpuscular HGB Conc 30.9 g/dL (31.6-35.5); Mean Corpuscular Hemoglobin 28.5 pg (28.0-33.3); Mean Corpuscular Volume 92.1 fL (83.0-100.0); Mean Platelet Volume 9.1 fL (9.4-12.4); Monocytes # 0.6 K/mcL (0.0-1.3); Monocytes % 10.8 %; Neutrophils # 3.4 K/mcL (1.6-8.9); Platelet Count 290 K/mcL (140-400); Red Blood Count 4.18 M/mcL (3.82-4.97); Red Cell Distribution Width 14.1 % (11.5-14.5)
[2018-08-28 07:07] VITALS: BP 110/65
[2018-08-28 07:15] LABS: BUN/Creatinine Ratio 13 (6-26); Blood Urea Nitrogen 12 mg/dL (6-20); Calcium 8.9 mg/dL (8.6-10.3); Carbon Dioxide 29 mEq/L (23-29); Chloride 107 mEq/L (98-107); Glucose 103 mg/dL (70-105); Osmolality,Calculated 292 (280-300); Potassium 4.2 mEq/L (3.5-5.1); Sodium 141 mEq/L (136-145); eGFR For Non-African Americans > 60 (> 60)
[2018-08-28] MEDS: Gabapentin 400 MG CAPSULE PO SCH (07:59)
[2018-08-28] MEDS: Aspirin 81 MG TAB.CHEW PO SCH (07:59)
[2018-08-28] MEDS: rOPINIRole 1 MG TABLET PO SCH (07:59)
[2018-08-28] MEDS ORDERED: Azithromycin 250 MG TABLET PO SCH (09:00)
[2018-08-28] MEDS ORDERED: cefTRIAXone 1,000 MG in Water for inj. (sterile) 20 ML 10 ML IVP SCH (09:00)
[2018-08-28] MEDS ORDERED: *HR* OxyCODONE/APAP 5/325 TABLET PO PRN (09:59)
--- NOTE | 2018-08-28 14:06 | Discharge Summary ---
- NOTES TO OUTPATIENT PROVIDER Notes to Outpatient Provider: Follow up with PCP in one week Date of Encounter: 08/28/18 Time of Encounter: 14:00 - Discharge Diagnosis (1) Pneumonia Priority: Primary Status: Acute Qualifiers: Pneumonia type: due to unspecified organism Laterality: right Lung location: unspecified part of lung Qualified Code(s): J18.9 - Pneumonia, unspecified organism (2) Sarcoidosis Priority: Secondary Status: Chronic (3) Chest pain of uncertain etiology Priority: Secondary Status: Ruled-out (4) Hypotension Priority: Secondary Status: Resolved Qualifiers: Hypotension type: unspecified hypotension type Qualified Code(s): I95.9 - Hypotension, unspecified (5) Chronic back pain Priority: Secondary Status: Acute Qualifiers: Back pain location: low back pain Back pain laterality: midline Sciatica presence: unspecified whether sciatica present Qualified Code(s): M54.5 - Low back pain; G89.29 - Other chronic pain; G89.29 - Other chronic pain Hospital course: Ms. 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 She did mention she has not been feeling well for the past 3 days and suspects that she has a respiratory tract infection that she may have caught from her . CTA done at ED shows no PE, however with mild infiltrates within the right lung possibly due to inflammatory disease process or infectious process. Patient was admitted in the hospital for her pneumonia and started on empirical antibiotic Rocephin and azithromycin. Her symptoms started improving slowly. She did complaining about right flank pain also so with known history of renal calculi, I did repeat another CT of the abdomen and pelvis which did not show any more renal calculi. Her urine analysis did not show any bacteria. Her respiratory viral panel came back is negative too. Now patient is tolerating oral intake well and she is breathing comfortably on room air. So will discharge her home in a stable condition today with oral antibiotic for 5 more days - Time Spent with Patient Total time spent providing and/or coordinating discharge services: - Discharge Medications Prescriptions: Azithromycin [Zithromax] 250 mg PO Q24H #3 tablet Cephalexin [Keflex] 500 mg PO TID #15 capsule Home Medications: Aspirin 81 mg PO DAILY 05/09/15 [History] Furosemide [Lasix] 20 mg PO DAILY 05/09/15 [History] Diclofenac Sodium [Voltaren] 75 mg PO BID PRN 01/14/17 [History] Folic Acid 1 mg PO DAILY 09/15/17 [History] Methotrexate [Otrexup] 12.5 mg PO FR 09/15/17 [History] Mv,Fe,Min/Lutein [A Thru Z [employer]'s Tablet] 1 tab PO DAILY 09/15/17 [History] Ipratropium/Albuterol Neb [Duoneb] 3 ml IH [id number] PRN 30 Days #10 inhsol 09/18/17 [Rx] Promethazine [Phenergan] 12.5 mg PO Q6HR PRN #30 tablet 09/18/17 [Rx] Fluticasone/Vilanterol [Breo Ellipta 200-25 Mcg INH] 1 puff IH DAILY 01/26/18 [History] Losartan [Cozaar] 25 mg PO BID 01/26/18 [History] Nitroglycerin 0.4 mg SL Q5MIN PRN #1 bottle 01/30/18 [Rx] Atorvastatin [Lipitor] 10 mg PO HS 06/17/18 [History] Metoprolol Succinate [Toprol Xl] 25 mg PO BID 06/17/18 [History] Duloxetine HCl [Cymbalta] 60 mg PO DAILY 08/27/18 [History] Gabapentin [Neurontin] 600 mg PO TID 08/27/18 [History] Melatonin 10 mg PO HS 08/27/18 [History] Omeprazole [PriLOSEC] 40 mg PO DAILY 08/27/18 [History] Ropinirole HCl [Requip] 1 mg PO QAM 08/27/18 [History] Ropinirole HCl [Requip] 2 mg PO HS 08/27/18 [History] Azithromycin [Zithromax] 250 mg PO Q24H #3 tablet 08/28/18 [Rx] Cephalexin [Keflex] 500 mg PO TID #15 capsule 08/28/18 [Rx] Allergies/Adverse Reactions: Allergy/AdvReac Type Severity Reaction Status Date / Time nitrofurantoin AdvReac Mild Rash Verified 11/28/17 11:21 [From Macrobid] Date of admission: 08/27/18 00:32 Primary care physician: Cole Bryant CNP - Constitutional Vitals: Temp Pulse Resp BP Pulse Ox 98.4 F 72 16 110/65 93 08/28/18 11:49 08/28/18 11:49 08/28/18 11:49 08/28/18 11:49 08/28/18 11:49 General appearance: Present: cooperative, A&O X 3, pleasant, no acute distress Exam: Gen: Alert, awake, Oriented to time,place and person Chest: Diminished breath sounds B/L, No wheezing, No crackles, No rales Heart: S1S2+ RRR No murmurs Abd: Soft, NT, BS +, No organomegaly Ext: No edema, pulses are palpable, No calf tenderness Neuro : Benign findings Skin: No rash. - Patient Status Disposition: Home, Self-Care Condition: Good Overall status at discharge: patient is back to baseline - Discharge Instructions Follow Up With: Cole Bryant CNP [Primary Care Provider] - 08/31/18 8:45 am - Diet and Activity Activity: increase activity as tolerated Diet: low salt diet
--- NOTE | 2018-08-28 16:36 | Electrocardiograph Report ---
[address] [place], [place] [address] Test Date: 2018-08-26 Pat Name: Mary Lazo Department: [id number] Room: 3B Gender: F Film Splicer: : 1965 Requested By: Rigoberto Shin Order Number: [id number] Reading MD: Brooke Soni Measurements Intervals [place] Rate: 69 P: 54 WI: 151 QRS: -77 QRSD: 140 T: 62 QT: 421 QTc: 451 Interpretive Statements Atrial-sensed ventricular-paced rhythm Electronically Signed On 08-28-2018 16:34:54 EST by Brooke Soni
[2018-09-01] MEDS ORDERED: *HR* Methotrexate 2.5 MG TABLET PO SCH (09:00)
== END 2018-08-28 15:09 | disposition home or self-care (01) ==
LOC: EMEROOARM 19:43 → 3BNU 19:43 → SUATTDRO 08-27 00:32 → 3BNU 08-27 01:32
PROVIDERS: ADMIT Internal Medicine; ATTEND Family Medicine

== ENCOUNTER 2020-04-23 13:20 | Observation (INO) ==
[2020-04-23 15:04] LABS: Basophils % 0.3 %; Eosinophils # 0.4 K/mcL (0.0-0.6); Eosinophils % 5.4 %; Hematocrit 39.8 % (35.3-44.9); Hemoglobin 12.2 g/dL (11.5-15.4); Immature Granulocytes % 0.4 % (0-4); Lymphocytes # 1.9 K/mcL (0.6-4.6); Lymphocytes % 24.3 %; Mean Corpuscular HGB Conc 30.7 g/dL (31.6-35.5); Mean Corpuscular Hemoglobin 27.6 pg (28.0-33.3); Mean Platelet Volume 9.4 fL (9.4-12.4); Monocytes # 0.5 K/mcL (0.0-1.3); Monocytes % 5.9 %; Neutrophils # 5.1 K/mcL (1.6-8.9); Platelet Count 273 K/mcL (140-400); Red Blood Count 4.42 M/mcL (3.82-4.97); Red Cell Distribution Width 15.2 % (11.5-14.5); Segmented Neutrophils % 63.7 %; White Blood Count 7.9 K/mcL (4.3-11.1)
[2020-04-23 15:09] LABS: Prothrombin Time 10.8 Seconds (9.4-12.1)
[2020-04-23 15:12] LABS: Activated Partial Thrombo Time 30.4 Seconds (26.0-36.0)
[2020-04-23 15:24] LABS: Troponin I < 0.03 ng/mL (< 0.04)
[2020-04-23] MEDS ORDERED: Isovue-370 500 ML BOTTLE IVP ONE (15:24)
[2020-04-23 15:26] LABS: Alanine Aminotransferase 24 Units/L (7-52); Albumin 3.8 g/dL (3.5-5.7); Albumin/Globulin Ratio 1.5 (1.1-2.2); Alkaline Phosphatase 90 Units/L (34-104); Aspartate Amino Transferase 24 Units/L (13-39); BUN/Creatinine Ratio 13 (6-26); Bilirubin,Direct 0.1 mg/dL (0.0-0.2); Bilirubin,Indirect 0.5 mg/dL (0.0-1.0); Bilirubin,Total 0.6 mg/dL (0.3-1.0); Blood Urea Nitrogen 10 mg/dL (6-20); Calcium 8.3 mg/dL (8.6-10.3); Carbon Dioxide 27 mEq/L (23-29); Chloride 105 mEq/L (98-107); Globulin 2.6 g/dL (2.4-3.5); Glucose 97 mg/dL (70-105); Magnesium 2.2 mg/dL (1.6-2.6); Osmolality,Calculated 287 (280-300); Phosphorous 2.5 mg/dL (2.7-4.5); Potassium 3.7 mEq/L (3.5-5.1); Sodium 139 mEq/L (136-145); Total Protein 6.4 g/dL (6.4-8.9); eGFR For African Americans > 60 (> 60); eGFR For Non-African Americans > 60 (> 60)
[2020-04-23] MEDS ORDERED: Ondansetron 4 MG/2 ML VIAL IVP PRN (18:07)
[2020-04-23] MEDS ORDERED: Acetaminophen 325 MG TABLET PO PRN (18:07)
[2020-04-23] MEDS ORDERED: Naloxone 0.4 MG/ML INJ IVP PRN (18:07)
[2020-04-23 18:58] LABS: Adenovirus Not Detected (Not Detect); Bordetella Pertussis Not Detected (Not Detect); Chlamydophila pneumoniae Not Detected (Not Detect); Coronavirus 229E Not Detected (Not Detect); Coronavirus HKU1 Not Detected (Not Detect); Coronavirus NL63 Not Detected (Not Detect); Coronavirus OC43 Not Detected (Not Detect); Human Metapneumovirus Not Detected (Not Detect); Human Rhinovirus/Enterovirus DETECTED (Not Detect); Influenza A Subtype 2009 H1 Not Detected (Not Detect); Influenza B Not Detected (Not Detect); Mycoplasma pneumoniae Not Detected (Not Detect); Parainfluenza Virus 1 Not Detected (Not Detect); Parainfluenza Virus 2 Not Detected (Not Detect); Parainfluenza Virus 3 Not Detected (Not Detect); Parainfluenza Virus 4 Not Detected (Not Detect); Respiratory Syncytial Virus Not Detected (Not Detect)
[2020-04-23 19:00] LABS: SARS-CoV-2 Not Detected (Not Detect)
[2020-04-23] MEDS ORDERED: Morphine Sulfate 2 MG/ML SYRINGE IVP PRN (19:07)
[2020-04-23] MEDS: Pregabalin 75 MG CAPSULE PO SCH (20:24)
[2020-04-23] MEDS: rOPINIRole 1 MG TABLET PO SCH (20:24)
[2020-04-23] MEDS: Folic Acid 1 MG TABLET PO SCH (20:24)
[2020-04-23] MEDS: *HR* Heparin 5,000 UNIT/ML VIAL SQ SCH (20:25)
[2020-04-23] MEDS ORDERED: Metoprolol XL (24 HR) Succ 25 MG TAB.ER.24H PO SCH (21:00)
[2020-04-24 01:04] LABS: Hemoglobin 12.8 g/dL (11.5-15.4); Mean Corpuscular HGB Conc 30.5 g/dL (31.6-35.5); Mean Corpuscular Hemoglobin 28.5 pg (28.0-33.3); Mean Corpuscular Volume 93.5 fL (83.0-100.0); Mean Platelet Volume 9.2 fL (9.4-12.4); Platelet Count 274 K/mcL (140-400); Red Blood Count 4.49 M/mcL (3.82-4.97); Red Cell Distribution Width 15.3 % (11.5-14.5); White Blood Count 7.6 K/mcL (4.3-11.1)
[2020-04-24 01:25] LABS: BUN/Creatinine Ratio 11 (6-26); Blood Urea Nitrogen 10 mg/dL (6-20); Calcium 8.6 mg/dL (8.6-10.3); Carbon Dioxide 27 mEq/L (23-29); Chloride 107 mEq/L (98-107); Chol/HDL Ratio 3.2 (0-4.9); Cholesterol 177 mg/dL (< 200); Glucose 102 mg/dL (70-105); HDL Cholesterol 55 mg/dL (40-59); LDL Cholesterol,Calculated 96 mg/dL (< 100); Magnesium 2.5 mg/dL (1.6-2.6); Osmolality,Calculated 291 (280-300); Potassium 3.5 mEq/L (3.5-5.1); Sodium 141 mEq/L (136-145); Triglycerides 128 mg/dL (< 150); eGFR For African Americans > 60 (> 60); eGFR For Non-African Americans > 60 (> 60)
[2020-04-24] MEDS: *HR* Heparin 5,000 UNIT/ML VIAL SQ SCH (05:28)
[2020-04-24] MEDS ORDERED: Aspirin 81 MG TAB.CHEW PO SCH (09:00)
[2020-04-24] MEDS ORDERED: Budesonide/Formoterol 80/4.5 1 PUFF INH IH SCH (10:00)
[2020-04-24 10:20] VITALS: BP 113/66
[2020-04-24] MEDS: Folic Acid 1 MG TABLET PO SCH (12:56)
[2020-04-24] MEDS: rOPINIRole 1 MG TABLET PO SCH (12:56)
[2020-04-24] MEDS: Pregabalin 75 MG CAPSULE PO SCH (12:56)
== END 2020-04-24 14:45 | disposition home or self-care (01) ==
LOC: 3BNU 13:20 → EMEROOARM 13:20 → SUATTDRO 17:21 → 3BNU 19:50
PROVIDERS: ADMIT Family Medicine; ATTEND Student in an Organized Health Care Education/Training Program

== ENCOUNTER 2021-06-03 17:06 | Inpatient (IN) ==
[2021-06-03] MEDS ORDERED: Ondansetron 4 MG/2 ML VIAL IVP PRN ×2 (18:22→23:34)
[2021-06-03] MEDS ORDERED: 0.9 % Sodium Chloride 500 ML IV ONE (18:24)
[2021-06-03 18:47] LABS: Basophils % 0.5 %; Hematocrit 41.8 % (35.3-44.9); Hemoglobin 13.4 g/dL (11.5-15.4); Immature Granulocytes % 0.5 % (0-4); Lymphocytes # 0.9 K/mcL (0.6-4.6); Lymphocytes % 19.8 %; Mean Corpuscular HGB Conc 32.1 g/dL (31.6-35.5); Mean Corpuscular Hemoglobin 27.9 pg (28.0-33.3); Mean Corpuscular Volume 86.9 fL (83.0-100.0); Mean Platelet Volume 10.2 fL (9.4-12.4); Monocytes # 0.2 K/mcL (0.0-1.3); Monocytes % 3.9 %; Neutrophils # 3.3 K/mcL (1.6-8.9); Platelet Count 176 K/mcL (140-400); Red Blood Count 4.81 M/mcL (3.82-4.97); Red Cell Distribution Width 15.5 % (11.5-14.5); Segmented Neutrophils % 75.3 %; White Blood Count 4.4 K/mcL (4.3-11.1)
[2021-06-03 19:09] LABS: Platelet Estimate Normal (Normal); Reactive Lymphocytes Present (Not Present)
[2021-06-03 19:16] LABS: BUN/Creatinine Ratio 8 (6-26); Blood Urea Nitrogen 9 mg/dL (6-20); Calcium 8.3 mg/dL (8.6-10.3); Carbon Dioxide 27 mEq/L (23-29); Chloride 98 mEq/L (98-107); Glucose 119 mg/dL (70-105); Osmolality,Calculated 278 (280-300); Potassium 3.7 mEq/L (3.5-5.1); Sodium 134 mEq/L (136-145); Troponin I < 0.03 ng/mL (< 0.04); eGFR For African Americans > 60 (> 60); eGFR For Non-African Americans 54 (> 60)
[2021-06-03] MEDS ORDERED: Isovue-370 500 ML BOTTLE IVP ONE (19:58)
[2021-06-03 20:05] LABS: C-Reactive Protein 64 mg/L (Less than 10); Ferritin 411 ng/mL (10-120)
[2021-06-03 21:05] LABS: Lactate Dehydrogenase 348 Units/L (140-271); Magnesium 1.7 mg/dL (1.6-2.6); Phosphorous 1.6 mg/dL (2.7-4.5)
[2021-06-03 22:33] LABS: INR 1.2; Prothrombin Time 14.3 Seconds (9.4-12.1)
[2021-06-03 22:35] LABS: Activated Partial Thrombo Time 34.7 Seconds (26.0-36.0)
[2021-06-03] MEDS ORDERED: Ipratropium 1 PUFF INHALER IH PRN (23:34)
[2021-06-03] MEDS ORDERED: Naloxone 0.4 MG/ML INJ IVP PRN (23:34)
[2021-06-04] MEDS ORDERED: Furosemide 20 MG TABLET PO PRN (02:38)
[2021-06-04 02:40] LABS: Mean Corpuscular HGB Conc 31.7 g/dL (31.6-35.5); Mean Corpuscular Hemoglobin 27.8 pg (28.0-33.3); Mean Corpuscular Volume 87.6 fL (83.0-100.0); Mean Platelet Volume 10.6 fL (9.4-12.4); Platelet Count 170 K/mcL (140-400); Red Blood Count 4.68 M/mcL (3.82-4.97); Red Cell Distribution Width 15.8 % (11.5-14.5); White Blood Count 4.1 K/mcL (4.3-11.1)
[2021-06-04 02:59] LABS: BUN/Creatinine Ratio 10 (6-26); Blood Urea Nitrogen 10 mg/dL (6-20); Calcium 8.2 mg/dL (8.6-10.3); Carbon Dioxide 27 mEq/L (23-29); Chloride 100 mEq/L (98-107); Creatine Kinase 366 Units/L (30-223); Glucose 128 mg/dL (70-105); Osmolality,Calculated 281 (280-300); Potassium 3.8 mEq/L (3.5-5.1); Sodium 135 mEq/L (136-145); eGFR For African Americans > 60 (> 60); eGFR For Non-African Americans 55 (> 60)
[2021-06-04 03:03] LABS: C-Reactive Protein 63 mg/L (Less than 10)
[2021-06-04 03:19] LABS: Ferritin 440 ng/mL (10-120)
[2021-06-04] MEDS: rOPINIRole 1 MG TABLET PO SCH ×3 (04:14→20:24)
[2021-06-04] MEDS ORDERED: Cholecalciferol (D-3) 1,000 UNIT (25MCG) TABLET PO SCH (09:00)
[2021-06-04] MEDS: Cyanocobalamin (B-12) 1,000 MCG TABLET PO SCH (10:21)
[2021-06-04] MEDS: Metoprolol XL (24 HR) Succ 25 MG TAB.ER.24H PO SCH (10:21)
[2021-06-04] MEDS: Loratadine 10 MG TABLET PO SCH (10:21)
[2021-06-04] MEDS: Pregabalin 75 MG CAPSULE PO SCH ×2 (10:22→20:23)
[2021-06-04] MEDS: Folic Acid 1 MG TABLET PO SCH (10:22)
[2021-06-04] MEDS: Ipratropium 1 PUFF INHALER IH SCH ×3 (12:01→21:35)
[2021-06-04] MEDS: Cholecalciferol (D-3) 1,000 UNIT (25MCG) TABLET PO SCH (13:16)
[2021-06-04] MEDS: *HR* Enoxaparin 40 MG/0.4 ML SYRINGE SQ SCH (16:09)
[2021-06-04] MEDS: tiZANidine 4 MG TABLET PO PRN (17:31)
[2021-06-04] MEDS ORDERED: Acetaminophen IV 1,000 MG/100 ML BAG IVPB ONE (19:41)
[2021-06-05 01:38] LABS: Basophils % 0.3 %; Hematocrit 42.9 % (35.3-44.9); Hemoglobin 13.5 g/dL (11.5-15.4); Immature Granulocytes % 0.5 % (0-4); Lymphocytes % 14.9 %; Mean Corpuscular HGB Conc 31.5 g/dL (31.6-35.5); Mean Corpuscular Hemoglobin 27.8 pg (28.0-33.3); Mean Corpuscular Volume 88.3 fL (83.0-100.0); Mean Platelet Volume 10.2 fL (9.4-12.4); Monocytes # 0.3 K/mcL (0.0-1.3); Monocytes % 4.2 %; Neutrophils # 5.1 K/mcL (1.6-8.9); Platelet Count 193 K/mcL (140-400); Red Blood Count 4.86 M/mcL (3.82-4.97); Red Cell Distribution Width 15.6 % (11.5-14.5); Segmented Neutrophils % 80.1 %
[2021-06-05 01:39] LABS: White Blood Count 6.4 K/mcL (4.3-11.1)
[2021-06-05 01:57] LABS: BUN/Creatinine Ratio 13 (6-26); Blood Urea Nitrogen 11 mg/dL (6-20); Carbon Dioxide 24 mEq/L (23-29); Chloride 102 mEq/L (98-107); Glucose 239 mg/dL (70-105); Magnesium 1.9 mg/dL (1.6-2.6); Osmolality,Calculated 287 (280-300); Potassium 4.1 mEq/L (3.5-5.1); Sodium 135 mEq/L (136-145); eGFR For African Americans > 60 (> 60); eGFR For Non-African Americans > 60 (> 60)
[2021-06-05 02:00] LABS: Platelet Estimate Normal (Normal); Reactive Lymphocytes Present (Not Present)
[2021-06-05] MEDS: Ipratropium 1 PUFF INHALER IH SCH ×4 (04:08→23:00)
[2021-06-05] MEDS: *HR* Enoxaparin 40 MG/0.4 ML SYRINGE SQ SCH (05:48)
[2021-06-05] MEDS ORDERED: Furosemide 40 MG/4 ML VIAL IVP ONE (07:45)
[2021-06-05] MEDS: Loratadine 10 MG TABLET PO SCH (08:35)
[2021-06-05] MEDS: Metoprolol XL (24 HR) Succ 25 MG TAB.ER.24H PO SCH (08:35)
[2021-06-05] MEDS: Pregabalin 75 MG CAPSULE PO SCH ×2 (08:35→21:49)
[2021-06-05] MEDS: rOPINIRole 1 MG TABLET PO SCH ×2 (08:35→21:50)
[2021-06-05] MEDS: Folic Acid 1 MG TABLET PO SCH (08:35)
[2021-06-05] MEDS: Cyanocobalamin (B-12) 1,000 MCG TABLET PO SCH (08:36)
[2021-06-05] MEDS: Aspirin 81 MG TAB.CHEW PO SCH (08:36)
[2021-06-05] MEDS: Cholecalciferol (D-3) 1,000 UNIT (25MCG) TABLET PO SCH (08:36)
[2021-06-05] MEDS: Acetaminophen 325 MG TABLET PO PRN ×2 (08:47→15:04)
[2021-06-06] MEDS: Ipratropium 1 PUFF INHALER IH SCH ×4 (04:04→21:56)
[2021-06-06] MEDS: *HR* Enoxaparin 40 MG/0.4 ML SYRINGE SQ SCH (06:12)
[2021-06-06] MEDS: Acetaminophen 325 MG TABLET PO PRN (06:34)
[2021-06-06] MEDS: Pregabalin 75 MG CAPSULE PO SCH ×2 (08:30→21:51)
[2021-06-06] MEDS: Folic Acid 1 MG TABLET PO SCH (08:30)
[2021-06-06] MEDS: Metoprolol XL (24 HR) Succ 25 MG TAB.ER.24H PO SCH (08:30)
[2021-06-06] MEDS: Aspirin 81 MG TAB.CHEW PO SCH (08:30)
[2021-06-06] MEDS: Cyanocobalamin (B-12) 1,000 MCG TABLET PO SCH (08:30)
[2021-06-06] MEDS: Loratadine 10 MG TABLET PO SCH (08:30)
[2021-06-06] MEDS: rOPINIRole 1 MG TABLET PO SCH ×2 (08:30→21:52)
[2021-06-06] MEDS: Cholecalciferol (D-3) 1,000 UNIT (25MCG) TABLET PO SCH (08:30)
[2021-06-06] MEDS: Furosemide 40 MG/4 ML VIAL IVP SCH (08:32)
[2021-06-06 10:43] LABS: Hematocrit 38.8 % (35.3-44.9); Hemoglobin 12.4 g/dL (11.5-15.4); Mean Corpuscular Hemoglobin 27.9 pg (28.0-33.3); Mean Corpuscular Volume 87.2 fL (83.0-100.0); Mean Platelet Volume 10.1 fL (9.4-12.4); Platelet Count 221 K/mcL (140-400); Red Blood Count 4.45 M/mcL (3.82-4.97); Red Cell Distribution Width 15.8 % (11.5-14.5); White Blood Count 8.1 K/mcL (4.3-11.1)
[2021-06-06 10:47] LABS: BUN/Creatinine Ratio 16 (6-26); Blood Urea Nitrogen 16 mg/dL (6-20); Calcium 8.9 mg/dL (8.6-10.3); Carbon Dioxide 29 mEq/L (23-29); Chloride 97 mEq/L (98-107); Glucose 157 mg/dL (70-105); Magnesium 1.8 mg/dL (1.6-2.6); Osmolality,Calculated 284 (280-300); Potassium 3.8 mEq/L (3.5-5.1); Sodium 135 mEq/L (136-145); eGFR For African Americans > 60 (> 60); eGFR For Non-African Americans 59 (> 60)
[2021-06-06 11:27] LABS: Lymphocytes # 0.7 K/mcL (0.6-4.6); Monocytes # 0.5 K/mcL (0.0-1.3)
[2021-06-06 11:28] LABS: Platelet Estimate Normal (Normal)
[2021-06-06 11:29] LABS: Reactive Lymphocytes Present (Not Present)
[2021-06-07] MEDS: Ipratropium 1 PUFF INHALER IH SCH ×4 (03:24→22:05)
[2021-06-07 05:49] LABS: Basophils % 0.2 %; Hematocrit 38.2 % (35.3-44.9); Hemoglobin 12.4 g/dL (11.5-15.4); Immature Granulocytes % 0.8 % (0-4); Lymphocytes # 0.7 K/mcL (0.6-4.6); Lymphocytes % 12.1 %; Mean Corpuscular HGB Conc 32.5 g/dL (31.6-35.5); Mean Corpuscular Hemoglobin 28.8 pg (28.0-33.3); Mean Corpuscular Volume 88.6 fL (83.0-100.0); Mean Platelet Volume 10.2 fL (9.4-12.4); Monocytes # 0.4 K/mcL (0.0-1.3); Monocytes % 6.4 %; Neutrophils # 4.9 K/mcL (1.6-8.9); Platelet Count 231 K/mcL (140-400); Red Blood Count 4.31 M/mcL (3.82-4.97); Red Cell Distribution Width 15.4 % (11.5-14.5); Segmented Neutrophils % 80.5 %; White Blood Count 6.1 K/mcL (4.3-11.1)
[2021-06-07] MEDS: *HR* Enoxaparin 40 MG/0.4 ML SYRINGE SQ SCH (05:51)
[2021-06-07 06:18] LABS: BUN/Creatinine Ratio 20 (6-26); Blood Urea Nitrogen 15 mg/dL (6-20); Carbon Dioxide 27 mEq/L (23-29); Chloride 100 mEq/L (98-107); Glucose 214 mg/dL (70-105); Magnesium 2.3 mg/dL (1.6-2.6); Osmolality,Calculated 291 (280-300); Potassium 4.1 mEq/L (3.5-5.1); Sodium 137 mEq/L (136-145); eGFR For African Americans > 60 (> 60); eGFR For Non-African Americans > 60 (> 60)
[2021-06-07] MEDS: rOPINIRole 1 MG TABLET PO SCH ×2 (07:33→19:46)
[2021-06-07] MEDS: Folic Acid 1 MG TABLET PO SCH (07:33)
[2021-06-07] MEDS: Pregabalin 75 MG CAPSULE PO SCH ×2 (07:33→19:46)
[2021-06-07] MEDS: Loratadine 10 MG TABLET PO SCH (07:33)
[2021-06-07] MEDS: Cyanocobalamin (B-12) 1,000 MCG TABLET PO SCH (07:33)
[2021-06-07] MEDS: Metoprolol XL (24 HR) Succ 25 MG TAB.ER.24H PO SCH (07:34)
[2021-06-07] MEDS: Cholecalciferol (D-3) 1,000 UNIT (25MCG) TABLET PO SCH (07:34)
[2021-06-07] MEDS: Furosemide 40 MG/4 ML VIAL IVP SCH (07:34)
[2021-06-07] MEDS: Aspirin 81 MG TAB.CHEW PO SCH (07:34)
[2021-06-07] MEDS: Acetaminophen 325 MG TABLET PO PRN (22:30)
[2021-06-07] MEDS: tiZANidine 4 MG TABLET PO PRN (22:30)
[2021-06-08] MEDS: Ipratropium 1 PUFF INHALER IH SCH ×4 (04:50→21:41)
[2021-06-08] MEDS: *HR* Enoxaparin 40 MG/0.4 ML SYRINGE SQ SCH (05:58)
[2021-06-08 06:18] LABS: Hematocrit 40.6 % (35.3-44.9); Hemoglobin 13.2 g/dL (11.5-15.4); Lymphocytes # 0.9 K/mcL (0.6-4.6); Mean Corpuscular HGB Conc 32.5 g/dL (31.6-35.5); Mean Corpuscular Hemoglobin 28.4 pg (28.0-33.3); Mean Corpuscular Volume 87.5 fL (83.0-100.0); Mean Platelet Volume 9.7 fL (9.4-12.4); Platelet Count 278 K/mcL (140-400); Red Blood Count 4.64 M/mcL (3.82-4.97); Red Cell Distribution Width 15.2 % (11.5-14.5); White Blood Count 5.3 K/mcL (4.3-11.1)
[2021-06-08 06:29] LABS: BUN/Creatinine Ratio 28 (6-26); Blood Urea Nitrogen 22 mg/dL (6-20); Calcium 9.5 mg/dL (8.6-10.3); Carbon Dioxide 28 mEq/L (23-29); Chloride 99 mEq/L (98-107); Glucose 245 mg/dL (70-105); Magnesium 2.3 mg/dL (1.6-2.6); Osmolality,Calculated 295 (280-300); Potassium 3.7 mEq/L (3.5-5.1); Sodium 137 mEq/L (136-145); eGFR For African Americans > 60 (> 60); eGFR For Non-African Americans > 60 (> 60)
[2021-06-08 08:40] LABS: Monocytes # 0.1 K/mcL (0.0-1.3); Neutrophils # 4.4 K/mcL (1.6-8.9); Platelet Estimate Normal (Normal)
[2021-06-08] MEDS: Aspirin 81 MG TAB.CHEW PO SCH (09:42)
[2021-06-08] MEDS: rOPINIRole 1 MG TABLET PO SCH ×2 (09:43→20:25)
[2021-06-08] MEDS: Folic Acid 1 MG TABLET PO SCH (09:43)
[2021-06-08] MEDS: Metoprolol XL (24 HR) Succ 25 MG TAB.ER.24H PO SCH (09:43)
[2021-06-08] MEDS: Cyanocobalamin (B-12) 1,000 MCG TABLET PO SCH (09:43)
[2021-06-08] MEDS: Loratadine 10 MG TABLET PO SCH (09:43)
[2021-06-08] MEDS: Cholecalciferol (D-3) 1,000 UNIT (25MCG) TABLET PO SCH (09:43)
[2021-06-08] MEDS: Pregabalin 75 MG CAPSULE PO SCH ×2 (09:43→20:25)
[2021-06-08] MEDS: Furosemide 40 MG/4 ML VIAL IVP SCH (09:44)
[2021-06-08] MEDS: tiZANidine 4 MG TABLET PO PRN (23:16)
[2021-06-09] MEDS: Ipratropium 1 PUFF INHALER IH SCH ×2 (04:08→10:51)
[2021-06-09] MEDS: *HR* Enoxaparin 40 MG/0.4 ML SYRINGE SQ SCH (05:48)
[2021-06-09 07:52] LABS: Basophils % 0.3 %; Hematocrit 39.8 % (35.3-44.9); Hemoglobin 12.6 g/dL (11.5-15.4); Immature Granulocytes % 1.3 % (0-4); Lymphocytes % 15.7 %; Mean Corpuscular HGB Conc 31.7 g/dL (31.6-35.5); Mean Corpuscular Hemoglobin 27.5 pg (28.0-33.3); Mean Corpuscular Volume 86.9 fL (83.0-100.0); Mean Platelet Volume 10.3 fL (9.4-12.4); Monocytes # 0.6 K/mcL (0.0-1.3); Monocytes % 9.9 %; Platelet Count 330 K/mcL (140-400); Red Blood Count 4.58 M/mcL (3.82-4.97); Red Cell Distribution Width 14.8 % (11.5-14.5); Segmented Neutrophils % 72.8 %; White Blood Count 6.4 K/mcL (4.3-11.1)
[2021-06-09 08:02] LABS: Neutrophils # 4.7 K/mcL (1.6-8.9)
[2021-06-09 08:17] LABS: BUN/Creatinine Ratio 32 (6-26); Blood Urea Nitrogen 25 mg/dL (6-20); Calcium 9.2 mg/dL (8.6-10.3); Carbon Dioxide 30 mEq/L (23-29); Chloride 94 mEq/L (98-107); Glucose 283 mg/dL (70-105); Magnesium 2.4 mg/dL (1.6-2.6); Osmolality,Calculated 299 (280-300); Potassium 3.8 mEq/L (3.5-5.1); Sodium 137 mEq/L (136-145); eGFR For African Americans > 60 (> 60); eGFR For Non-African Americans > 60 (> 60)
[2021-06-09] MEDS ORDERED: Furosemide 40 MG/4 ML VIAL IVP SCH (09:00)
[2021-06-09 09:05] LABS: Platelet Estimate Normal (Normal)
[2021-06-09] MEDS: Pregabalin 75 MG CAPSULE PO SCH (09:51)
[2021-06-09] MEDS: Cholecalciferol (D-3) 1,000 UNIT (25MCG) TABLET PO SCH (09:52)
[2021-06-09] MEDS: Cyanocobalamin (B-12) 1,000 MCG TABLET PO SCH (09:52)
[2021-06-09] MEDS: Folic Acid 1 MG TABLET PO SCH (09:52)
[2021-06-09] MEDS: Metoprolol XL (24 HR) Succ 25 MG TAB.ER.24H PO SCH (09:52)
[2021-06-09] MEDS: Loratadine 10 MG TABLET PO SCH (09:52)
[2021-06-09] MEDS: rOPINIRole 1 MG TABLET PO SCH (09:52)
[2021-06-09] MEDS: Aspirin 81 MG TAB.CHEW PO SCH (09:52)
[2021-06-09] MEDS: tiZANidine 4 MG TABLET PO PRN (10:09)
[2021-06-09 11:39] VITALS: BP 150/90; PULSE 73; TEMP 98.6
[2021-06-09 12:25] VITALS: O2SAT 90
== END 2021-06-09 15:05 | disposition home or self-care (01) | DRG 137 ==
LOC: 2ANU 17:06 → EMEROOARM 17:06 → SUATTDRO 22:44 → 3ANU 23:14
PROVIDERS: ADMIT Student in an Organized Health Care Education/Training Program; ATTEND Pharmacist